=== PATIENT | female | born 1940 ===

== ENCOUNTER 2023-04-07 20:52 | Inpatient (IN) | payer OTHER, SELFPAY ==
[2023-04-07] VITALS (70 sets, daily range): BP systolic 61–147; BP diastolic 26–107; BMI 22.7
--- NOTE | 2023-04-07 15:43 | ED.GENMED ---
History of Present Illness
<Jayleen Sullivan NP - Last Filed: 04/09/23 18:43>
General
Chief Complaint: Change in Mental Status
Source: ambulance crew and shelter
Exam Limitations: altered mental status
Time Seen by Provider: 04/07/23 15:37
Nursing documentation reviewed up to this point in time: agreed with
Travel History
Have you had any contact with someone who has COVID-19?: Unable to Answer
Do you have any symptoms of coronavirus? Fever > 100 degrees, chills, cough, shortness of breath, sore throat, loss of taste or smell, muscle aches, or headache?: Unable to Answer
History of Present Illness
History of Present Illness:
Patient to ED from [facility] for lethargy. Transport history of lethargy, severe cough after dialysis today. Pulse ox 80-83% RA prior to transfer here. Patient turning head to name but not opening eyes. No prior treatment at our facility.
Spoke with her sister Nancy. She was recently inpatient in [place] for heart issues. Sister reports that patient was told she needed a stent. Son requested transfer to [place]. [place] did not feel she was a candidate for surgery. She was
discharged to [facility].
Past History
<Jayleen Sullivan LABORATORY ASST - Last Filed: 04/09/23 18:43>
Past History
ED Past Medical History: CAD, CHF, HTN, Hypercholesterolemia, NIDDM, Renal failure (CRF, on dialysis) and Other (Hyperparathyroidism, aortic valve stenosis, thrombocytopenia)
ED Past Surgical History: Cardiac (pacemaker)
Review of Systems
<Jayleen Sullivan NP - Last Filed: 04/09/23 18:43>
Review of Systems
Allergies reviewed?: Yes
Other source history: shelter and ambulance crew
All Other Systems: ROS reviewed and negative except as documented in HPI and ROS
Constitutional: Reports fatigue
EENT: Reports no symptoms
Respiratory: Reports cough and other (hyposemia)
Cardiac: Reports no symptoms
ABD/GI: Reports no symptoms
: Reports other (CRF, on dialysis)
Musculoskeletal: Reports no symptoms
Skin: Reports no symptoms
Neurological: Reports weakness and other (Lethargic)
Psychiatric: Reports no symptoms
Phy Exam
<Jayleen Sullivan NP - Last Filed: 04/09/23 18:43>
General Physical Exam
General Presentation: moderate distress
General age: appears stated age
General Skin: warm and dry
General Habitus: elderly
Cardiovascular Exam
Cardiovascular Exam: regular rate/rhythm
Pulmonary Exam
Pulmonary Exam: decreased breath sounds
Gastrointestinal Exam
Gastrointestinal Exam: normal bowel sounds, non tender, soft and no organomegaly
Musculoskeletal Exam
Musculoskeletal Exam: neuro vasc intact
Skin Exam
Skin Exam: normal color and no rash
Course
<Jayleen Sullivan NP - Last Filed: 04/09/23 18:43>
Orders/Labs/Results
Orders:
Orders
04/07/23 Dinner
NPO
Allow oral meds: No
Allow clear liquids: No
04/07/23 15:18
Electrocardiogram (*1) Urgent
Reason for Study: Shortness of Breath
EKG- Treatment ONCE
04/07/23 15:36
Complete Blood Count/With Diff Urgent
04/07/23 15:41
CR Chest - 2 Views Urgent
Comment:
Reason For Exam: cough
04/07/23 15:42
0.9% Sodium Chloride 1000 ml [Nss] 1,000 ml IV BOLUS
04/07/23 15:50
COVID-19 Antigen Urgent
Source: Nasal Swab
Lactic Acid Q4H
Comment: CANCEL 2nd LACTIC ACID IF 1st LACTIC ACID IS LESS THAN 2
Blood Culture Q30M
GRECIA Source: Blood/Venous
Specimen Description:
Influenza A+B Rapid Molecular Urgent
GRECIA Source: Nasal Swab
Specimen Description:
04/07/23 17:36
Urinalysis Reflex To Culture Urgent
Date Specimen was Collected: 04/07/23
Time Specimen was Collected: 17:35
Urine Microscopic Reflex Cult Urgent
Urine Culture Urgent
GRECIA Source: U
Specimen Description:
Date Specimen was Collected: 04/07/23
Time Specimen was Collected: 17:35
04/07/23 17:37
Comprehensive Metabolic Panel Urgent
Triglycerides Urgent
Comment: ADDED
Blood Culture Q30M
GRECIA Source: Blood/Venous
Specimen Description:
04/07/23 18:57
Add On- LAB Urgent
Tests Added?: BNP
04/07/23 19:07
NORepinephrine 4 MG/250 ML [Levophed] 4 mg in 250 ml IV NOW
Initial dose in mcg/min, then titrate:: 4
Titrate to keep:: SBP > 90 mmHg
Titrate by mcg/min:: 1-2 mcg/min
Frequency of titrations (minutes):: 5
Maximum dose in ICU in mcg/min:: 30
Maximum dose in IMU in mcg/min:: 8
Maximum dose in IVU in mcg/min:: 4
Begin to taper infusion when:: Remained at goal for 4hrs
Taper by mcg/min:: 1-2 mcg/min
Frequency of taper (minutes) if patient maintains goal:: 30
Taper to off?: Yes
If infusion off & no longer maintaining goal:: Contact Provider
04/07/23 19:08
Bipap [RESP] Urgent
Patient to use own unit?: No
Inspiratory Pressure (cm H2O): 10
Expiratory Pressure (cm H2O): 5
04/07/23 20:02
Lactic Acid Q4H
Comment: CANCEL 2nd LACTIC ACID IF 1st LACTIC ACID IS LESS THAN 2
NT-proBNP Urgent
Troponin I Urgent
04/07/23 20:04
Cefepime HCl [Maxipime] 1,000 mg IV NOW STA
04/07/23 20:18
Sterile Water [Sterile Water For Injection] 10 ml .ROUTE .[facility]-MED ONE
04/07/23 20:32
Admit/Transfer Patient As Directed
Co-Sign Provider:
Level of Care: Inpatient admission
Assign to:: ICU
Physician / Group: leodan
Diagnosis: pulmonary edema
Reason for Hospitalization: pulmonary edema
Expected length of stay greater than two midnights?: Yes
ELOS- Estimated Length of Stay in days: 2
I certify the patient meets the requirements for IP care: Yes
04/07/23 20:33
Code Status As Directed
Resuscitation Status: Full Code
04/07/23 21:52
Activity As Directed
Activity Level: As Tolerated
Vital Signs As Directed
Frequency: Per unit guidelines
DX Deep Vein Thrombosis Video Routine
04/07/23 22:00
VANCOMYCIN Pharmacy to Dose [VANCOCIN Pharmacy to Dose] 1 each Pharmacy To Prepare [Call Pharmacy To Prepare] 0 ml IV PER PROTOCOL
04/08/23 02:00
Piperacillin/Tazo 2.25 Gram [Zosyn] 2.25 grams in 50 ml IV Q8H
04/08/23 05:05
Complete Blood Count/With Diff IN AM
Comprehensive Metabolic Panel IN AM
04/08/23 08:00
Heparin 5,000 units SC Q12
Abnormal Lab Results
04/07/23 04/07/23 04/07/23
15:36 15:50 17:36
RBC 3.23 L 10^6/uL
(4.20-5.40)
Hgb 10.4 L g/dL
(12.0-16.0)
Hct 31.6 L %
(37.0-47.0)
MCH 32.2 H pg
(27.0-31.0)
MCHC 32.9 L g/dL
(33.0-37.0)
RDW 23.3 H %
(11.5-14.5)
MPV 12.1 H fL
(7.4-10.4)
Abs Immat Gran (auto) 0.1 H 10^3/uL
(0-0.05)
Absolute Neuts (auto) 8.9 H 10^3/uL
(1.4-6.5)
Absolute Lymphs (auto) 0.6 L 10^3/uL
(1.2-3.4)
Immature Gran % 0.8 H %
(0-0.5)
Neutrophils % 87.5 H %
(42.2-75.2)
Lymphocytes % 6.2 L %
(20.5-51.1)
Carbon Dioxide
Creatinine
Glucose
Lactic Acid 3.4 H mmol/L
(0.7-2.0)
Calcium
Troponin I
Total Protein
Albumin
Urine Ketones Trace A
(Negative)
Ur Occult Blood Reflex 3+ A
(Negative)
Leukocyte Esterase Rfl 2+ A
(Negative)
Urine WBC (Reflex) >100 A /HPF
(0-5)
Urine Bacteria (Reflex) Many A
(Negative)
Urine Albumin (Reflex) 2+ A
(Neg - Trace)
04/07/23 04/07/23
17:37 20:02
RBC
Hgb
Hct
MCH
MCHC
RDW
MPV
Abs Immat Gran (auto)
Absolute Neuts (auto)
Absolute Lymphs (auto)
Immature Gran %
Neutrophils %
Lymphocytes %
Carbon Dioxide 21 L mmol/L
(22-30)
Creatinine 2.9 H mg/dL
(0.6-1.0)
Glucose 100 H mg/dl
(70-99)
Lactic Acid 6.1 H* mmol/L
(0.7-2.0)
Calcium 7.9 L mg/dl
(8.4-10.2)
Troponin I 1.150 H* ng/ml
Total Protein 5.4 L g/dl
(6.3-8.2)
Albumin 3.0 L g/dl
(3.5-5.0)
Urine Ketones
Ur Occult Blood Reflex
Leukocyte Esterase Rfl
Urine WBC (Reflex)
Urine Bacteria (Reflex)
Urine Albumin (Reflex)
04/07/23 15:36
04/07/23 17:37
Vital Signs
Initial and Last Documented VS:
Initial Vital Signs
Temp Pulse BP Pulse Ox
98.0 F 63 94/53 99
04/07/23 15:17 04/07/23 15:17 04/07/23 15:17 04/07/23 15:17
Last Documented Vital Signs
Temp Pulse Resp BP Pulse Ox
101.8 F H 89 26 133/103 100
04/12/23 07:20 04/12/23 09:00 04/12/23 09:00 04/09/23 11:41 04/12/23 08:00
<Alberto Betancourt, DO - Last Filed: 04/12/23 09:10>
Orders/Labs/Results
Orders:
Orders
04/07/23 Dinner
NPO
Allow oral meds: No
Allow clear liquids: No
04/07/23 15:18
Electrocardiogram (*1) Urgent
Reason for Study: Shortness of Breath
EKG- Treatment ONCE
04/07/23 15:36
Complete Blood Count/With Diff Urgent
04/07/23 15:41
CR Chest - 2 Views Urgent
Comment:
Reason For Exam: cough
04/07/23 15:42
0.9% Sodium Chloride 1000 ml [Nss] 1,000 ml IV BOLUS
04/07/23 15:50
COVID-19 Antigen Urgent
Source: Nasal Swab
Lactic Acid Q4H
Comment: CANCEL 2nd LACTIC ACID IF 1st LACTIC ACID IS LESS THAN 2
Blood Culture Q30M
GRECIA Source: Blood/Venous
Specimen Description:
Influenza A+B Rapid Molecular Urgent
GRECIA Source: Nasal Swab
Specimen Description:
04/07/23 17:36
Urinalysis Reflex To Culture Urgent
Date Specimen was Collected: 04/07/23
Time Specimen was Collected: 17:35
Urine Microscopic Reflex Cult Urgent
Urine Culture Urgent
GRECIA Source: U
Specimen Description:
Date Specimen was Collected: 04/07/23
Time Specimen was Collected: 17:35
04/07/23 17:37
Comprehensive Metabolic Panel Urgent
Triglycerides Urgent
Comment: ADDED
Blood Culture Q30M
GRECIA Source: Blood/Venous
Specimen Description:
04/07/23 18:57
Add On- LAB Urgent
Tests Added?: BNP
04/07/23 19:07
NORepinephrine 4 MG/250 ML [Levophed] 4 mg in 250 ml IV NOW
Initial dose in mcg/min, then titrate:: 4
Titrate to keep:: SBP > 90 mmHg
Titrate by mcg/min:: 1-2 mcg/min
Frequency of titrations (minutes):: 5
Maximum dose in ICU in mcg/min:: 30
Maximum dose in IMU in mcg/min:: 8
Maximum dose in IVU in mcg/min:: 4
Begin to taper infusion when:: Remained at goal for 4hrs
Taper by mcg/min:: 1-2 mcg/min
Frequency of taper (minutes) if patient maintains goal:: 30
Taper to off?: Yes
If infusion off & no longer maintaining goal:: Contact Provider
04/07/23 19:08
Bipap [RESP] Urgent
Patient to use own unit?: No
Inspiratory Pressure (cm H2O): 10
Expiratory Pressure (cm H2O): 5
04/07/23 20:02
Lactic Acid Q4H
Comment: CANCEL 2nd LACTIC ACID IF 1st LACTIC ACID IS LESS THAN 2
NT-proBNP Urgent
Troponin I Urgent
04/07/23 20:04
Cefepime HCl [Maxipime] 1,000 mg IV NOW STA
04/07/23 20:18
Sterile Water [Sterile Water For Injection] 10 ml .ROUTE .[facility]
04/07/23 20:32
Admit/Transfer Patient As Directed
Co-Sign Provider:
Level of Care: Inpatient admission
Assign to:: ICU
Physician / Group: leodan
Diagnosis: pulmonary edema
Reason for Hospitalization: pulmonary edema
Expected length of stay greater than two midnights?: Yes
ELOS- Estimated Length of Stay in days: 2
I certify the patient meets the requirements for IP care: Yes
04/07/23 20:33
Code Status As Directed
Resuscitation Status: Full Code
04/07/23 21:52
Activity As Directed
Activity Level: As Tolerated
Vital Signs As Directed
Frequency: Per unit guidelines
DX Deep Vein Thrombosis Video Routine
04/07/23 22:00
VANCOMYCIN Pharmacy to Dose [VANCOCIN Pharmacy to Dose] 1 each Pharmacy To Prepare [Call Pharmacy To Prepare] 0 ml IV PER PROTOCOL
04/08/23 02:00
Piperacillin/Tazo 2.25 Gram [Zosyn] 2.25 grams in 50 ml IV Q8H
04/08/23 05:05
Complete Blood Count/With Diff IN AM
Comprehensive Metabolic Panel IN AM
04/08/23 08:00
Heparin 5,000 units SC Q12
Abnormal Lab Results
04/07/23 04/07/23 04/07/23
15:36 15:50 17:36
RBC 3.23 L 10^6/uL
(4.20-5.40)
Hgb 10.4 L g/dL
(12.0-16.0)
Hct 31.6 L %
(37.0-47.0)
MCH 32.2 H pg
(27.0-31.0)
MCHC 32.9 L g/dL
(33.0-37.0)
RDW 23.3 H %
(11.5-14.5)
MPV 12.1 H fL
(7.4-10.4)
Abs Immat Gran (auto) 0.1 H 10^3/uL
(0-0.05)
Absolute Neuts (auto) 8.9 H 10^3/uL
(1.4-6.5)
Absolute Lymphs (auto) 0.6 L 10^3/uL
(1.2-3.4)
Immature Gran % 0.8 H %
(0-0.5)
Neutrophils % 87.5 H %
(42.2-75.2)
Lymphocytes % 6.2 L %
(20.5-51.1)
Carbon Dioxide
Creatinine
Glucose
Lactic Acid 3.4 H mmol/L
(0.7-2.0)
Calcium
Troponin I
Total Protein
Albumin
Urine Ketones Trace A
(Negative)
Ur Occult Blood Reflex 3+ A
(Negative)
Leukocyte Esterase Rfl 2+ A
(Negative)
Urine WBC (Reflex) >100 A /HPF
(0-5)
Urine Bacteria (Reflex) Many A
(Negative)
Urine Albumin (Reflex) 2+ A
(Neg - Trace)
04/07/23 04/07/23
17:37 20:02
RBC
Hgb
Hct
MCH
MCHC
RDW
MPV
Abs Immat Gran (auto)
Absolute Neuts (auto)
Absolute Lymphs (auto)
Immature Gran %
Neutrophils %
Lymphocytes %
Carbon Dioxide 21 L mmol/L
(22-30)
Creatinine 2.9 H mg/dL
(0.6-1.0)
Glucose 100 H mg/dl
(70-99)
Lactic Acid 6.1 H* mmol/L
(0.7-2.0)
Calcium 7.9 L mg/dl
(8.4-10.2)
Troponin I 1.150 H* ng/ml
Total Protein 5.4 L g/dl
(6.3-8.2)
Albumin 3.0 L g/dl
(3.5-5.0)
Urine Ketones
Ur Occult Blood Reflex
Leukocyte Esterase Rfl
Urine WBC (Reflex)
Urine Bacteria (Reflex)
Urine Albumin (Reflex)
04/07/23 15:36
04/07/23 17:37
Vital Signs
Initial and Last Documented VS:
Initial Vital Signs
Temp Pulse BP Pulse Ox
98.0 F 63 94/53 99
04/07/23 15:17 04/07/23 15:17 04/07/23 15:17 04/07/23 15:17
Last Documented Vital Signs
Temp Pulse Resp BP Pulse Ox
101.8 F H 89 26 133/103 100
04/12/23 07:20 04/12/23 09:00 04/12/23 09:00 04/09/23 11:41 04/12/23 08:00
<Jayleen Sullivan NP - Last Filed: 04/09/23 18:43>
*Radiology
Radiology exam reviewed: radiology read reviewed
*Pulse Oximetry
Patient hypoxic: yes
*Critical Care Note
Total Time (30-74mins, 75-104mins- exclusive of procedures): Not Applicable
<Alberto Betancourt DO - Last Filed: 04/12/23 09:10>
*Critical Care Note
Total Time (30-74mins, 75-104mins- exclusive of procedures): 30
comment:
Critical care statement: A total of 30 minutes of critical care time was provided for this patient. This includes management of unstable vital signs, evaluation of the patient at bedside, reviewing the patient's pertinent medical records, discussion
with consultants, review of old EKGs and review of pertinent medical records. This time with separate from time utilized to perform the aforementioned documented procedures
<Jayleen Sullivan LABORATORY ASST - Last Filed: 04/09/23 18:43>
Update Note
Update Note:
Patient to ED from [facility] for lethargy, cough. CXR=CHF Hypotensive. Placed on Levophed. Pulse ox dropping into the mid 80's. Placed on hi-flow. PUlse ox up to 93%. Dr. Betancourt in to speak with patients son. Son indecisive regarding
mothers wishes. Becoming argumentative. Patient is admitted to hospitalist service for respiratory failure, CHF, UTI.
ED Attending Note
<Jayleen Sullivan NP - Last Filed: 04/09/23 18:43>
-
Portions of this chart may have been created with voice recognition software.� Occasional wrong word or��sound alike� substitutions may have occurred due to the inherent limitations of voice recognition software.
<Alberto Betancourt, DO - Last Filed: 04/12/23 09:10>
ED Attending Note
Patient seen and examined by attending physician: Yes
I performed the substantive portion of visit, reviewed & personally made and approve the management plan that is documented in note by myself or GILBERTO.: Yes
ED Attending Note:
I have reviewed and agree with history and treatment plan by Jayleen Sullivan. My exam reveals 82-year-old female hypotension, nonverbal, respiratory distress placed on BiPAP. Patient had refused dialysis, and refused TAVR. She has a DNR and does
not wish for further care. This was discussed with her son, who is unable to make decisions about her care at this time. Discussed with patient's sister, who states patient does not want intubation dialysis or procedures. Patient's oxygen blood
pressure improved, she was admitted to ICU for further treatment.
Discharge Plan
Departure
Patient Disposition: Admit
Date of Disposition: 04/07/23
Time of Disposition: 19:37
Presentation/result/management discussed w/ accepting MD/DO: Hospitalist
Covid-19: Not Applicable
Discharge Problem:
CHF (congestive heart failure), Hypotension, Respiratory failure
Interventions
Interventions:
*General Assessment Last Done: 04/07/23 22:39
*Neglect/Abuse Screening Last Done: 04/07/23 22:39
ED- Fall Risk Assessment Last Done: 04/07/23 22:39
*ED COVID-19 Vaccine History Last Done: 04/07/23 22:39
*Nursing Disposition Last Done: 04/07/23 22:39
ED- Pulmonary Assessment Last Done: 04/07/23 21:05
ED- Neurological Assessment Last Done: 04/07/23 15:23
ED- Cardiac Assessment Last Done: 04/07/23 15:23
Discharge Date and Time
Discharge Date/Time: 04/07/23 22:00
[2023-04-07 15:58] LABS: % Basophils 0.3 % (0-2); % Immature Granulocytes 0.8 % (0-0.5); % Lymphocytes 6.2 % (20.5-51.1); % Monocytes 5.2 % (1.7-9.3); % Neutrophils 87.5 % (42.2-75.2); Absolute Immature Granulocytes 0.1 10^3/uL (0-0.05); Absolute Lymphocytes 0.6 10^3/uL (1.2-3.4); Absolute Monocytes 0.5 10^3/uL (0.1-0.6); Absolute Neutrophils 8.9 10^3/uL (1.4-6.5); Hematocrit 31.6 % (37.0-47.0); Hemoglobin 10.4 g/dL (12.0-16.0); Mean Corp Hgb Conc. 32.9 g/dL (33.0-37.0); Mean Corpuscular Hgb 32.2 pg (27.0-31.0); Mean Corpuscular Volume 97.8 fL (81.0-99.0); Mean Platelet Volume 12.1 fL (7.4-10.4); Nucleated Red Blood Cells % 4.3 %; Platelet Count 186 10^3/uL (130-400); Red Blood Cell Count 3.23 10^6/uL (4.20-5.40); White Blood Cell Count 10.2 10^3/uL (4.8-10.8)
[2023-04-07 16:04] LABS: Red Cell Dist. Width 23.3 % (11.5-14.5)
[2023-04-07 16:09] LABS: Lactic Acid 3.4 mmol/L (0.7-2.0)
[2023-04-07 16:17] LABS: COVID-19 Antigen Negative (Negative)
[2023-04-07 16:49] LABS: Anisocytosis 2+; Macrocytosis 3+; Microcytosis 2+; Normal RBC Morphology No; Poikilocytosis Slight; Polychromasia 1+; Target Cells 1+
[2023-04-07 16:50] LABS: Ovalocytes 1+
[2023-04-07] MEDS: NSS 1000 IV (17:16)
[2023-04-07 17:49] LABS: Urine Albumin 2+ (Neg - Trace); Urine Bilirubin Negative (Negative); Urine Character Mucous (Clear); Urine Color Yellow; Urine Glucose Negative (Negative); Urine Ketone Trace (Negative); Urine Leukocyte 2+ (Negative); Urine Nitrite Negative (Negative); Urine Occult Blood 3+ (Negative); Urine Specific Gravity 1.015 (<1.030); Urine Urobilinogen Negative (Neg - 1+)
[2023-04-07 17:54] LABS: Urine Granular Cast 0-2 /LPF (0); Urine Squamous Cell 0-2 /LPF (Few)
[2023-04-07 17:55] LABS: Urine Bacteria Many (Negative); Urine White Cell >100 /HPF (0-5)
[2023-04-07 18:01] LABS: ALT (SGPT) 21 U/L (0-35); AST (SGOT) 33 U/L (14-36); Alkaline Phosphatase 96 U/L (38-126); Blood Urea Nitrogen 16 mg/dl (7-17); Calcium 7.9 mg/dl (8.4-10.2); Carbon Dioxide 21 mmol/L (22-30); Chloride 104 mmol/L (98-107); Estimated Creatinine Clearance 11 ml/min; Glucose 100 mg/dl (70-99); Potassium 4.4 mmol/L (3.5-5.1); Sodium 135 mmol/L (135-145); Total Protein 5.4 g/dl (6.3-8.2); eGFR 15.87
[2023-04-07] MEDS: LEVOPHED 250 IV (19:17)
[2023-04-07] MEDS: MAXIPIME 1000 MG IV (20:21)
[2023-04-07 20:32] LABS: Lactic Acid 6.1 mmol/L (0.7-2.0)
[2023-04-07 20:50] LABS: NT-proBNP > 27000 pg/ml
--- NOTE | 2023-04-07 20:52 | HPS.HSE ---
Family Physician
-
Family Physician: Jacob Taylor
Chief Complaint
-
hypoxia
History of Present Illness
82-year-old female past medical history of end-stage renal disease on hemodialysis, CAD, aortic stenosis, CHF, pacemaker, hypertension, hypercholesteremia,presenting from [facility] for lethargy. Patient had severe cough after dialysis today.
Pulse ox was 83% on room air prior to transfer here. Per patient's son she was recently admitted at another hospital, possibly [facility] (In [place]) as per son. Apparently as per him patient required cardiac stent for CAD
as well as TAVR but patient had refused TAVR and cardiac stenting was not performed for unclear reason. Unclear if CABG was necessary. Transferred to [place] was considered they did not feel she was a candidate for surgery. She was eventually
discharged to [facility].
Patient cannot provide any history at this time.
Patient does not drink alcohol or smoke.
Medical History
Past Medical History
Past Medical History: Reports Other (end-stage renal disease on hemodialysis, CAD, aortic stenosis, CHF, pacemaker, hypertension, hypercholesteremia)
Past Surgical History: Reports None
Social History
Tobacco: Non-smoker
Alcohol: None
Drug: None
Family History
Family History: Not pertinent
Allergies / Home Medications
Allergies reflects when Allergies were last updated in [facility].
Home Medications with original date entered in [facility]
Allergy/Medication List:
Allergies
Allergy/AdvReac Type Severity Reaction Status Date / Time
No Known Allergies Allergy Unverified 04/07/23 15:32
Home Medications
acetaminophen 325 mg tablet (Tylenol) 650 mg PO Q6HPRN PRN mild pain 04/07/23
amlodipine 10 mg tablet (Norvasc) 10 mg PO DAILY Gastrointestinal Issue 04/07/23
atorvastatin 20 mg tablet (Lipitor) 20 mg PO HS High Cholesterol 04/07/23
bisacodyl 10 mg rectal suppository (Dulcolax (bisacodyl)) 10 mg ME DAILYPRN PRN constipation 04/07/23
guaifenesin 100 mg/5 mL oral liquid (Tangela-Tussin) 200 mg PO Q4HPRN PRN cough 04/07/23
metoprolol succinate 25 mg tablet,extended release 24 hr (Toprol XL) 25 mg PO DAILY Blood Pressure 04/07/23
Review of Systems
-
History Source: Patient
A 12 point ROS was completed and negative except as noted: Yes
Constitutional: Reports No Symptoms
EENT: Reports No Symptoms
Respiratory: Reports No Symptoms
Cardiac: Reports No Symptoms
Abdomen/GI: Reports No Symptoms
: Reports No Symptoms
Musculoskeletal: Reports No Symptoms
Skin: Reports No Symptoms
Neurological: Reports No Symptoms
Endocrine: Reports No Symptoms
Hematologic/Lymphatic: Reports No Symptoms
Psych: Reports No Symptoms
Physical Exam
Vital Signs
Vital Signs
Temp Pulse BP Pulse Ox
98.0 F 63 133/57 93
04/07/23 15:17 04/07/23 19:50 04/07/23 19:50 04/07/23 19:50
Physical Exam
General: Well Developed, Well Nourished and No Apparent Distress
HEENT: NormoCephalic, Moist mucous membranes and Atraumatic
Respiratory: Clear
Cardiac: S1/S2 and Regular Rhythm; No Murmur or Rub
GI: Soft, Non Tender, Non Distended and Normal Bowel Sounds; No Organomegaly
Rectal: Deferred by Provider
Musculoskeletal: No Clubbing, No Cyanosis and No Edema
Skin: No Rash
Neuro: Nonfocal/grossly intact
Laboratory Results
-
04/07/23 15:36
04/07/23 17:37
Laboratory Results
Lactic Acid 6.1 mmol/L (0.7-2.0) H* 04/07/23 20:02
Total Bilirubin 1.0 mg/dl (0.2-1.3) 04/07/23 17:37
AST 33 U/L (14-36) 04/07/23 17:37
ALT 21 U/L (0-35) 04/07/23 17:37
Alkaline Phosphatase 96 U/L (38-126) 04/07/23 17:37
Troponin I 1.150 ng/ml H* 04/07/23 20:02
Data Reviewed
-
Lab Data: Labs Reviewed by me
Old Records: Reviewed
Impression/Plan
-
IMPRESSION:
PLAN:
# Hypoxic respiratory failure secondary acute on chronic CHF exacerbation, unclear type
# History of ESRD status post dialysis today
-Patient initially hypotensive with blood pressure 60 systolic
-Chest x-ray shows interstitial/alveolar pulmonary edema with moderate bilateral pleural effusions
-1 L IV fluids, Levophed started
-Patient currently on nonrebreather, BiPAP to be initiated
-Check echocardiogram
-Obtain records from [facility]
-Cardiology consulted
-Patient has midline, IJ for dialysis
-Barcenas catheter to be placed
-Nephrology consulted for dialysis
# Septic shock secondary to UTI/possible pneumonia
-Urinalysis shows greater than 100 WBC, +2 leukocyte esterase
-Lactate of 6.1
-Check blood cultures
-Maintenance IV fluids with goal of reducing Levophed for eventual dialysis
-Vancomycin/Zosyn
End-stage renal disease on hemodialysis
-Underwent dialysis today
-Nephrology consulted for dialysis
Coronary artery disease
-Unclear if she was CABG candidate or stent was not necessary
History of severe aortic stenosis
-Patient was being considered for TAVR
Essential hypertension
-Hold amlodipine
-Hold metoprolol
Hypercholesterolemia
-Hold statin
Chronic anemia
Full code
DVT prophylaxis heparin
N.p.o.
--- NOTE | 2023-04-07 21:01 | PHA.VAN.IN ---
Assessment
- Assessment
Renal Function: Patient has ESRD, on chronic Hemodialysis
Hemodialysis Schedule: MWF
Concomitant Antimicrobials: ZOSYN
- Previous Dosing Experience
Previous Regimen: NONE
Plan
- Plan
Initial / Loading Dose: 1250MG
Maintenance Regimen: DOSING BY RANDOM LEVEL
Monitoring: RANDOM VANCOMYCIN LEVEL 04/08/23 AM
Pharmacokinetics Vancomycin I
- -
Patient Age: 82
Patient Sex: Female
Vancomycin Day #: 1
Indication: Pulmonary/Respiratory (SEPTIC SHOCK)
Requesting Provider: DARELL
Height / Weight:
Height 5 ft
Actual Weight 52.7 kg
Pertinent Past Medical History: ESRD
- Vital Signs / Lab Results
Temp Pulse BP Pulse Ox
98.0 F 63 110/76 95
04/07/23 15:17 04/07/23 20:51 04/07/23 20:51 04/07/23 20:51
Lab Results - Hematology
04/07/23
15:36
WBC 10.2
Lab Results - Chemistry
04/07/23 04/07/23
15:36 17:37
BUN Cancelled 16
Creatinine Cancelled 2.9 H
Estimated Creat Clear Cancelled 11
Albumin Cancelled 3.0 L
04/07/23 04/07/23
15:50 20:02
Lactic Acid 3.4 H 6.1 H*
Lab Results - Urine
04/07/23
17:36
Urine Nitrite (Reflex) Negative
Leukocyte Esterase Rfl 2+ A
Urine WBC (Reflex) >100 A
Ur Squamous Epith Cells 0-2
Urine Bacteria (Reflex) Many A
Microbiology Results
04/07/23 15:50 Influenza Types A & B (BRIAN) - Final
Nasal Swab Negative for Influenza A & B, NAAT
Negative results must be combined with clinical observations
and patient history.
Nucleic Acid Amplification test (NAAT)performed on the
[employer] NOW platform.
[2023-04-07] MEDS: VANCOCIN 275 MG IV (21:34)
--- NOTE | 2023-04-07 22:00 | PTCARENOTE ---
Pt admitted to unit from ED via stretcher. Pt appears to be unresponsive. Received pt on levo gtt infusing at 7 mcg/min via right midline. Pt on high flow O2 and non rebreather at max capacity satting at 90% pulse ox. On auscultation pt lungs sound
coarse, rhonchorous, diminished, and with an inspiratory wheeze.
--- NOTE | 2023-04-07 22:50 | W.PN.ANESINT ---
Anesthesia Intubation Note
- Intubation Note
Intubation Note:
Diagnosis: respiratory distress
Blade: glidescope
Tube Size: 8.0
Depth: 22cm at teeth
Side Taped: center
Drugs Used: 30mg propofol, 20mg succinylcholine, 600mcg phenylephrine
Grade View: 1 via live glidescope
EtCO2 Present: yes color change on ETCO2 detector
Atraumatic: yes
Attempts: 1
Insertion Start and Stop Time: 2227 start 2234 end
SaO2 Pre: 91
SaO2 Post: 99
Glidescope Used: yes
Other Airway Adjustments:
Pre-Oxygenated: yes
Portable Chest X-Ray:
RSI:
Suctioned: minimal secretions
Bilateral Breath Sounds Confirmed: bilateral breath sounds noted, no breath sounds over abdomen or stomach
Vent Settings:
Settings per _yes__Attending Physician
--- NOTE | 2023-04-07 22:59 | CON.MD ---
Consultation - Medical
-
IMP:
Acute Hypoxic respiratory failure
acute on chronic CHF exacerbation, unclear type
suspected Septic shock secondary to UTI/possible pneumonia
End-stage renal disease on hemodialysis-[facility]
Coronary artery disease-Unclear if she was CABG candidate or stent was not necessary
History of severe aortic stenosis
Essential hypertension
Hypercholesterolemia
Chronic anemia
PPM
Plan:
A/w pulm edema hypotension from [facility]
had HD today but CXR pulm edema
s/p IVF initially for hypotension
now intubated
pressors to keep MAP>65
Believe she has sig vascular burden with severe and hard to maintain hemodynamics on HD
will plan HD tomorrow, but concern if she will tolerate
abx per primary, await cxxs
has tunneled catheter-ESRD status information is lacking since she never been to our system before
we really need GOC discussion with son
[id number]
[2023-04-07] MEDS: SUBLIMAZE 50 MCG IV ×2 (23:00→23:45)
--- NOTE | 2023-04-07 23:08 | W.PN.SEPSIS ---
Sepsis
Vital Signs
Temp Pulse Resp BP Pulse Ox
98.0 F 76 30 134/92 97
04/07/23 15:17 04/07/23 22:15 04/07/23 22:15 04/07/23 22:00 04/07/23 22:57
Physical Exam
Physical Exam:
A focused exam was performed after fluid resuscitation.
Capillary Refill
Bilateral Upper Extremity:
Adelia Time: Less than 3 sec
Bilateral Lower Extremity:
Adelia Time: Less than 3 sec
Pulse Evaluation
Bilateral Radial:
Pulse Evaluation: Present
Bilateral Dorsalis Pedis:
Pulse Evaluation: Present
--- NOTE | 2023-04-07 23:09 | W.PN.UPDATE ---
Update Note
Progress Note Update
04/07/23
Patient upon arrival to the ICU became hypoxic sustaining 70s% on non rebreather and high flow nasal cannula. After transferring and turning the patient she became more hypoxic sustaining 60s%, she was immediately bagged with ambu mask, patient was
minimally responsive only with noxious stimuli. Discussed with patient's son, Lam Tapia, about intubation and plan of care. While explaining patient's critical condition and pulmonary edema which is causing the hypoxia, Lam had multiple
questions which were answered and rephrased/re-explained at this request but he then became belligerent with myself and staff. Lam expressed that he had verbal altercation in the emergency room with 'Dr. Whitlock' as he described the physician trying
to explain his mother's critical condition and looking for guidance as to plan of care and next medical interventions. He was verbally asked three times if intubation and FULL CODE status was what he wanted for his mother, he stated 'yes'. He was
asked to leave for the intubation procedure. Anesthesia was paged STAT for intubation.
2229- Patient was intubated by PORTRAIT CONSULTANT. Propofol gtt, fentanyl prn and fentanyl gtt ordered per light sedation protocol.
2299- Dr. Noble, process treater at bedside, recommendations given. At this time patient is critical and hypotensive on levophed gtt, unclear if she would tolerate dialysis.
--- NOTE | 2023-04-07 23:35 | PTCARENOTE ---
Shortly after being transferred to unit pt's respiratory status has worsened. Pulse ox in the 70s. Anesthesia notified and pt was intubated. Propofol gtt initiated and PRN fentanyl bolus doses administered by this RN for sedation per protocol. Levo
gtt titrated up 14 mcg/min due to hypotension per protocol.
[2023-04-08] VITALS (85 sets, daily range): BP systolic 69–135; BP diastolic 23–95; BMI 21.0
[2023-04-08 00:10] LABS: Triglycerides 103 mg/dl (10-149)
[2023-04-08 00:33] LABS: B.E. -10.7 mmol/L; O2 Saturation % 97.8 % (94-98); PCO2 37 mmHg (32-35); PO2 116 mmHg (83-108); pH 7.24 (7.35-7.45)
[2023-04-08 00:34] LABS: O2 Therapy NC
[2023-04-08 00:35] LABS: HCO3 15.9 mmol/L (21-28)
[2023-04-08] MEDS: LEVOPHED 250 IV ×4 (01:51→15:00)
[2023-04-08] MEDS: ZOSYN 50 IV ×3 (02:13→17:46)
[2023-04-08] MEDS: SODIUM BICARBONATE 50 MEQ IV (03:45)
--- NOTE | 2023-04-08 04:30 | PTCARENOTE ---
Pt's BP improving. Levo gtt tapered per protocol. Pt tolerating vent settings satting at 100% pulse ox. VSS.
[2023-04-08 05:17] LABS: Venous Blood Gas B.E. -6.3 mmol/L (-4 to +4); Venous Blood Gas HCO3 20.6 mmol/L (22-27); Venous Blood Gas pCO2 46 mmHg (35-48); Venous Blood Gas pH 7.26 (7.32-7.43); Venous Blood Gas pO2 67 mmHg (30-50)
[2023-04-08 05:34] LABS: APTT 33.1 Sec (23.4-35.0); INR 1.52; PT 18.4 Sec (11.4-14.6)
[2023-04-08 05:46] LABS: % Basophils 0.4 % (0-2); % Immature Granulocytes 0.6 % (0-0.5); % Lymphocytes 1.9 % (20.5-51.1); % Monocytes 3.4 % (1.7-9.3); % Neutrophils 93.7 % (42.2-75.2); Absolute Basophils 0.1 10^3/uL (0-0.2); Absolute Immature Granulocytes 0.1 10^3/uL (0-0.05); Absolute Lymphocytes 0.4 10^3/uL (1.2-3.4); Absolute Monocytes 0.8 10^3/uL (0.1-0.6); Absolute Neutrophils 20.5 10^3/uL (1.4-6.5); Hematocrit 31.6 % (37.0-47.0); Hemoglobin 10.5 g/dL (12.0-16.0); Mean Corp Hgb Conc. 33.2 g/dL (33.0-37.0); Mean Corpuscular Volume 99.4 fL (81.0-99.0); Mean Platelet Volume 11.9 fL (7.4-10.4); Nucleated Red Blood Cells % 6.5 %; Platelet Count 142 10^3/uL (130-400); Red Blood Cell Count 3.18 10^6/uL (4.20-5.40); Red Cell Dist. Width 23.1 % (11.5-14.5); White Blood Cell Count 21.8 10^3/uL (4.8-10.8)
[2023-04-08 05:51] LABS: Lactic Acid 3.9 mmol/L (0.7-2.0)
[2023-04-08 05:52] LABS: ALT (SGPT) 82 U/L (0-35); AST (SGOT) 156 U/L (14-36); Albumin 2.8 g/dl (3.5-5.0); Alkaline Phosphatase 104 U/L (38-126); Blood Urea Nitrogen 24 mg/dl (7-17); Calcium 8.5 mg/dl (8.4-10.2); Carbon Dioxide 21 mmol/L (22-30); Chloride 100 mmol/L (98-107); Estimated Creatinine Clearance 9 ml/min; Glucose 176 mg/dl (70-99); Potassium 4.1 mmol/L (3.5-5.1); Sodium 136 mmol/L (135-145); Total Bilirubin 1.2 mg/dl (0.2-1.3); Total Protein 5.2 g/dl (6.3-8.2); eGFR 12.67
[2023-04-08 05:56] LABS: Vancomycin Random 18.9 ug/ml
--- NOTE | 2023-04-08 07:25 | PTCARENOTE ---
Received pt intubated and sedated with bilateral soft wrist restraints intact. She moves her eyes with verbal and tactile stimuli but is not following commands. She moves all extremities with stimuli and repositioning. Doppler popliteal pulses
bilaterally, feet cold with scattered scabs and extremely dry flaking skin. Poor capillary refill. Weak radial pulses. Loud Murmur. #8ETT secured 24 cm right lip. Tolerating AC 16/350/.10/+5. Breath sound coarse rhonchi throughout. Late expiratory
wheeze on the left. Josephine frothy secretions via ETT. Hypoactive BSX4. Anuric. Right ACW tunnelled HD catheter capped, dressing CDI. Right upper arm midline with Levophed 12mcg/min & Propofol 20mcg/kg/min. Unable to obtain peripheral access.
Aspiration precautions maintained. Safe environment maintained.
--- NOTE | 2023-04-08 07:32 | CON.INTV ---
Consultation
Consultation Request
Date/Time Consultation Requested: 04-08-23
Date/Time Consultation Performed: 04-08-23
Requesting Provider: Hospitalist
Performing Provider: Dr Coffey
Reason for Consultation: hypoxemia
Medical History
-
Chief Complaint: dyspnea
History of Present Illness:
Mrs Usha Tapia is an 82/W adm 04-07 from [place] with lethargy and severe cough after HD on DOA, and POx 80-83% on RA prior to transfer.
PMH: CAD, CHF, HTN, NIDDM, CKD on HD, , reported recent adm to [facility] where she was recommended coronary stenting and TAVR but patient refused (not accepted in transfer to [place] as was not a surgical candidate).
On adm (first adm), hypoxemia, hypotension (received 1L NS at ER), developed pulmonary edema and worsening hypoxemia, intubated at ICU.
Past Medical History
Past Medical History: Other (see A&P for PMH/PSH)
Social History
Tobacco: Non-smoker
Alcohol: None
Drug: None
Living: Fdc
Employment: Not Employed
Family History
Family History: Reviewed & Not Pertinent
Allergies / Home Medications
Allergies
Allergy/AdvReac Type Severity Reaction Status Date / Time
No Known Allergies Allergy Unverified 04/07/23 15:32
Home Medications
Medication Instructions Recorded Confirmed Last Taken Type
acetaminophen 325 mg tablet 650 mg PO Q6HPRN PRN mild pain 04/07/23 04/07/23 Unknown History
(Tylenol)
amlodipine 10 mg tablet (Norvasc) 10 mg PO DAILY Gastrointestinal 04/07/23 04/07/23 Unknown History
Issue
atorvastatin 20 mg tablet (Lipitor) 20 mg PO HS High Cholesterol 04/07/23 04/07/23 Unknown History
bisacodyl 10 mg rectal suppository 10 mg SC DAILYPRN PRN constipation 04/07/23 04/07/23 Unknown History
(Dulcolax (bisacodyl))
guaifenesin 100 mg/5 mL oral 200 mg PO Q4HPRN PRN cough 04/07/23 04/07/23 Unknown History
liquid (Tangela-Tussin)
metoprolol succinate 25 mg 25 mg PO DAILY Blood Pressure 04/07/23 04/07/23 Unknown History
tablet,extended release 24 hr
(Toprol XL)
Review of Systems
-
Unable to Obtain full review of systems at this time due to: Patient Intubation
Vitals / Labs / Diagnostic Testing
Vital Signs
Temp Pulse Resp BP Pulse Ox
97.6 F 63 20 109/42 100
04/08/23 04:10 04/08/23 07:15 04/08/23 07:15 04/08/23 07:00 04/08/23 07:15
Lab Data
04/08/23 05:05
04/08/23 05:05
Laboratory Results
04/08/23 04/08/23
00:26 05:05
PT 18.4 H
INR 1.52
APTT 33.1
pH 7.24 L
pCO2 37 H
pO2 116 H
HCO3 15.9 L*
O2 Delivery Level Nc
Microbiology
04/07/23 15:50 Nasal Swab Influenza Types A & B (BRIAN) - Final
Negative for Influenza A & B, NAAT
Negative results must be combined with clinical observations
and patient history.
Nucleic Acid Amplification test (NAAT)performed on the
[employer] platform.
Diagnostic Testing:
Physical Exam
-
HEENT: Normocephalic and Moist Mucous Membranes
Cardiovascular: Regular Rhythm and Peripheral Edema (trace GAVIN)
Respiratory: Wheeze (n), Rales and Accessory Resp Muscle Use (n)
GI: Soft and Non Distended
Neurology: Other (sedated)
General: Respiratory Distress
Assessment
-
Assessment:
Mrs Usha Tapia is an 82/W adm 04-07 from [place] with lethargy and severe cough after HD on DOA, and POx 80-83% on RA prior to transfer. PMH: CAD, CHF, HTN, NIDDM, CKD on HD, , reported recent adm to OSH where she was recommended coronary stenting
and TAVR but patient refused (not accepted in transfer to [facility] as was not a surgical candidate). On adm (first adm), hypoxemia, hypotension (received 1L NS at ER), developed pulmonary edema and worsening hypoxemia, intubated at ICU.
Impression:
Acute hypoxemic respiratory failure
Intubated at ICU 04-07
Pulmonary edema
Missed HD session 04-05 (last HD 04-03)
Suspected sepsis
Leukocytosis
Anemia
Metabolic/lactic acidosis
Elevated troponins and BNP: NSTEMI
Mild transaminitis
COVID/flu negative
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
CAD
CHF
PPM
HTN
NIDDM
CKD on HD
Reported recent adm to OSH where she was recommended coronary stenting and TAVR but patient refused
Plan:
Acute hypoxemic respiratory failure
Intubated at ICU 04-07
Pulmonary edema
Missed HD session 04-05
Last HD 04-07
Due to hypotension received 1U NS at ER
Continue ACV
Current settings: 16-350-5-1.0 (POx 100%)
Sedation/analgesia: propofol/fentanyl
Daily sedation holiday for MS and SBT
Started inpatient HD 04-08, goal UF 2.5-3 L
R chest tunnelized HD cath
D/w Renal nutrition consultant
Continue pressor (NE) to assist HD and for suspected sepsis syndrome
Added vasopressin gtt
Keep MAP>=65
Holding outpatient a-HTN meds (amlodipine, metoprolol succinate XL)
Follow cxs: blood, U
MRSA screening pending
Added resp sec cxs
Empiric atbs on adm: vanco/zosyn for suspected sepsis, limited information to gauge this possibility at this time
Adjust atbs per cx results
NSTEMI
Known h/o CAD, reportedly declined coronary stening, also h/o declining TAVR
Started IV heparin gtt
Limited vascular access
IV team could not place RUE PICC 04-07, but put midline cath
IV team placed LUE PICC 04-08 but tip coiled and could not be repositioned, IRad aware and will adjust/replace
DHT
Enteral feedings
Reportedly DNR/DNI at time of admission, now full code by son
Prognosis guarded
D/w MDT
Critical care time: 35 min
Diagnostic tests:
CXR 04-07-23: no previous films. pulm vasc congestion. R chest tunnelized HD cath. RUE midline cath.
CXR 04-08-23: interim intubation, pulm edema, small bilateral pleural effusions
--- NOTE | 2023-04-08 08:27 | PHA.VAN.FU ---
Vancomycin Assessment / Plan
- Assessment
Hemodialysis Schedule: MWF
WBC's are: Trending Up
In the past 24 hrs, patient has been: Afebrile
Concomitant Antimicrobials: piperacillin/tazobactam
- Assessment - Therapeutic Drug Monitoring
Random Level: 18.9 - drawn ~7.5H after initial dose of 1250mg
- Dosing Plan
Dosing by Level: Re-dose today (500mg - receiving supplemental HD today)
- Monitoring Plan
Random Level: pre-HD 04/09
- Follow Up
Pharmacy will continue to follow.
Vancomycin Follow UP
- -
Patient Age: 82
Patient Sex: Female
Vancomycin Day #: 2
Indication: Pulmonary/Respiratory
Requesting Provider: Dr. Kim
Pertinent Antimicrobial Allergies:
NKDA
Height / Weight:
Height 5 ft
Actual Weight 48.7 kg
Pertinent Past Medical History: ESRD on HD MWF
- Vital Signs / Lab Results
Temp Pulse Resp BP Pulse Ox
97.7 F 63 20 109/42 100
04/08/23 07:30 04/08/23 07:15 04/08/23 07:15 04/08/23 07:00 04/08/23 07:54
Lab Results - Hematology
04/07/23 04/08/23
15:36 05:05
WBC 10.2 21.8 H
Lab Results - Chemistry
04/07/23 04/07/23 04/08/23
15:36 17:37 05:05
BUN Cancelled 16 24 H
Creatinine Cancelled 2.9 H 3.5 H
Estimated Creat Clear Cancelled 11 9
Albumin Cancelled 3.0 L 2.8 L
04/07/23 04/07/23 04/08/23
15:50 20:02 05:05
Lactic Acid 3.4 H 6.1 H* 3.9 H
Lab Results - Urine
04/07/23
17:36
Urine Nitrite (Reflex) Negative
Leukocyte Esterase Rfl 2+ A
Ur Squamous Epith Cells 0-2
Microbiology Results
04/07/23 15:50 Influenza Types A & B (BRIAN) - Final
Nasal Swab Negative for Influenza A & B, NAAT
Negative results must be combined with clinical observations
and patient history.
Nucleic Acid Amplification test (NAAT)performed on the
[employer] platform.
Therapeutic Drug Monitoring
Random Vancomycin 18.9 ug/ml 04/08/23 05:05
--- NOTE | 2023-04-08 09:45 | W.PN.HOSP.TC ---
Today's Communication/Plan
-
Total Critical Care Time__45___ minutes. I was immediately available to the patient and staff. I personally examined, reviewed labs, diagnostic images/reports, interpretations, treatment plans, discussed patient care with other providers and
family or caregivers (if patient is unable to make decisions), entered orders as appropriate and documented the medical record.
Assessment / Plan
Assessment / Plan
Impression:
Acute hypoxic respiratory failure.
Acute pulmonary edema
Shock with severe hypotension requiring IV pressors, suspect cardiogenic
Lactic acidosis
Concern for evolving sepsis
Type II AZ secondary to demand ischemia
Conditions prior to admission:
CHF unknown EF
CAD.
Cardiomyopathy
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
Severe aortic stenosis
End-stage renal disease on HD.
Right chest hemodialysis catheter.
Essential hypertension
Dyslipidemia
Plan:
Acute hypoxic respiratory failure.
Intubated on 04/07 in ED for severe respiratory distress and hypoxia
Chest x-ray with bilateral pulmonary edema and cardiomegaly.
Patient with history of CAD, suspected cardiomyopathy, severe aortic stenosis as well as end-stage renal disease.
Continue vent support.
Continue sedation with propofol
Hemodynamics/volume optimization with HD, attempt to wean off norepinephrine as tolerates..
Cardiovascular:
Pulmonary edema
Patient with suspected CAD and cardiomyopathy, severe aortic stenosis, hypertension
Echocardiogram pending.
Trend troponin
Requested medical records from recent hospitalization
Cardiology consultation
With hypotension hold metoprolol and Norvasc.
Concern for sepsis
Afebrile.
Noted with leukocytosis.
Abnormal urinalysis in patient with end-stage renal disease.
Follow blood cultures
Follow urine culture
Right chest HD catheter in place
Empiric antibiotics: Vancomycin/Zosyn
Trend lactic acid level
Anemia, suspect anemia of chronic disease
Trend hemoglobin
Full code
DVT prophylaxis: Heparin.
N.p.o.
Anticipated Discharge: > 48 hours
Subjective/Interval History
-
Date of Service: April 08, 2023
Objective Data
-
Labs:
Laboratory Results
04/08/23 04/08/23
00:26 05:05
WBC 21.8 H
Hgb 10.5 L
Hct 31.6 L
Plt Count 142 D
PT 18.4 H
INR 1.52
APTT 33.1
HCO3 15.9 L*
Sodium 136
Potassium 4.1
Chloride 100
Carbon Dioxide 21 L
BUN 24 H
Creatinine 3.5 H
Glucose 176 H
Calcium 8.5
Total Bilirubin 1.2
AST 156 H
ALT 82 H
Alkaline Phosphatase 104
Vital Signs:
Vital Signs
Temp Pulse Resp BP Pulse Ox
97.7 F 63 20 109/42 100
04/08/23 07:30 04/08/23 07:15 04/08/23 07:15 04/08/23 07:00 04/08/23 07:54
I&O
04/07/23 04/08/23 04/09/23
06:59 06:59 06:59
Intake Total 764.1 / 764.1
Balance 764.1 / 764.1
Physical Exam
-
General: Well Developed and No Apparent Distress
HEENT: Normocephalic, Atraumatic, Moist Mucous Membranes and Other (Intubated with clear ET tube secretions.)
Respiratory: Clear to Auscultation
Cardiac: Regular Rhythm and S1/S2; Negative Murmur, Rub or Gallop
GI: Soft, Nontender, Nondistended and Normal Bowel Sounds; Negative Organomegaly
Rectal: Deferred by Provider
Musculoskeletal: No Clubbing, No Cyanosis and No Edema
Skin: Negative Rash
Neuro: Sedated and Nonfocal/Grossly Intact
--- NOTE | 2023-04-08 10:00 | W.PN.NEPH.PH ---
Today's Communication / Plan
-
UF today
Assessment/Plan
-
IMP:
Acute Hypoxic respiratory failure
acute on chronic CHF exacerbation, unclear type
suspected Septic shock secondary to UTI/possible pneumonia
End-stage renal disease on hemodialysis-[facility]
Coronary artery disease-Unclear if she was CABG candidate or stent was not necessary
History of severe aortic stenosis
Essential hypertension
Hypercholesterolemia
Chronic anemia
PPM
Plan:
A/w pulm edema hypotension from [facility] after HD-VDRF
isolated UF today
titrate pressors to keep MAP>65
highly suspect that she has sig vascular burden with severe and hard to maintain hemodynamics on HD
will plan HD tomorrow
abx per primary, await cxxs
has tunneled catheter-ESRD status information is lacking since she never been to our system before
we really need GOC discussion with son
d/w ICU
-
-
Date of Service: April 08, 2023
CC / HPI / ROS
-
Chief Complaint:
ESRD
History of Present Illness:
remains on pressors, intubated FIo2 100% this am
no fever
Review of Systems:
sedated and intuabted
Labs
-
Labs:
WBC 21.8 10^3/uL (4.8-10.8) H 04/08/23 05:05
RBC 3.18 10^6/uL (4.20-5.40) L 04/08/23 05:05
Hgb 10.5 g/dL (12.0-16.0) L 04/08/23 05:05
Hct 31.6 % (37.0-47.0) L 04/08/23 05:05
Plt Count 142 10^3/uL (130-400) D 04/08/23 05:05
Sodium 136 mmol/L (135-145) 04/08/23 05:05
Potassium 4.1 mmol/L (3.5-5.1) 04/08/23 05:05
Chloride 100 mmol/L (98-107) 04/08/23 05:05
Carbon Dioxide 21 mmol/L (22-30) L 04/08/23 05:05
BUN 24 mg/dl (7-17) H 04/08/23 05:05
Creatinine 3.5 mg/dL (0.6-1.0) H 04/08/23 05:05
eGFR 12.67 04/08/23 05:05
Glucose 176 mg/dl (70-99) H 04/08/23 05:05
Calcium 8.5 mg/dl (8.4-10.2) 04/08/23 05:05
Dpm-O-Byatnmwsdaq Pept > 45053 pg/ml 04/07/23 20:02
Albumin 2.8 g/dl (3.5-5.0) L 04/08/23 05:05
Physical Exam
-
Vital Signs:
Vital Signs
Temp Pulse Resp BP Pulse Ox
97.7 F 63 20 109/42 100
04/08/23 07:30 04/08/23 07:15 04/08/23 07:15 04/08/23 07:00 04/08/23 10:27
Cardiovascular:: Regular rate and rhythm
Respiratory:: Bilateral: Coarse
Lung Excursion:: Abnormal
Abdomen:: Nontender and Soft
Extremity Edema:: None: Bilateral:
Barcenas Catheter: No
--- NOTE | 2023-04-08 10:21 | CON.CAR ---
Addendum entered and electronically signed by Williams Hill MD 04/08/23 11:52:
I saw and examined the patient.
The Manager Culinary's note was reviewed and I agree with the note.
Comment: Briefly, 82-year-old woman past medical history of end-stage renal disease on dialysis, heart failure, severe aortic stenosis, CAD and permanent pacemaker who presented with lethargy and was found to be hypoxic. She was intubated for
worsening respiratory distress. Currently intubated and sedated on pressors in the MICU.
Based on chest x-ray and elevated proBNP there is concern for decompensated heart failure
Also be being treated for severe sepsis given leukocytosis and lactic acidosis
Troponin rising from 1.2 -> 4.8 -> 8.5 would trend to peak
ECG is not overtly ischemic, but difficult to interpret given paced rhythm
Would treat for NSTEMI with ASA/statin and heparin gtt x48hrs - currently requiring pressors will hold on BB
Check echo
Attempt to obtain records from outside hospital as she reportedly had recent LHC
Volume management per nephrology via dialysis
Pacemaker check as A lead may be undersensing
Prognosis is guarded
Gen: NAD
HEENT: NC/AT, sclera anicteric
CV: RRR, late peaking ANA at the base with absent S2
Lungs: Mechanically ventilated
Abd: S/ND
Ext: No LE edema
Skin: Warm, dry
Neuro: Sedated
Original Note:
Consultation
Consultation Request
Date/Time Consultation Requested: 04/08/2023
Date/Time Consultation Performed: 04/08/2023 at 1022
Requesting Provider: Dr. Hill
Performing Provider: Dr. Kim
Reason for Consultation: CHF, severe
Medical History
-
History of Present Illness:
HPI: Usha is an 82 year old female with PMH of CAD, severe , chronic heart failure, PPM, HTN, HLD, and ESRD on HD who presented to [facility] for evaluation of lethargy. She was reportedly recently admitted at an outside hospital where she underwent
cardiac catheterization and was recommended PCI and TAVR which was not performed for unclear reasons. She has been at [facility] after this hospitalization, however came to ER as she was noted to be lethargic and hypoxic with cough. She was
unable to provide history given respiratory distress and ultimately required intubation overnight. Evaluation in ER revealed evidence of acute heart failure with pulmonary edema and moderate b/l pleural effusions on chest xray. proBNP >27,000.
Labwork also revealed suspected sepsis with leukocytosis, elevated lactic acid, and UA consistent with possible UTI. She was admitted for further workup and evaluation and cardiology was consulted.
PMH:
CAD
Severe
Chronic HF unknown EF
s/p PPM
HTN
HLD
ESRD on HD
Past Medical History
Past Medical History: Other (In HPI)
Social History
Tobacco: Non-Smoker
Alcohol: None
Drug: None
Living: Shelter
Family History
Family History: Reviewed & Not Pertinent
Allergies / Home Medications
Allergy/AdvReac Type Severity Reaction Status Date / Time
No Known Allergies Allergy Unverified 04/07/23 15:32
Medication Instructions Recorded Confirmed Type
acetaminophen 325 mg tablet 650 mg PO Q6HPRN PRN mild pain 04/07/23 04/07/23 History
(Tylenol)
amlodipine 10 mg tablet (Norvasc) 10 mg PO DAILY Gastrointestinal 04/07/23 04/07/23 History
Issue
atorvastatin 20 mg tablet (Lipitor) 20 mg PO HS High Cholesterol 04/07/23 04/07/23 History
bisacodyl 10 mg rectal suppository 10 mg DC DAILYPRN PRN constipation 04/07/23 04/07/23 History
(Dulcolax (bisacodyl))
guaifenesin 100 mg/5 mL oral 200 mg PO Q4HPRN PRN cough 04/07/23 04/07/23 History
liquid (Tangela-Tussin)
metoprolol succinate 25 mg 25 mg PO DAILY Blood Pressure 04/07/23 04/07/23 History
tablet,extended release 24 hr
(Toprol XL)
Review of Systems
-
Unable to obtain full review of systems at this time due to: Patient Intubation
Physical Exam
Vital Signs
Temp Pulse Resp BP Pulse Ox
97.7 F 63 20 109/42 100
04/08/23 07:30 04/08/23 07:15 04/08/23 07:15 04/08/23 07:00 04/08/23 10:01
Lab Results
04/08/23 05:05
04/08/23 05:05
Troponin I 4.780 ng/ml H* 04/08/23 05:05
Hzt-F-Hqbszhcolgj Pept > 12263 pg/ml 04/07/23 20:02
Impression / Plan
-
PCP: Dr. Taylor
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
Impression:
Acute hypoxic respiratory failure requiring intubation
Suspected septic shock
Acute on chronic HF unknown EF
Elevated troponin, NSTEMI vs Type II MT
Suspected sepsis, UTI
CAD
Severe
s/p PPM
HTN
HLD
ESRD on HD
Echo 04/08/2023: Study pending
Plan:
-Presented with lethargy and hypoxia. Admitted with acute heart failure, suspected UTI, and elevated troponin.
-Intubated overnight. Remains intubated and sedated.
-Volume management per nephro, on HD.
-Continue IV abx per primary service for suspected sepsis and possible UTI. Blood cultures, urine culture pending.
-Cardiology consulted given history of CAD and severe with reportedly recent cardiac catheterization.
-Patient reportedly recommended to have PCI and TAVR, however not performed for unclear reasons.
-Elevated troponin noted at 4.78, trending up. NSTEMI vs Type II MT in the setting of hypoxic respiratory failure, acute heart failure, ESRD, and sepsis.
-Continue to trend to peak. EKG V paced. Echo pending
-Records have been requested from recent hospitalization. Will need to review once obtained.
-BP stable on levo.
HPI: Usha is an 82 year old female with PMH of CAD, severe , chronic heart failure, PPM, HTN, HLD, and ESRD on HD who presented to [facility] for evaluation of lethargy. She was reportedly recently admitted at an outside hospital where she underwent
cardiac catheterization and was recommended PCI and TAVR which was not performed for unclear reasons. She has been at [facility] after this hospitalization, however came to ER as she was noted to be lethargic and hypoxic with cough. She was
unable to provide history given respiratory distress and ultimately required intubation overnight. Evaluation in ER revealed evidence of acute heart failure with pulmonary edema and moderate b/l pleural effusions on chest xray. proBNP >27,000.
Labwork also revealed suspected sepsis with leukocytosis, elevated lactic acid, and UA consistent with possible UTI. She was admitted for further workup and evaluation and cardiology was consulted.
Data Reviewed
-
EKG: Tracing Personally Visualized and interpreted
Radiology: Report Reviewed by me
Labs: Labs Reviewed by me
Old Records: Requested
[2023-04-08] MEDS: HEPARIN 5000 UNITS SC (10:44)
--- NOTE | 2023-04-08 10:44 | W.PN.NEPH.HD ---
Assessment
-
pt seen during isolated UF
Levo upto 20mcg
wean down O2 as able
HD again tomorrow
CVC functions well
Progress Note - Hemodialysis
-
Date of Service: April 08, 2023
Duration: 15 minutes and 2 hours
Opti-Dialyzer: 160
Ultrafiltration: Other (2-2.5lit)
Blood Flow: 400
Dialysate Flow: 600
Heparin: no
[2023-04-08] MEDS: SUBLIMAZE 100 IV (10:45)
--- NOTE | 2023-04-08 10:45 | PTCARENOTE ---
Attempted peripheral site twice in hopes of placing PICC over wire where existing midline is. IV team aware of that.
[2023-04-08] MEDS: HEPARIN 4000 UNITS INTRACATH (11:31)
--- NOTE | 2023-04-08 11:47 | PTCARENOTE ---
Dr. Coello TT's recent Troponin result of 8.45.
--- NOTE | 2023-04-08 12:11 | CM ---
CM following re: discharge planning.
Discussed in Rounds, reviewed pt's chart, met with pt and spoke to pt's son Lam over the phone.
Pt is an 82 year old female, admitted with primary dx of Acute hypoxic respiratory failure.Per Rounds meeting, pt intubated on 04/07 in ED for severe respiratory distress and hypoxia, remains intubated, HD treatment today and tomorrow, continue
supportive care.
Per son Lam, pt lives with him in a split level house in [place], 6 steps to enter and everything is on the 1st floor. Per son, pt ambulates with a walker and a cane at baseline, went to [facility] around 3 weeks ago and pt was placed to [facility] for a short term rehab. Per son, pt has been receiving HD treatment for the past 3 years, outpatient HD center is [facility]. Pt's son stated he visited his mother at [facility] and he liked there and he preferred pt
returns back to [facility] for a short term rehab. Pt's son expressed to me his very high emotional feelings regarding his mother condition especially pt being on ventilator, emotional support offered and provided, treatment plan in general
explained and pt's son expressed his understanding. Pt's son stated he is the only son and his mother is everything for him. Emotional support provided again and again.
CM spoke to [facility] senior storage administrator Luis Fernando and he confirmed that pt was at [facility] just a few days, was not able to participate in therapy due top weakness, no bed hold and pt will be accepted back when medically stable. An auth from
[employer] insurance requires.
D/C plan: return back to [facility] to continue on skilled services. An auth requires. Pt's son expressed his desire that his mother finally will be able return back home after the completion of a short term rehab at [facility].
CM will follow with discharge plan updates as hospitalization progresses
[2023-04-08] MEDS: LOW STRENGTH ASPIRIN 324 MG TUBE (12:21)
[2023-04-08] MEDS: LIPITOR 40 MG TUBE (12:21)
--- NOTE | 2023-04-08 12:21 | PTCARENOTE ---
Dr. Hill notified via TT that pt will be going to [facility] around 1:30PM, it is OK to wait to administer Heparin bolus and hang drip until return from [facility]. Aspirin will be administered via left Nare DHT
[2023-04-08] MEDS: PITRESSIN 100 IV ×2 (12:22→22:01)
--- NOTE | 2023-04-08 13:20 | VATNOTE ---
Attempted to place picc in left arm. Distal tip coiled in subclavian. Redirected picc several times unsuccessfully. Ir consulted.
--- NOTE | 2023-04-08 14:00 | PTCARENOTE ---
S/P Left PICC in [facility]. All tubing changed and drips infusing via left DL PICC purple port. Right upper arm midline flushed and patent. Awaiting tube feed recommendations from RD to initiate tube feeds. Repositioned for comfort. Doppler pedal pulses.
Skin to her feet improved with application of petroleum ointment this morning.
[2023-04-08] MEDS: HEPARIN 2900 UNITS IV (14:42)
[2023-04-08] MEDS: HEPARIN 25000 UNITS/250 ML IV (14:45)
[2023-04-08 14:51] LABS: Hematocrit 34.5 % (37.0-47.0); Hemoglobin 11.2 g/dL (12.0-16.0); Mean Corp Hgb Conc. 32.5 g/dL (33.0-37.0); Mean Corpuscular Hgb 32.5 pg (27.0-31.0); Red Blood Cell Count 3.45 10^6/uL (4.20-5.40); Red Cell Dist. Width 23.3 % (11.5-14.5); White Blood Cell Count 19.2 10^3/uL (4.8-10.8)
[2023-04-08 15:06] LABS: Lactic Acid 2.3 mmol/L (0.7-2.0)
--- NOTE | 2023-04-08 15:09 | WOUNDNOTE ---
[facility] RN NOTE: Reviewed chart and spoke to HORACIO Cheung. Patient with excoriated LE. Per Skye, legs were very dry but have since been cleaned and moisturized with Vaseline since admission to [facility]. Excoriations are currently scabbed and there are no open
wounds or drainage noted. Heels blanchable and barrier and adhesive foam applied. Patient intubated and unable to turn at time of assessment. Per chart review and discussion with RN, sacrum intact and covered with silicone border foam. Patient has
several comorbidities including ESRD. Wounds may worsen and new wounds may develop even with optimal care. Will confirm orders. RN updated. Careplan and discharge instructions updated. Will continue to follow as needed.
[2023-04-08 15:13] LABS: Platelet Count 98 10^3/uL (130-400)
[2023-04-08] MEDS: VANCOCIN HCL 500 MG 100 IV (15:34)
[2023-04-08] MEDS: LEVOPHED 258 MG IV (16:38)
[2023-04-08 16:39] LABS: Glucose - Point of Care 157 mg/dl (70-99)
--- NOTE | 2023-04-08 16:51 | PTCARENOTE ---
Double concentrated Norepinephrine replacing standard concentration. Verified with Dr. Noble to hold hourly water flushes via DHT.
--- NOTE | 2023-04-08 18:33 | PTCARENOTE ---
Nepro tube feed initiated at 10ml/hr, no water flush per nephrology.
[2023-04-08 18:47] LABS: Lactic Acid 1.9 mmol/L (0.7-2.0)
[2023-04-08 21:22] LABS: APTT 125.3 Sec (23.4-35.0)
--- NOTE | 2023-04-08 22:42 | PTCARENOTE ---
Rec'd care of patient from previous RN at shift change. Patient intubated and sedated. Opening eyes to stimuli. Pupils equal and sluggish; +2mm. Does not follow commands. Vpaced on tele monitor with BBB and prolonged QT interval. +Murmur. +Popliteal
pulses with doppler. B/l radial pulses weak to palpation. #8 ett @ 24 cm. Repositioned to the center. A/C 16/350/5/40%. Lung sounds coarse/rhonchi throughout. Crackles in b/l bases. +BS (hypo). TFs running through left nare DHT @ 10mL/hr. No flush.
Anuric. VSS. Levophed and Vaso infusing for BP support. Titrating Levo for MAP > 65. Fentanyl infusing at 25 mcg/hr. Heparin gtt titrated down to 500 units/hr at 2130 for PTT result fo 125.3. Next PTT due at 0330. Full assessment and care as charted
on worklist.
--- NOTE | 2023-04-08 23:59 | W.PN.UPDATE ---
Update Note
Progress Note Update
Procedure Note: Arterial Line�
� Right Wrist Arrow 20 (05/09)�
Diagnosis:��cardiogenic shock
IV Line Comments: Uneventful Procedure�
Mike's test completed pre-procedure: Yes�
A-Line Comments: Sterile technique as per standard protocol, Ultrasound guided insertion�
Functioning A-line in situ: Yes�
A-line Insertion Start Time:��2330
A-line in at:�2345�
[2023-04-09] VITALS (8 sets, daily range): BP systolic 100–133; BP diastolic 54–103; BMI 20.5
--- NOTE | 2023-04-09 00:29 | PTCARENOTE ---
Titrating down Levophed as collette. Right radial a-line placed by EAR NOSE THROAT SURGEON. Zeroed and transduced. Order for ABG placed. Assessment unchanged.
[2023-04-09 00:53] LABS: B.E. -5.9 mmol/L; HCO3 18.3 mmol/L (21-28); Ionized Calcium 1.04 mMOL/L (1.15-1.33); O2 Saturation % 97.8 % (94-98); PCO2 31 mmHg (32-35); PO2 112 mmHg (83-108); Potassium 4.2 mMOL/L (3.5-5.1); Sodium 129 mMOL/L (136-145); pH 7.38 (7.35-7.45)
[2023-04-09 01:02] LABS: O2 Therapy 40%
[2023-04-09] MEDS: CALCIUM CHLORIDE 10% SYRINGE 60 MG IV (01:52)
[2023-04-09] MEDS: ZOSYN 50 IV ×3 (01:52→18:05)
[2023-04-09 04:00] LABS: APTT 78.6 Sec (23.4-35.0)
[2023-04-09] MEDS: SUBLIMAZE 50 MCG IV ×2 (04:20→18:23)
--- NOTE | 2023-04-09 04:36 | PTCARENOTE ---
Systems reviewed; no changes. Levophed turned off at 0424. VSS. Patient biting on ett with oral care and repositioning of tube. Fentanyl bolus administered and bite block successfully placed. PTT assessment at 0330 therapeutic. Next PTT due at 0930.
[2023-04-09 06:11] LABS: Blood Urea Nitrogen 33 mg/dl (7-17); Calcium 8.6 mg/dl (8.4-10.2); Carbon Dioxide 18 mmol/L (22-30); Chloride 99 mmol/L (98-107); Estimated Creatinine Clearance 8 ml/min; Glucose 198 mg/dl (70-99); Potassium 3.8 mmol/L (3.5-5.1); Sodium 131 mmol/L (135-145); eGFR 11.12
[2023-04-09 06:32] LABS: % Basophils 0.1 % (0-2); % Eosinophils 0.2 % (0-6); % Lymphocytes 7.1 % (20.5-51.1); % Monocytes 4.9 % (1.7-9.3); % Neutrophils 86.7 % (42.2-75.2); Absolute Immature Granulocytes 0.1 10^3/uL (0-0.05); Absolute Lymphocytes 0.8 10^3/uL (1.2-3.4); Absolute Monocytes 0.6 10^3/uL (0.1-0.6); Absolute Neutrophils 9.8 10^3/uL (1.4-6.5); Hematocrit 27.1 % (37.0-47.0); Hemoglobin 9.2 g/dL (12.0-16.0); Mean Corp Hgb Conc. 33.9 g/dL (33.0-37.0); Mean Corpuscular Hgb 32.5 pg (27.0-31.0); Mean Corpuscular Volume 95.8 fL (81.0-99.0); Mean Platelet Volume 12.6 fL (7.4-10.4); Nucleated Red Blood Cells % 6.5 %; Platelet Count 77 10^3/uL (130-400); Red Blood Cell Count 2.83 10^6/uL (4.20-5.40); Red Cell Dist. Width 23.2 % (11.5-14.5); White Blood Cell Count 11.3 10^3/uL (4.8-10.8)
[2023-04-09] MEDS: PITRESSIN 100 IV ×2 (07:23→19:32)
[2023-04-09] MEDS: LOW STRENGTH ASPIRIN 81 MG TUBE (07:24)
[2023-04-09] MEDS: LEVOPHED 258 MG IV (07:25)
--- NOTE | 2023-04-09 07:30 | PTCARENOTE ---
Received pt intubated with fentanyl infusing @25mcg/hr via left upper arm DL PICC. Also through that she has Levophed 1mcg/min, & Vasopressin 0.03units/min. Other port flushed and patent. Right mid line flushed and patent. She opens her eyes to
verbal and light tactile stimuli. She was able to squeeze with her left hand and wiggle her toes when commanded. PERRLA 2. Feet are cold & mottled. Protective foam dressings to her heels intact. Heels elevated on pillows. Unable to obtain DP/PT
Doppler pulses. +popliteal pulses bilaterally by Doppler. Poor capillary refill. Weak radial pulses. Coarse breath sounds throughout worse on the left. Tolerating AC 16/350/.40/+5. #8 ETT secured 24cm right lip. Bite block intact. Hypoactive BSX4.
Left nare DHT with nepro @ 20ml/hr. No water flushes. Aspiration precautions maintained.
[2023-04-09] MEDS: FLEXBUMIN 25% FOR HEMODIALYSIS 12.5 GRAMS IV (08:31)
[2023-04-09] MEDS: MANNITOL 12.5 GRAMS IV ×2 (08:32→10:24)
--- NOTE | 2023-04-09 08:47 | W.PN.INTV ---
Today's Communication / Plan
Recommendations
MV
Sedation
Atbs
IV hep
HD
GOC discussions
Assessment
-
Assessment:
Mrs Usha Tapia is an 82/W adm 04-07 from [place] with lethargy and severe cough after HD on DOA, and POx 80-83% on RA prior to transfer. PMH: CAD, CHF, HTN, NIDDM, CKD on HD, , reported recent adm to OSH where she was recommended coronary stenting
and TAVR but patient refused (not accepted in transfer to [place] as was not a surgical candidate). On adm (first DH adm), hypoxemia, hypotension (received 1L NS at ER), developed pulmonary edema and worsening hypoxemia, intubated at ICU.
Impression:
Acute hypoxemic respiratory failure
Intubated at ICU 04-07
Pulmonary edema
Missed HD session 04-05 (last HD 04-03)
Suspected sepsis
Leukocytosis
Anemia
Thrombocytopenia
Metabolic/lactic acidosis
Elevated troponins and BNP: NSTEMI
Mild transaminitis
COVID/flu negative
Conditions SIDE PULLER:
CAD
CHF
PPM
HTN
NIDDM
CKD on HD
Reported recent adm to OSH where she was recommended coronary stenting and TAVR but patient refused
Plan:
Acute hypoxemic respiratory failure
Intubated at ICU 04-07
Pulmonary edema
Missed HD session 04-05
Last HD 04-07
Due to hypotension received 1U NS at ER
Continue ACV
Current settings: 16-350-5-0.4 (POx 100%)
Sedation/analgesia: fentanyl gtt
Will return to propofol after HD if hypotension improved
Daily sedation holiday for MS and SBT
Started inpatient HD 04-08, UF 2.5 L
R chest tunnelized HD cath
HD 04-09 ongoing: reported difficulty with UF due to hypotension
CXR post HD ordered
Continue pressor (NE) to assist HD and for suspected sepsis syndrome
Added vasopressin gtt
Keep MAP>=65
Holding outpatient a-HTN meds (amlodipine, metoprolol succinate XL)
Follow cxs: blood (so far negative), U (Ent sp)
MRSA screening positive
Added resp sec cxs 04-08: Staph aur
Empiric atbs on adm: vanco/zosyn, continue
NSTEMI
Known h/o CAD, reportedly declined coronary stenting, also h/o declining TAVR
Started IV heparin gtt, ASA
Limited vascular access
IV team could not place RUE PICC 04-07, but put midline cath
IV team placed LUE PICC 04-08 but tip coiled and could not be repositioned, [facility] repositioned PICC
DHT
Enteral feedings
RISS
Reportedly DNR/DNI at time of admission, now full code by son
Prognosis remains guarded
Continue GOC discussions
D/w MDT
Critical care time: 35 min
Diagnostic tests:
CXR 04-07-23: no previous films. pulm vasc congestion. R chest tunnelized HD cath. RUE midline cath.
CXR 04-08-23: interim intubation, pulm edema, small bilateral pleural effusions
Subjective Dataa
Subjective Data
Date of Service:
Date of Service: April 09, 2023
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
Subjective:
No major events reported overnight
On hemodialysis session this morning, required incremental doses of norepinephrine during hemodialysis
Continues on mechanical ventilation and fentanyl drip
Review of Systems
General: Unobtainable - Sedation
Objective Data
Data Reviewed
Vital Signs / I&O / Oxygen:
Vital Signs
Temp Pulse Resp BP Pulse Ox
99 F 70 16 110/66 100
04/09/23 07:30 04/09/23 08:30 04/09/23 08:30 04/09/23 07:29 04/09/23 08:30
Intake and Output
04/08/23 04/09/23 04/10/23
06:59 06:59 06:59
Intake Total 764.1 / 815.4 1534.5 / 1552.9 53.7 / 53.7
Balance 764.1 / 815.4 1534.5 / 1552.9 53.7 / 53.7
SaO2 [A/C] 100
SaO2 100
Nasal Cannula flow liters per 55
minute
Physical Exam
General: Respiratory Distress (n)
HEENT: Normocephalic
Cardiovascular: Regular Rhythm and Murmur (AV)
Respiratory: Clear, Non-Labored Respirations and Stridor (n)
GI: Soft and Non Distended
Neurology: Other (sedated)
Skin: Dry
Labs/Micro/Reports
Lab Data
04/09/23 05:24
04/09/23 05:24
Laboratory Results
04/08/23 04/08/23 04/09/23
14:36 20:46 00:40
APTT 45.0 H 125.3 H
pH 7.38
pCO2 31 L
pO2 112 H
HCO3 18.3 L
O2 Delivery Level 40%
04/09/23
03:30
APTT 78.6 H
pH
pCO2
pO2
HCO3
O2 Delivery Level
Microbiology
04/07/23 17:37 Blood/Venous Blood Culture - Preliminary
No Growth in 24 hours- Final report to follow
04/07/23 15:50 Blood/Venous Blood Culture - Preliminary
No Growth in 24 hours- Final report to follow
04/08/23 10:33 Tracheal Aspirate Gram Stain - Preliminary
04/07/23 17:36 Urine Urine Culture - Preliminary
Enterococcus species
04/07/23 15:50 Nasal Swab Influenza Types A & B (BRIAN) - Final
Negative for Influenza A & B, NAAT
Negative results must be combined with clinical observations
and patient history.
Nucleic Acid Amplification test (NAAT)performed on the
[employer] platform.
--- NOTE | 2023-04-09 09:42 | W.PN.NEPH.PH ---
Today's Communication / Plan
-
HD
Assessment/Plan
-
IMP:
Acute Hypoxic respiratory failure
acute on chronic CHF exacerbation, unclear type
suspected Septic shock secondary to UTI/possible pneumonia
End-stage renal disease on hemodialysis-[facility]
ischemic coronary artery disease
severe aortic stenosis
Essential hypertension now hypotension
Hypercholesterolemia
Chronic anemia
PPM
Plan:
-HD today
-unable to remove volume easily given hypotension and severe
-fortunately CXR without overt pulmonary edema/improved from admission
-await records from OSH to determine cardiac plan
-keep MAP>65 with pressors
-critical care time 31 minutes
-
-
Date of Service: April 09, 2023
CC / HPI / ROS
-
Chief Complaint:
ESRD
History of Present Illness:
remains on pressors, intubated FIo2 40% this am
no fever
sedated
tolerated UF yesterday
critically ill in ICU
Review of Systems:
sedated and intubated
Labs
-
Labs:
WBC 11.3 10^3/uL (4.8-10.8) H 04/09/23 05:24
RBC 2.83 10^6/uL (4.20-5.40) L 04/09/23 05:24
Hgb 9.2 g/dL (12.0-16.0) L 04/09/23 05:24
Hct 27.1 % (37.0-47.0) L 04/09/23 05:24
Plt Count 77 10^3/uL (130-400) L D 04/09/23 05:24
Sodium 131 mmol/L (135-145) L 04/09/23 05:24
Potassium 3.8 mmol/L (3.5-5.1) 04/09/23 05:24
Chloride 99 mmol/L (98-107) 04/09/23 05:24
Carbon Dioxide 18 mmol/L (22-30) L 04/09/23 05:24
BUN 33 mg/dl (7-17) H 04/09/23 05:24
Creatinine 3.9 mg/dL (0.6-1.0) H 04/09/23 05:24
eGFR 11.12 04/09/23 05:24
Glucose 198 mg/dl (70-99) H 04/09/23 05:24
Calcium 8.6 mg/dl (8.4-10.2) 04/09/23 05:24
Ive-N-Xiojnelgfjo Pept > 55814 pg/ml 04/07/23 20:02
Albumin 2.8 g/dl (3.5-5.0) L 04/08/23 05:05
Physical Exam
-
Vital Signs:
Vital Signs
Temp Pulse Resp BP Pulse Ox
99 F 70 16 110/66 100
04/09/23 07:30 04/09/23 08:30 04/09/23 08:30 04/09/23 07:29 04/09/23 08:30
Cardiovascular:: Regular rate and rhythm
Respiratory:: Bilateral: Coarse
Lung Excursion:: Normal
Abdomen:: Nontender and Soft
Bowel Sounds:: Normal
Extremity Edema:: None: Bilateral:
--- NOTE | 2023-04-09 09:47 | W.PN.NEPH.HD ---
Assessment
-
Seen on HD. on pressors, VSS, access ok. unable to UF much due to hypotension
Progress Note - Hemodialysis
-
Date of Service: April 09, 2023
Duration: 30 minutes and 3 hours
Potassium Bath: 3
Calcium Bath: 2.5
Opti-Dialyzer: 160
Ultrafiltration: Other (1kg)
Blood Flow: 400
Dialysate Flow: 600
Heparin: 500x2
EPO: no
[2023-04-09 10:01] LABS: APTT 75.7 Sec (23.4-35.0)
[2023-04-09 10:02] LABS: Vancomycin Random 12.4 ug/ml
--- NOTE | 2023-04-09 10:10 | PHA.VAN.FU ---
Vancomycin Assessment / Plan
- Assessment
Hemodialysis Schedule: MWF
Last Hemodialysis performed: sunday 04/09 ( pt recd supplemental HD 04/08)
WBC's are: Trending Down
In the past 24 hrs, patient has been: Afebrile
Concomitant Antimicrobials: piperacillin/tazobactam
- Assessment - Therapeutic Drug Monitoring
Random Level: 12.4 - preHD today
- Dosing Plan
Continue: dose by level HD days
Dosing by Level: Re-dose today (500 mg x 1 post HD)
- Monitoring Plan
Random Level: random level orderd Wednesday AM to ensure pt remains therapeutic thru weekend
- Follow Up
Pharmacy will continue to follow.
Vancomycin Follow UP
- -
Patient Age: 82
Patient Sex: Female
Vancomycin Day #: 3
Indication: Pulmonary/Respiratory
Requesting Provider: Dr. Kim
Pertinent Antimicrobial Allergies:
NKDA
Height / Weight:
Height 5 ft
Actual Weight 47.5 kg
Pertinent Past Medical History: ESRD on HD MWF
- Vital Signs / Lab Results
Temp Pulse Resp BP Pulse Ox
99 F 70 16 110/66 100
04/09/23 07:30 04/09/23 08:30 04/09/23 08:30 04/09/23 07:29 04/09/23 08:30
Lab Results - Hematology
04/07/23 04/08/23 04/08/23
15:36 05:05 14:36
WBC 10.2 21.8 H 19.2 H
04/09/23
05:24
WBC 11.3 H
Lab Results - Chemistry
04/07/23 04/07/23 04/08/23
15:36 17:37 05:05
BUN Cancelled 16 24 H
Creatinine Cancelled 2.9 H 3.5 H
Estimated Creat Clear Cancelled 11 9
Albumin Cancelled 3.0 L 2.8 L
04/09/23
05:24
BUN 33 H
Creatinine 3.9 H
Estimated Creat Clear 8
Albumin
04/07/23 04/07/23 04/08/23
15:50 20:02 05:05
Lactic Acid 3.4 H 6.1 H* 3.9 H
04/08/23 04/08/23 04/08/23
10:30 14:36 18:20
Lactic Acid 3.0 H 2.3 H 1.9
Lab Results - Urine
04/07/23
17:36
Urine Nitrite (Reflex) Negative
Leukocyte Esterase Rfl 2+ A
Ur Squamous Epith Cells 0-2
Microbiology Results
04/08/23 10:33 Respiratory Culture - Preliminary
Tracheal Aspirate Staphylococcus aureus
Gram Stain - Preliminary
04/08/23 05:05 MRSA Screen - Final
Nose Staph aureus MRSA
04/07/23 17:37 Blood Culture - Preliminary
Blood/Venous No Growth in 24 hours- Final report to follow
04/07/23 15:50 Blood Culture - Preliminary
Blood/Venous No Growth in 24 hours- Final report to follow
04/07/23 17:36 Urine Culture - Preliminary
Urine Enterococcus species
04/07/23 15:50 Influenza Types A & B (BRIAN) - Final
Nasal Swab Negative for Influenza A & B, NAAT
Negative results must be combined with clinical observations
and patient history.
Nucleic Acid Amplification test (NAAT)performed on the
[email or web address] platform.
Therapeutic Drug Monitoring
Random Vancomycin 12.4 ug/ml 04/09/23 09:30
[2023-04-09] MEDS: HEPARIN 3500 UNITS INTRACATH (11:09)
[2023-04-09] MEDS: NOVOLOG FLEXPEN-LOW RESISTANCE SC (11:56)
[2023-04-09 12:04] LABS: Glucose - Point of Care 114 mg/dl (70-99)
--- NOTE | 2023-04-09 12:04 | PTCARENOTE ---
Clarified the plan of care to stop fentanyl drip and start Propofol to wean off ventilator.
[2023-04-09] MEDS: DIPRIVAN 100 IV (12:10)
--- NOTE | 2023-04-09 12:35 | CM ---
CM following re: discharge planning.
Discussed in Rounds, reviewed pt's chart, met with pt, spoke to pt's son Lam and pt's sister Nancy over the phone [phone]. per Rounds meeting, pt remains intubated, on ventilator, continue supportive care. Ethics committee request noted.
CM spoke to pt's son Lam over the phone to invite him for a family meeting to discuss pt's current health condition and to discuss a plan of care. pt's son stated he will not be able to come to the hospital till Wednesday and pt's son stated he gave
our team his permission to discuss pt's plan of care with his aunt Nancy. Pt's son expressed his overwhelming feelings, was very nice talking on the phone and made a strong request to talk to his aunt /pt's sister Nancy.
CM spoke to pt's sister Nancy and she stated she will come to the hospital tomorrow, she has no idea what is going on with the pt and she stated she understands that pt's son is very overwhelmed and that's why she will step in to discuss a plan of
care to the pt and she will coordinate it with pt's son.
D/C plan: uncertain at this time. Meeting with pt's sister Nancy tomorrow to discuss a plan of care/goals of care.
CM will follow with discharge plan updates as hospitalization progresses
[2023-04-09] MEDS: VANCOCIN HCL 500 MG 100 IV (13:24)
--- NOTE | 2023-04-09 13:30 | W.PN.CARDCBS ---
Today's Communication / Plan
-
She has had MA with ejection fraction of 25% and critical aortic stenosis
She declined treatment on recent hospitalization
Continue IV heparin for another 24 hours then stop
Dialysis for volume control
Try to wean Levophed off
Comfort care/conservative treatment may be appropriate
Impression / Plan
-
PCP: Dr. Taylor
Horticulture Instructor: Unknown
Impression:
Acute hypoxic respiratory failure requiring intubation
Suspected septic shock
Acute on chronic HF unknown EF
NSTEMI with peak troponin of 8.5
Suspected sepsis, UTI
CAD
Severe
s/p PPM
HTN
HLD
ESRD on HD
Echo 04/08/2023: Ejection fraction 25%, septal akinesis, anterior and inferior acuna are severely hypokinetic mild concentric LVH, severe MR, severe AAS with mean gradient of 71 mmHg and arnav of 0.2 cm�
Plan:
Remains intubated and sedated.
Nephrology attempting to diurese with dialysis
Remains on Levophed and will try to wean off
Unable to give beta-rochelle with hypotension requiring pressors
Continue aspirin via tube
She had declined PCI and TAVR are on recent hospitalization
Will continue IV heparin for another 24 hours but overall prognosis is very poor and not a Public Works Director candidate at the present time
We need to review prior records but conservative/comfort care might be appropriate
HPI: Usha is an 82 year old female with PMH of CAD, severe , chronic heart failure, PPM, HTN, HLD, and ESRD on HD who presented to [facility] for evaluation of lethargy. She was reportedly recently admitted at an outside hospital where she underwent
cardiac catheterization and was recommended PCI and TAVR which was not performed for unclear reasons. She has been at [facility] after this hospitalization, however came to ER as she was noted to be lethargic and hypoxic with cough. She was
unable to provide history given respiratory distress and ultimately required intubation overnight. Evaluation in ER revealed evidence of acute heart failure with pulmonary edema and moderate b/l pleural effusions on chest xray. proBNP >27,000.
Labwork also revealed suspected sepsis with leukocytosis, elevated lactic acid, and UA consistent with possible UTI. She was admitted for further workup and evaluation and cardiology was consulted.
Progress Note - Horticulture Instructor
Subjective
Date of Service: April 09, 2023
No complaints
Objective
Labs:
04/09/23 05:24
04/09/23 05:24
Labs
Hgb 9.2 g/dL (12.0-16.0) L 04/09/23 05:24
Hct 27.1 % (37.0-47.0) L 04/09/23 05:24
Plt Count 77 10^3/uL (130-400) L D 04/09/23 05:24
PT 18.4 Sec (11.4-14.6) H 04/08/23 05:05
INR 1.52 04/08/23 05:05
APTT 75.7 Sec (23.4-35.0) H 04/09/23 09:30
Sodium 131 mmol/L (135-145) L 04/09/23 05:24
Potassium 3.8 mmol/L (3.5-5.1) 04/09/23 05:24
BUN 33 mg/dl (7-17) H 04/09/23 05:24
Creatinine 3.9 mg/dL (0.6-1.0) H 04/09/23 05:24
Glucose 198 mg/dl (70-99) H 04/09/23 05:24
Troponins
04/07/23 04/08/23 04/08/23
20:02 05:05 10:30
Troponin I 1.150 H* 4.780 H* 8.450 H* D
04/08/23
16:57
Troponin I 7.490 H*
Vital Signs and I&O:
Vital Signs
Temp Pulse Resp BP Pulse Ox
98.3 F 64 16 133/103 100
04/09/23 11:10 04/09/23 13:15 04/09/23 13:15 04/09/23 11:41 04/09/23 13:15
Vital Signs
Temp Pulse Resp BP Pulse Ox
98.3 F 64 16 133/103 100
04/09/23 11:10 04/09/23 13:15 04/09/23 13:15 04/09/23 11:41 04/09/23 13:15
Intake & Output
04/07/23 04/08/23 04/09/23 04/10/23
06:59 06:59 06:59 06:59
Intake Total 764.1 / 815.4 1534.5 / 1572.9 569.6 / 569.6
Balance 764.1 / 815.4 1534.5 / 1572.9 569.6 / 569.6
Physical Exam
Physical Exam
General: Awake but confused on the ventilator, appears chronically
Neck: Supple, no JVD, HJR, carotids +2 B/L, no bruits bilaterally.
Heart: Non displaced PMI, RRR, 2/6 basal systolic murmur, No S3, S4, no rubs.
Lungs: Scattered rhonchi
Extremities: No clubbing, cyanosis or edema bilaterally.
Neuro: Awake but confused
--- NOTE | 2023-04-09 13:55 | PN.CDI ---
Addendum entered and electronically signed by Willem Dill MD 04/13/23 16:45:
No additional comments. Please refer to the progress note.
Original Note:
CDI
- -
CDI:
Physician Documentation Request
Admit Date: 04/07/23 20:52
Dear Doctor Aniyah,
Patient admitted for acute on chronic CHF.
04/08 Hospitalist PN: 'Shock with severe hypotension requiring IV pressors, suspect cardiogenic...Concern for evolving sepsis'
04/08 Cardiology Consult: 'Also be being treated for severe sepsis given leukocytosis and lactic acidosis...Suspected septic shock'
Due to conflicting documentation, please clarify which of the following is the most likely etiology of the above symptoms and treatment rendered:
Septic shock
Cardiogenic shock
Other
Use of terms such as suspected, likely, concern for, or probable (associated with a specific diagnosis that is being evaluated, monitored, or treated as if it exists) are acceptable and can be coded in the inpatient setting, when documented at the
time of discharge.
Thank you,
Tara Glass RN, BSN
CDI Specialist
Available via [place] text
Please use your independent medical judgment in providing your response.
--- NOTE | 2023-04-09 15:15 | PTCARENOTE ---
PM care performed. CHG bath given. Incontinent for soft to loose yellow BM. Cleansed., repositioned. Moist cough for thick campos secretions.
--- NOTE | 2023-04-09 16:23 | CHAP ---
Ethics consult received. Spoke with Skye (Nurse), Roslyn Altman (Risk), Guillermo (Case Management). Family expected in over the weekend (sister on Wednesday, son on Wednesday). Also saw on fpc paperwork here in the chart that perhaps Ms. Tapia
is a DNR/DNI, but the paperwork is ambiguous, so I [facility] asking for clarification. Have not heard back. Will follow on Wednesday. assembler utility buildings aware of potential family visiting so she can
provide emotional and spiritual support as they face decisions.
--- NOTE | 2023-04-09 16:32 | W.PN.HOSP.TC ---
Today's Communication/Plan
-
Vent support
Continue sedation
Vasopressors currently on Levophed and vasopressin
Hemodialysis while on vasopressors
Continue antibiotics for another 24 to 48 hours pending cultures.
Poor candidate for any cardiovascular intervention.
Pending goals of care discussion with family.
Remains full code.
Discussed with nursing
Discussed with machinery mechanic
Total Critical Care Time_55____ minutes. I was immediately available to the patient and staff. I personally examined, reviewed labs, diagnostic images/reports, interpretations, treatment plans, discussed patient care with other providers and
family or caregivers (if patient is unable to make decisions), entered orders as appropriate and documented the medical record.
Assessment / Plan
Assessment / Plan
Impression:
Acute hypoxic respiratory failure.
Acute CHF reduced EF
Non-STEMI with peak troponin 8.5
Acute pulmonary edema
Shock with severe hypotension requiring IV pressors, suspect cardiogenic
Lactic acidosis
Concern for evolving sepsis
Type II [place] secondary to demand ischemia
Conditions prior to admission:
CHF unknown EF
CAD.
Cardiomyopathy
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
Severe aortic stenosis
End-stage renal disease on HD.
Right chest hemodialysis catheter.
Essential hypertension
Dyslipidemia
Plan:
Acute hypoxic respiratory failure.
Intubated on 04/07 in ED for severe respiratory distress and hypoxia
Chest x-ray with bilateral pulmonary edema and cardiomegaly.
Patient with history of CAD, suspected cardiomyopathy, severe aortic stenosis as well as end-stage renal disease.
Continue vent support.
Continue sedation with propofol
Hemodynamics/volume optimization with HD, attempt to wean off norepinephrine as tolerates..
Cardiovascular:
Acute CHF reduced EF.
Non-STEMI with peak troponin 8.5
Pulmonary edema
Patient with suspected CAD and cardiomyopathy, severe aortic stenosis, hypertension
Echocardiogram with severely reduced LVEF at 25% and critical aortic stenosis
Requested medical records from recent hospitalization
With hypotension hold metoprolol and Norvasc.
Concern for sepsis
Afebrile.
Noted with leukocytosis.
Abnormal urinalysis in patient with end-stage renal disease.
Follow blood cultures
Follow urine culture
Right chest HD catheter in place
Empiric antibiotics: Vancomycin/Zosyn
Trend lactic acid level
Anemia, suspect anemia of chronic disease
Trend hemoglobin
Full code
DVT prophylaxis: Heparin.
N.p.o.
Anticipated Discharge: > 48 hours
Subjective/Interval History
-
Date of Service: April 09, 2023
Objective Data
-
Labs:
Laboratory Results
04/09/23 04/09/23 04/09/23
05:24 09:30 16:00
WBC 11.3 H
Hgb 9.2 L
Hct 27.1 L
Plt Count 77 L D
APTT 75.7 H Pending
Sodium 131 L
Potassium 3.8
Chloride 99
Carbon Dioxide 18 L
BUN 33 H
Creatinine 3.9 H
Glucose 198 H
Calcium 8.6
Vital Signs:
Vital Signs
Temp Pulse Resp BP Pulse Ox
100 F 65 16 133/103 100
04/09/23 15:46 04/09/23 15:45 04/09/23 15:45 04/09/23 11:41 04/09/23 15:46
I&O
04/08/23 04/09/23 04/10/23
06:59 06:59 06:59
Intake Total 764.1 / 815.4 1534.5 / 1572.9 660.8 / 660.8
Balance 764.1 / 815.4 1534.5 / 1572.9 660.8 / 660.8
Physical Exam
-
General: Well Developed and No Apparent Distress
HEENT: Normocephalic, Atraumatic and Moist Mucous Membranes
Respiratory: Decreased Breath Sounds
Cardiac: Regular Rhythm and S1/S2; Negative Murmur, Rub or Gallop
GI: Soft, Nontender, Nondistended and Normal Bowel Sounds; Negative Organomegaly
Rectal: Deferred by Provider
Musculoskeletal: No Clubbing, No Cyanosis and No Edema
Skin: Negative Rash
Neuro: Sedated and Nonfocal/Grossly Intact
[2023-04-09] MEDS: NOVOLOG FLEXPEN-LOW RESISTANCE 1 UNITS SC ×2 (17:59→23:47)
[2023-04-09 18:05] LABS: APTT 62.9 Sec (23.4-35.0)
[2023-04-09] MEDS: LIPITOR 40 MG TUBE (18:05)
[2023-04-09 18:08] LABS: Glucose - Point of Care 171 mg/dl (70-99)
--- NOTE | 2023-04-09 20:00 | PTCARENOTE ---
Patient received in bed, intubated and sedated on Propofol. Does not follow commands, will bite down on tube when providing mouth care. 100% Vpaced on monitor, low grade temp, blood pressure as documented. No edema noted, bilateral popliteal
pulses present by doppler. #8 ETT at 24 cm, tolerating vent settings of A/C 16 TV 350 FIO2 40% Peep 5, lungs coarse bilaterally, suctioned for thick campos secretions. DHT in left nare with Nepro infusing at 25 ml/hr, residual noted. Abdomen soft
with hypoactive bowel sounds. Incontinent of loose stool. Anuric. Right upper arm midline flushed and patent..LDL PICC with Propofol, Levophed and Vasopressin infusing as documented. Right radial transduced and zeroed. CHG bath given, turned
and repositioned
[2023-04-09 23:56] LABS: Glucose - Point of Care 166 mg/dl (70-99)
--- NOTE | 2023-04-10 | PTCARENOTE ---
Patient reassessed, Propofol increased for RASS, turned and repositioned. No other changes in assessment
[2023-04-10] MEDS: LEVOPHED 258 MG IV ×2 (00:16→22:13)
[2023-04-10 00:57] LABS: APTT 98.2 Sec (23.4-35.0)
[2023-04-10] MEDS: ZOSYN 50 IV ×3 (02:06→17:08)
--- NOTE | 2023-04-10 04:22 | PTCARENOTE ---
Patient reassessed, no changes in assessment, turned and repositioned, labs sent
[2023-04-10 04:27] LABS: B.E. 0.6 mmol/L; HCO3 23.4 mmol/L (21-28); O2 Saturation % 98.1 % (94-98); PCO2 30 mmHg (32-35); PO2 148 mmHg (83-108); Potassium 3.4 mMOL/L (3.5-5.1); Sodium 129 mMOL/L (136-145)
[2023-04-10 04:41] LABS: % Basophils 0.2 % (0-2); % Eosinophils 0.1 % (0-6); % Lymphocytes 5.8 % (20.5-51.1); % Monocytes 3.6 % (1.7-9.3); % Neutrophils 89.3 % (42.2-75.2); Absolute Immature Granulocytes 0.2 10^3/uL (0-0.05); Absolute Lymphocytes 1.1 10^3/uL (1.2-3.4); Absolute Monocytes 0.7 10^3/uL (0.1-0.6); Absolute Neutrophils 17.6 10^3/uL (1.4-6.5); Hemoglobin 8.9 g/dL (12.0-16.0); Mean Corp Hgb Conc. 34.2 g/dL (33.0-37.0); Mean Corpuscular Hgb 32.6 pg (27.0-31.0); Mean Corpuscular Volume 95.2 fL (81.0-99.0); Nucleated Red Blood Cells % 1.4 %; Platelet Count 75 10^3/uL (130-400); Red Blood Cell Count 2.73 10^6/uL (4.20-5.40); White Blood Cell Count 19.6 10^3/uL (4.8-10.8)
[2023-04-10 05:06] LABS: Blood Urea Nitrogen 19 mg/dl (7-17); Calcium 7.9 mg/dl (8.4-10.2); Carbon Dioxide 23 mmol/L (22-30); Chloride 97 mmol/L (98-107); Estimated Creatinine Clearance 13 ml/min; Glucose 261 mg/dl (70-99); Potassium 3.6 mmol/L (3.5-5.1); Sodium 128 mmol/L (135-145); Triglycerides 112 mg/dl (10-149); eGFR 18.97
[2023-04-10] MEDS: NOVOLOG FLEXPEN-MODERATE RESISTANCE 5 UNITS SC (05:50)
[2023-04-10] MEDS: DIPRIVAN 100 IV ×2 (05:50→17:08)
[2023-04-10] MEDS: PITRESSIN 100 IV ×2 (05:50→17:08)
[2023-04-10 06:00] VITALS: BMI 20.8
[2023-04-10] MEDS: HEPARIN 25000 UNITS/250 ML IV (06:14)
[2023-04-10] MEDS: CALCIUM CHLORIDE 10% SYRINGE 60 MG IV (06:32)
[2023-04-10 07:30] LABS: APTT 99.4 Sec (23.4-35.0)
--- NOTE | 2023-04-10 07:45 | PTCARENOTE ---
Addendum entered by Ivania Mejia RN 04/10/23 10:46:
Popliteal (not DP) by doppler.
Original Note:
Assumed care of patient. Pupils/2 and sluggish. Makes no purposeful movements...unrestrained. Does not follow commands. Occasionally grimaces. S1 S2 reg w/ + murmur...v-paced on monitor. +DP's by doppler...no edema. #8 ETT 24cm center
lip...current vent settings: AC 14/350/+5/40%...sats 100%. Lungs diminished w/ coarse crackles posteriorly throughout L>R. Suctioned via ETT for scant blood tinged clear sputum. Oral care done. Abdomen round...+BS. Left nare dhf w/ nepro @
25ml/hr...no water flushes. Incontinent small liquid brown BM. Anuric. Skin pale....intact optifoam...applied for protection. Right chest HD cath. Right radial lisa...correlates w/ manual cuff. Right midline capped. Left DL PICC w/ heparin,
levophed (double concentrated), vasopressin, and propofol gtts infusing...see interventions. VS documented. Will continue to monitor closely.
[2023-04-10] MEDS: LOW STRENGTH ASPIRIN 81 MG TUBE (08:20)
--- NOTE | 2023-04-10 08:53 | W.PN.INTV ---
Today's Communication / Plan
Recommendations
MV
Atbs
Pressor
HD
GOC
Assessment
-
Assessment:
Mrs Usha Tapia is an 82/W [place] 04[place]07 [place] with lethargy and severe cough after HD on DOA, and POx 80-83% on RA prior to transfer. PMH: CAD, CHF, HTN, NIDDM, CKD on HD, , reported recent adm to OSH where she was recommended coronary stenting
and TAVR but patient refused (not accepted in transfer to [facility] as was not a surgical candidate). On adm (first DH adm), hypoxemia, hypotension (received 1L NS at ER), developed pulmonary edema and worsening hypoxemia, intubated at ICU.
Impression:
Acute hypoxemic respiratory failure
Intubated at ICU 04-07
Pulmonary edema
Missed HD session 04-05 (last HD 04-03)
Suspected sepsis
Leukocytosis
Anemia
Thrombocytopenia
Metabolic/lactic acidosis
Elevated troponins and BNP: NSTEMI
Mild transaminitis
COVID/flu negative
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
CAD
CHF
PPM
HTN
NIDDM
CKD on HD
Reported recent adm to OSH where she was recommended coronary stenting and TAVR but patient refused
Plan:
Acute hypoxemic respiratory failure
Intubated at ICU 04-07
Pulmonary edema
Missed HD session 04-05
Last HD 04-07
Due to hypotension received 1U NS at ER
Continue ACV
Current settings: 16-350-5-0.4 (POx 100%)
Sedation/analgesia: propofol/fentanyl gtt
Daily sedation holiday for MS and SBT
Started inpatient HD 04-08, UF 2.5 L
R chest tunnelized HD cath
HD 04-09 ongoing: reported difficulty with UF due to hypotension
CXR post HD 04-09 with recurrent pulm edema pattern
Noted that due to hypotension and , volume removal with HD has been marginal
Continue pressor (NE)
Added vasopressin gtt
Keep MAP>=65
Holding outpatient a-HTN meds (amlodipine, metoprolol succinate XL)
Follow cxs: blood (so far negative), U (Ent sp)
MRSA screening positive
Added resp sec cxs 04-08: MRSA
Empiric atbs on adm: vanco/zosyn, continue
NSTEMI
Known h/o CAD, reportedly declined coronary stenting, also h/o declining TAVR
Started IV heparin gtt, ASA
Limited vascular access
IV team could not place RUE PICC 04-07, but put midline cath
IV team placed LUE PICC 04-08 but tip coiled and could not be repositioned, IRad repositioned PICC
DHT
Enteral feedings
RISS
Reportedly DNR/DNI at time of admission, now full code by son
Pending records from [facility]
Prognosis remains guarded
Continue GOC discussions
Critical care time: 35 min
Diagnostic tests:
CXR 04-07-23: no previous films. pulm vasc congestion. R chest tunnelized HD cath. RUE midline cath.
CXR 04-08-23: interim intubation, pulm edema, small bilateral pleural effusions
Subjective Dataa
Subjective Data
Date of Service:
Date of Service: April 10, 2023
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
Subjective:
No major events reported overnight
Continues on mechanical ventilation
So far, unable to remove volume easily given hypotension and severe as reported by nephrology
Review of Systems
General: Unobtainable - Sedation
Objective Data
Data Reviewed
Vital Signs / I&O / Oxygen:
Vital Signs
Temp Pulse Resp BP Pulse Ox
100.1 F 63 16 133/103 100
02/03/24 07:27 04/10/23 04:00 04/10/23 04:00 04/09/23 11:41 04/10/23 08:00
Intake and Output
04/09/23 04/10/23 04/11/23
06:59 06:59 06:59
Intake Total 1534.5 / 1572.9 1484.5 / 1541.1 173.2 / 173.2
Balance 1534.5 / 1572.9 1484.5 / 1541.1 173.2 / 173.2
SaO2 [A/C] 100
SaO2 98
Nasal Cannula flow liters per 55
minute
Physical Exam
General: Respiratory Distress (n)
HEENT: Normocephalic and Moist Mucous Membranes
Cardiovascular: Regular Rhythm and Murmur (AV)
Respiratory: Clear, Non-Labored Respirations and Stridor (n)
GI: Soft and Non Distended
Neurology: Other (sedated)
Skin: Dry
Labs/Micro/Reports
Lab Data
04/10/23 04:19
04/10/23 04:19
Laboratory Results
04/09/23 04/09/23 04/10/23
09:30 17:44 00:37
APTT 75.7 H 62.9 H 98.2 H
pH
pCO2
pO2
HCO3
O2 Delivery Level
04/10/23 04/10/23
04:19 07:06
APTT 99.4 H
pH 7.50 H
pCO2 30 L
pO2 148 H
HCO3 23.4
O2 Delivery Level
Microbiology
04/08/23 10:33 Tracheal Aspirate Respiratory Culture - Preliminary
Staphylococcus aureus
04/08/23 10:33 Tracheal Aspirate Gram Stain - Preliminary
04/07/23 17:37 Blood/Venous Blood Culture - Preliminary
No Growth in 48 hours- Final report to follow
04/07/23 15:50 Blood/Venous Blood Culture - Preliminary
No Growth in 48 hours- Final report to follow
04/07/23 17:36 Urine Urine Culture - Final
Enterococcus faecalis
04/08/23 05:05 Nose MRSA Screen - Final
Staph aureus MRSA
04/07/23 15:50 Nasal Swab Influenza Types A & B (BRIAN) - Final
Negative for Influenza A & B, NAAT
Negative results must be combined with clinical observations
and patient history.
Nucleic Acid Amplification test (NAAT)performed on the
[employer] platform.
--- NOTE | 2023-04-10 09:21 | W.PN.NEPH.PH ---
Today's Communication / Plan
-
await records
Assessment/Plan
-
IMP:
Acute Hypoxic respiratory failure
acute on chronic CHF exacerbation, unclear type
suspected Septic shock secondary to UTI/possible pneumonia
End-stage renal disease on hemodialysis-[facility]
ischemic coronary artery disease
severe aortic stenosis
Essential hypertension now hypotension
Hypercholesterolemia
Chronic anemia
PPM
Plan:
-HD wednesday
-unable to remove volume easily given hypotension and severe
-await records from OSH to determine cardiac plan
-keep MAP>65 with pressors
-prognosis is poor
-critical care time 31 minutes
-
-
Date of Service: April 10, 2023
CC / HPI / ROS
-
Chief Complaint:
ESRD
History of Present Illness:
remains on pressors, intubated FIo2 40% this am
no fever
WBC remains elevated
no issues with HD yesterday
critically ill in ICU
Review of Systems:
sedated and intubated
Labs
-
Labs:
WBC 19.6 10^3/uL (4.8-10.8) H 04/10/23 04:19
RBC 2.73 10^6/uL (4.20-5.40) L 04/10/23 04:19
Hgb 8.9 g/dL (12.0-16.0) L 04/10/23 04:19
Hct 26.0 % (37.0-47.0) L 04/10/23 04:19
Plt Count 75 10^3/uL (130-400) L 04/10/23 04:19
Sodium 128 mmol/L (135-145) L 04/10/23 04:19
Potassium 3.6 mmol/L (3.5-5.1) 04/10/23 04:19
Chloride 97 mmol/L (98-107) L 04/10/23 04:19
Carbon Dioxide 23 mmol/L (22-30) 04/10/23 04:19
BUN 19 mg/dl (7-17) H 04/10/23 04:19
Creatinine 2.5 mg/dL (0.6-1.0) H 04/10/23 04:19
eGFR 18.97 04/10/23 04:19
Glucose 261 mg/dl (70-99) H 04/10/23 04:19
Calcium 7.9 mg/dl (8.4-10.2) L 04/10/23 04:19
Uiw-R-Mhunkbedlbq Pept > 48844 pg/ml 04/07/23 20:02
Albumin 2.8 g/dl (3.5-5.0) L 04/08/23 05:05
Physical Exam
-
Vital Signs:
Vital Signs
Temp Pulse Resp BP Pulse Ox
100.1 F 63 16 133/103 100
04/10/23 07:27 04/10/23 04:00 04/10/23 04:00 04/09/23 11:41 04/10/23 08:00
Cardiovascular:: Regular rate and rhythm
Respiratory:: Bilateral: Coarse
Lung Excursion:: Normal
Abdomen:: Nontender and Soft
Bowel Sounds:: Normal
Extremity Edema:: None: Bilateral:
--- NOTE | 2023-04-10 09:54 | PHA.VAN.FU ---
Vancomycin Assessment / Plan
- Assessment
Hemodialysis Schedule: MWF
WBC's are: Trending Up
In the past 24 hrs, patient has been: Febrile (Tmax = 100.6)
- Dosing Plan
Continue: Dose by level
- Monitoring Plan
Random Level: 04/10/23 AM
- Follow Up
Pharmacy will continue to follow.
Vancomycin Follow UP
- -
Patient Age: 82
Patient Sex: Female
Vancomycin Day #: 4
Indication: Pulmonary/Respiratory
Requesting Provider: Dr. Kim
Pertinent Antimicrobial Allergies:
NKDA
Height / Weight:
Height 5 ft
Actual Weight 48.2 kg
Pertinent Past Medical History: ESRD on HD MWF
- Vital Signs / Lab Results
Temp Pulse Resp BP Pulse Ox
100.1 F 63 16 133/103 100
04/10/23 07:27 04/10/23 04:00 04/10/23 04:00 04/09/23 11:41 04/10/23 08:00
Lab Results - Hematology
04/07/23 04/08/23 04/08/23
15:36 05:05 14:36
WBC 10.2 21.8 H 19.2 H
04/09/23 04/10/23
05:24 04:19
WBC 11.3 H 19.6 H
Lab Results - Chemistry
04/07/23 04/07/23 04/08/23
15:36 17:37 05:05
BUN Cancelled 16 24 H
Creatinine Cancelled 2.9 H 3.5 H
Estimated Creat Clear Cancelled 11 9
Albumin Cancelled 3.0 L 2.8 L
04/09/23 04/10/23
05:24 04:19
BUN 33 H 19 H
Creatinine 3.9 H 2.5 H
Estimated Creat Clear 8 13
Albumin
04/07/23 04/07/23 04/08/23
15:50 20:02 05:05
Lactic Acid 3.4 H 6.1 H* 3.9 H
04/08/23 04/08/23 04/08/23
10:30 14:36 18:20
Lactic Acid 3.0 H 2.3 H 1.9
Microbiology Results
04/08/23 10:33 Respiratory Culture - Final
Tracheal Aspirate Staph aureus MRSA
Gram Stain - Final
04/07/23 17:37 Blood Culture - Preliminary
Blood/Venous No Growth in 48 hours- Final report to follow
04/07/23 15:50 Blood Culture - Preliminary
Blood/Venous No Growth in 48 hours- Final report to follow
04/07/23 17:36 Urine Culture - Final
Urine Enterococcus faecalis
04/08/23 05:05 MRSA Screen - Final
Nose Staph aureus MRSA
Therapeutic Drug Monitoring
Random Vancomycin 12.4 ug/ml 04/09/23 09:30
--- NOTE | 2023-04-10 10:01 | W.PN.CARDCBS ---
Today's Communication / Plan
-
Wean pressors tolerated
Negative fluid balance of possible
Goal of extubation
I have no objection to discontinuing heparin
Once extubation can consider goals of care discussion with patient and son as is apparent that the patient has refused PCI or TAVR evaluation recently
Currently she would not be in a clinical position to pursue that but hopefully if she improves can have ongoing discussions with patient and family
Discussed with nursing at bedside
Will follow with you
Impression / Plan
-
PCP: Dr. Taylor
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
Impression:
Acute hypoxic respiratory failure requiring intubation
Suspected septic shock
Acute on chronic HF unknown EF
NSTEMI with peak troponin of 8.5
Suspected sepsis, UTI
CAD
Severe
s/p PPM
HTN
HLD
ESRD on HD
Echo 04/08/2023: Ejection fraction 25%, septal akinesis, anterior and inferior acuna are severely hypokinetic mild concentric LVH, severe MR, severe AAS with mean gradient of 71 mmHg and arnav of 0.2 cm�
Plan:
Remains intubated and sedated.
Nephrology attempting to diurese with dialysis
Remains on Levophed and will try to wean off. We may have to tolerate a lower mean pressure given her critical aortic stenosis and would suggest goal of mean pressure of 68 mmHg if this allows us to come off of some or all of her pressors
Unable to give beta-rochelle with hypotension requiring pressors
Continue aspirin via tube
She had declined PCI and TAVR are on recent hospitalization. She would need some semblance of clinical stability even consider these interventions and she has declined intervention per my colleagues notes on recent hospitalizations. Hopefully she
can be extubated in the near term and goals of care can be discussed with patient and her family.
I have no objection to discontinuing heparin.
We need to review prior records but conservative/comfort care might be appropriate
HPI: Usha is an 82 year old female with PMH of CAD, severe , chronic heart failure, PPM, HTN, HLD, and ESRD on HD who presented to [facility] for evaluation of lethargy. She was reportedly recently admitted at an outside hospital where she underwent
cardiac catheterization and was recommended PCI and TAVR which was not performed for unclear reasons. She has been at [facility] after this hospitalization, however came to ER as she was noted to be lethargic and hypoxic with cough. She was
unable to provide history given respiratory distress and ultimately required intubation overnight. Evaluation in ER revealed evidence of acute heart failure with pulmonary edema and moderate b/l pleural effusions on chest xray. proBNP >27,000.
Labwork also revealed suspected sepsis with leukocytosis, elevated lactic acid, and UA consistent with possible UTI. She was admitted for further workup and evaluation and cardiology was consulted.
Progress Note - Rod Machine Operator
Subjective
Date of Service: April 10, 2023
intubated/sedated
Objective
Labs:
04/10/23 04:19
04/10/23 04:19
Labs
Hgb 8.9 g/dL (12.0-16.0) L 04/10/23 04:19
Hct 26.0 % (37.0-47.0) L 04/10/23 04:19
Plt Count 75 10^3/uL (130-400) L 04/10/23 04:19
PT 18.4 Sec (11.4-14.6) H 04/08/23 05:05
INR 1.52 04/08/23 05:05
APTT 99.4 Sec (23.4-35.0) H 04/10/23 07:06
Sodium 128 mmol/L (135-145) L 04/10/23 04:19
Potassium 3.6 mmol/L (3.5-5.1) 04/10/23 04:19
BUN 19 mg/dl (7-17) H 04/10/23 04:19
Creatinine 2.5 mg/dL (0.6-1.0) H 04/10/23 04:19
Glucose 261 mg/dl (70-99) H 04/10/23 04:19
Troponins
04/07/23 04/08/23 04/08/23
20:02 05:05 10:30
Troponin I 1.150 H* 4.780 H* 8.450 H* D
04/08/23
16:57
Troponin I 7.490 H*
Vital Signs and I&O:
Vital Signs
Temp Pulse Resp BP Pulse Ox
100.1 F 63 16 133/103 100
04/10/23 07:27 04/10/23 04:00 04/10/23 04:00 04/09/23 11:41 04/10/23 08:00
Vital Signs
Temp Pulse Resp BP Pulse Ox
100.1 F 63 16 133/103 100
04/10/23 07:27 04/10/23 04:00 04/10/23 04:00 04/09/23 11:41 04/10/23 08:00
Intake & Output
04/08/23 04/09/23 04/10/23 04/11/23
06:59 06:59 06:59 06:59
Intake Total 764.1 / 815.4 1534.5 / 1572.9 1484.5 / 1541.1 173.2 / 173.2
Balance 764.1 / 815.4 1534.5 / 1572.9 1484.5 / 1541.1 173.2 / 173.2
Physical Exam
Physical Exam
intubated/sedation
on pressor
cor 2/6 holosystolic murmur
lungs diminished
abd soft nt nd
no ext edema
aao x3
non focal neurologically
--- NOTE | 2023-04-10 11:10 | PTCARENOTE ---
[facility] [facility] called...confirmed that pt was rec'd from [facility]....records requested.
[2023-04-10 11:38] LABS: Glucose - Point of Care 216 mg/dl (70-99)
--- NOTE | 2023-04-10 12:00 | PTCARENOTE ---
Pt's two sisters and brother in room to visit. All questions answered and emotional support provided. Notified that pt would like update from MD. No major changes in physical assessment. Will continue to monitor closely.
[2023-04-10] MEDS: NOVOLOG FLEXPEN-MODERATE RESISTANCE 3 UNITS SC (12:39)
--- NOTE | 2023-04-10 12:59 | PTCARENOTE ---
at bedside to update famiily and answer all questions.
--- NOTE | 2023-04-10 13:10 | W.PN.HOSP.TC ---
Today's Communication/Plan
-
Wean pressors as tolerated
Continue with antibiotic
Ultrafiltration/HD per nephrology
Prognosis poor
Assessment / Plan
Assessment / Plan
Impression:
Acute hypoxic respiratory failure status post intubation mechanical ventilation
Acute CHF reduced EF
Non-STEMI with peak troponin 8.5
Acute pulmonary edema
Shock with severe hypotension requiring IV pressors, suspect cardiogenic versus sepsis
Lactic acidosis
Type II [place] secondary to demand ischemia
Severe sepsis secondary to MRSA pneumonia
Conditions prior to admission:
CHF unknown EF
CAD.
Cardiomyopathy
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
Severe aortic stenosis
End-stage renal disease on HD.
Right chest hemodialysis catheter.
Essential hypertension
Dyslipidemia
Plan:
Acute hypoxic respiratory failure.
Intubated on 04/07 in ED for severe respiratory distress and hypoxia
Chest x-ray with bilateral pulmonary edema and cardiomegaly.
Patient with history of CAD, suspected cardiomyopathy, severe aortic stenosis as well as end-stage renal disease.
Continue vent support.
Continue sedation with propofol
Hemodynamics/volume optimization with HD, attempt to wean off norepinephrine as tolerates.
Continue with tube feeds
Cardiovascular:
Acute CHF reduced EF.
Non-STEMI with peak troponin 8.5
Pulmonary edema
Patient with suspected CAD and cardiomyopathy, severe aortic stenosis, hypertension
Echocardiogram with severely reduced LVEF at 25% and critical aortic stenosis
Requested medical records from recent hospitalization at [facility]
With hypotension hold metoprolol and Norvasc.
Per patient sisters and brothers patient has refused surgery in the past for aortic valve.
Per cardiology okay to discontinue heparin drip.
ESRD on hemodialysis
Significant difficulty for volume removal/ultrafiltration due to hypotension
Nephrology on board
MRSA pneumonia
Abnormal urinalysis in patient with end-stage renal disease.
Follow blood cultures negative so far
Follow urine culture negative so far
Right chest HD catheter in place
Sputum sample with MRSA
Empiric antibiotics: Vancomycin/Zosyn
Trend fever curve and can discontinue Zosyn in the next 24 hours
Anemia, suspect anemia of chronic disease
Trend hemoglobin
Full code
DVT prophylaxis: Heparin.
N.p.o.
Discussed case in detail with 2 sisters and patient brother at bedside. Family states the patient has refused surgery in regards for the aortic valve in the past. Sisters stated patient had expressed her wishes in the past that she did not want to
live artificially and did not want intubation. However no living will. Patient hospitalization course was explained in detail with family members at bedside. Multiple questions were answered to their satisfaction. Family stated they will talk to
patient's son however they understand son would be hesitant to change CODE STATUS. Patient has total of 6 other siblings. 2 sisters and brothers appreciated the update however they would like more time over the weekend to discuss among other
relatives and patient's son. Significant amount of time was spent discussing and answering all questions regarding patient hospitalization so far.
Total Critical Care Time 65 minutes. I was immediately available to the patient and staff. I personally examined, reviewed labs, diagnostic images/reports, interpretations, treatment plans, discussed patient care with other providers and family
or caregivers (if patient is unable to make decisions), entered orders as appropriate and documented the medical record.
Prognosis guarded
Anticipated Discharge: > 48 hours
Subjective/Interval History
-
Date of Service: April 10, 2023
Pt is intubated and sedated
Currently on levophed and vasporessin
remains comfortable on vent
BP stable on 2 pressors
TF ongoing
Objective Data
-
Labs:
Laboratory Results
04/10/23 04/10/23
04:19 07:06
WBC 19.6 H
Hgb 8.9 L
Hct 26.0 L
Plt Count 75 L
APTT 99.4 H
HCO3 23.4
Sodium 128 L
Potassium 3.6
Chloride 97 L
Carbon Dioxide 23
BUN 19 H
Creatinine 2.5 H
Glucose 261 H
Calcium 7.9 L
Vital Signs:
Vital Signs
Temp Pulse Resp BP Pulse Ox
100.4 F H 66 14 133/103 100
04/10/23 11:04 04/10/23 12:30 04/10/23 12:30 04/09/23 11:41 04/10/23 12:30
I&O
04/09/23 04/10/23 04/11/23
06:59 06:59 06:59
Intake Total 1534.5 / 1572.9 1484.5 / 1541.1 414.6 / 414.6
Balance 1534.5 / 1572.9 1484.5 / 1541.1 414.6 / 414.6
Physical Exam
-
General: No Apparent Distress, Appears Chronically Ill and Cachectic
HEENT: Normocephalic, Atraumatic and Other (Right chest wall HD catheter noted)
Respiratory: Decreased Breath Sounds
Cardiac: Regular Rhythm and S1/S2; Negative Murmur, Rub or Gallop
GI: Soft, Nondistended, Normal Bowel Sounds and Other (ngt ); Negative Organomegaly
Rectal: Deferred by Provider
Musculoskeletal: No Clubbing, No Cyanosis and No Edema
Skin: Negative Rash
Neuro: Sedated
--- NOTE | 2023-04-10 16:00 | PTCARENOTE ---
Pt remains intubated and sedated. No major changes in physical assessment. Will continue to monitor.
[2023-04-10] MEDS: LIPITOR 40 MG TUBE (17:08)
[2023-04-10] MEDS: NOVOLOG FLEXPEN-MODERATE RESISTANCE 1 UNITS SC ×2 (17:17→23:51)
[2023-04-10 17:27] LABS: Glucose - Point of Care 185 mg/dl (70-99)
--- NOTE | 2023-04-10 20:00 | PTCARENOTE ---
Pt received this PM, intubated and sedated. All gtts checked, infusing per orders. Popliteal pulses noted only by doppler, Vpaced on tele. See VS flowsheet for all VS. # 8 ETT at 24cm, tolerating vent settings at this time. Lung sounds course B/L,
campos thick blood tinged secretions noted upon suctioning. Mouth care done. DHT in L nare with TF per orders. 305 of residual noted. abd soft, normal BS. Incont. of liquid brown stool. Anuric, on HD. Turned and repositioned.
[2023-04-10 23:58] LABS: Glucose - Point of Care 197 mg/dl (70-99)
[2023-04-11] MEDS: ZOSYN 50 IV ×3 (01:32→17:13)
[2023-04-11] MEDS: PITRESSIN 100 IV (02:41)
--- NOTE | 2023-04-11 02:45 | PTCARENOTE ---
Pt reassessed no changes at this time, turned and repositioned.
[2023-04-11 04:32] LABS: B.E. 1.7 mmol/L; HCO3 25.7 mmol/L (21-28); Ionized Calcium 1.21 mMOL/L (1.15-1.33); O2 Saturation % 97.3 % (94-98); PCO2 37 mmHg (32-35); PO2 93 mmHg (83-108); Potassium 3.2 mMOL/L (3.5-5.1); Sodium 128 mMOL/L (136-145); pH 7.45 (7.35-7.45)
[2023-04-11 04:52] LABS: Hematocrit 25.5 % (37.0-47.0); Hemoglobin 8.6 g/dL (12.0-16.0); Mean Corp Hgb Conc. 33.7 g/dL (33.0-37.0); Mean Corpuscular Hgb 32.8 pg (27.0-31.0); Mean Corpuscular Volume 97.3 fL (81.0-99.0); Mean Platelet Volume 13.8 fL (7.4-10.4); Platelet Count 64 10^3/uL (130-400); Red Blood Cell Count 2.62 10^6/uL (4.20-5.40); Red Cell Dist. Width 23.7 % (11.5-14.5); White Blood Cell Count 15.5 10^3/uL (4.8-10.8)
--- NOTE | 2023-04-11 05:10 | PTCARENOTE ---
pt reassessed. no changes at this time. Labs drawn via A-line per orders. CHG bath and mouth care done, sheets changed. turned and repositioned
[2023-04-11 05:14] LABS: Blood Urea Nitrogen 31 mg/dl (7-17); Calcium 8.6 mg/dl (8.4-10.2); Carbon Dioxide 27 mmol/L (22-30); Chloride 95 mmol/L (98-107); Estimated Creatinine Clearance 9 ml/min; Glucose 342 mg/dl (70-99); Magnesium 2.2 mg/dl (1.6-2.3); Potassium 3.4 mmol/L (3.5-5.1); Sodium 128 mmol/L (135-145); eGFR 12.67
[2023-04-11 05:25] LABS: Vancomycin Random 20.5 ug/ml
[2023-04-11] MEDS: KCL ELIXIR 10 MEQ TUBE (05:44)
[2023-04-11] MEDS: NOVOLOG FLEXPEN-HIGH RESISTANCE 10 UNITS SC (05:48)
[2023-04-11 06:00] VITALS: BMI 21.5
[2023-04-11] MEDS: DIPRIVAN 100 IV ×2 (06:00→17:55)
[2023-04-11] MEDS: LOW STRENGTH ASPIRIN 81 MG TUBE (07:38)
--- NOTE | 2023-04-11 08:06 | PTCARENOTE ---
Rec'd pt at 0700. Pt sedate on 15mcg/kg/min Propofol on vent. Grimaces with nursing care. Monitor V-paced, +murmur. SBP 110's via right radial a-line, pt remains on Vasopressin and Levophed gtts. Lungs rhonchi throughout, pox 100% on 40% fio2. +BS,
abd soft/nt. DHT with Nepro at 25mls/hr. Incont for small loose campos stool. Pericare performed. Pt turned and repositioned.
--- NOTE | 2023-04-11 09:00 | PHA.VAN.FU ---
Vancomycin Assessment / Plan
- Assessment
Hemodialysis Schedule: MWF
WBC's are: Trending Down
In the past 24 hrs, patient has been: Febrile (Tmax 100.4)
Concomitant Antimicrobials: Piperacillin-tazobactam
- Assessment - Therapeutic Drug Monitoring
Random Level: R = 20.5. Last Vanco 500mg 2/2 at 1324 post HD
- Dosing Plan
Continue: Dose by level
Dosing by Level: Hold off on dosing today
- Monitoring Plan
Random Level: 2/5 AM
- Follow Up
Pharmacy will continue to follow.
Vancomycin Follow UP
- -
Patient Age: 82
Patient Sex: Female
Vancomycin Day #: 5
Indication: Pulmonary/Respiratory
Requesting Provider: Dr. Kim
Pertinent Antimicrobial Allergies:
NKDA
Height / Weight:
Height 5 ft
Actual Weight 49.9 kg
Pertinent Past Medical History: ESRD on HD MWF
- Vital Signs / Lab Results
Temp Pulse Resp BP Pulse Ox
99.4 F 74 14 133/103 100
04/11/23 07:42 04/11/23 07:30 04/11/23 07:30 04/09/23 11:41 04/11/23 07:38
Lab Results - Hematology
04/08/23 04/09/23 04/10/23
14:36 05:24 04:19
WBC 19.2 H 11.3 H 19.6 H
04/11/23
04:26
WBC 15.5 H
Lab Results - Chemistry
04/09/23 04/10/23 04/11/23
05:24 04:19 04:26
BUN 33 H 19 H 31 H
Creatinine 3.9 H 2.5 H 3.5 H
Estimated Creat Clear 8 13 9
04/08/23 04/08/23 04/08/23
10:30 14:36 18:20
Lactic Acid 3.0 H 2.3 H 1.9
Microbiology Results
04/07/23 17:37 Blood Culture - Preliminary
Blood/Venous No Growth in 72 hours- Final report to follow
04/07/23 15:50 Blood Culture - Preliminary
Blood/Venous No Growth in 72 hours- Final report to follow
04/08/23 10:33 Respiratory Culture - Final
Tracheal Aspirate Staph aureus MRSA
Gram Stain - Final
04/07/23 17:36 Urine Culture - Final
Urine Enterococcus faecalis
04/08/23 05:05 MRSA Screen - Final
Nose Staph aureus MRSA
Therapeutic Drug Monitoring
Random Vancomycin 20.5 ug/ml 04/11/23 04:26
--- NOTE | 2023-04-11 09:16 | W.PN.CARDCBS ---
Today's Communication / Plan
-
Wean pressors as able
Fluid off with dialysis as able although likely will be limited by low blood pressure
Worsening platelet count and hemoglobin I do not understand the etiology of this but defer to internal medicine and critical care teams
Prognosis appears guarded to grim
Impression / Plan
-
PCP: Dr. Taylor
Arboriculture Instructor: Unknown
Impression:
Acute hypoxic respiratory failure requiring intubation
Suspected septic shock
Acute on chronic HF unknown EF
NSTEMI with peak troponin of 8.5
Suspected sepsis, UTI
CAD
Severe
s/p PPM
HTN
HLD
ESRD on HD
Echo 04/08/2023: Ejection fraction 25%, septal akinesis, anterior and inferior acuna are severely hypokinetic mild concentric LVH, severe MR, severe AAS with mean gradient of 71 mmHg and arnav of 0.2 cm�
Plan:
Remains intubated and sedated. Wean pressors as able
Nephrology attempting to diurese with dialysis
Blood pressures have been obtained relative stability
Unable to give beta-rochelle with hypotension requiring pressors
Continue aspirin via tube
She had declined PCI and TAVR are on recent hospitalization. She would need some semblance of clinical stability even consider these interventions and she has declined intervention per my colleagues notes on recent hospitalizations. Hopefully she
can be extubated in the near term and goals of care can be discussed with patient and her family.
I have no objection to discontinuing heparin.
We need to review prior records but conservative/comfort care might be appropriate
HPI: Usha is an 82 year old female with PMH of CAD, severe , chronic heart failure, PPM, HTN, HLD, and ESRD on HD who presented to [facility] for evaluation of lethargy. She was reportedly recently admitted at an outside hospital where she underwent
cardiac catheterization and was recommended PCI and TAVR which was not performed for unclear reasons. [facility], however came to ER as she was noted to be lethargic and hypoxic with cough. She was
unable to provide history given respiratory distress and ultimately required intubation overnight. Evaluation in ER revealed evidence of acute heart failure with pulmonary edema and moderate b/l pleural effusions on chest xray. proBNP >27,000.
Labwork also revealed suspected sepsis with leukocytosis, elevated lactic acid, and UA consistent with possible UTI. She was admitted for further workup and evaluation and cardiology was consulted.
Progress Note - Arboriculture Instructor
Subjective
Date of Service: April 11, 2023
Feels well
Objective
Labs:
04/11/23 04:26
04/11/23 04:
Labs
Hgb 8.6 g/dL (12.0-16.0) L 04/11/23 04:26
Hct 25.5 % (37.0-47.0) L 04/11/23 04:26
Plt Count 64 10^3/uL (130-400) L 04/11/23 04:26
PT 18.4 Sec (11.4-14.6) H 04/08/23 05:05
INR 1.52 04/08/23 05:05
APTT 99.4 Sec (23.4-35.0) H 04/10/23 07:06
Sodium 128 mmol/L (135-145) L 04/11/23 04:26
Potassium 3.4 mmol/L (3.5-5.1) L 04/11/23 04:26
BUN 31 mg/dl (7-17) H 04/11/23 04:26
Creatinine 3.5 mg/dL (0.6-1.0) H 04/11/23 04:26
Glucose 342 mg/dl (70-99) H 04/11/23 04:26
Troponins
04/08/23 04/08/23
10:30 16:57
Troponin I 8.450 H* D 7.490 H*
Vital Signs and I&O:
Vital Signs
Temp Pulse Resp BP Pulse Ox
99.4 F 74 14 133/103 100
04/11/23 07:42 04/11/23 07:30 04/11/23 07:30 04/09/23 11:41 04/11/23 07:38
Vital Signs
Temp Pulse Resp BP Pulse Ox
99.4 F 74 14 133/103 100
04/11/23 07:42 04/11/23 07:30 04/11/23 07:30 04/09/23 11:41 04/11/23 07:38
Intake & Output
04/09/23 04/10/23 04/11/23 04/12/23
06:59 06:59 06:59 06:59
Intake Total 1534.5 / 1572.9 1484.5 / 1541.1 1464.4 / 1514.0 129.2 / 129.2
Balance 1534.5 / 1572.9 1484.5 / 1541.1 1464.4 / 1514.0 129.2 / 129.2
Physical Exam
Physical Exam
HEENT normocephalic atraumatic
JVP 6
Intubated
Rhonchorous throughout both lung pena
2 out of 6 holosystolic murmur with blunted S2
Abdomen soft
Trace extremity edema
Sedated
--- NOTE | 2023-04-11 09:21 | W.PN.NEPH.PH ---
Today's Communication / Plan
-
HD tomorrow
Assessment/Plan
-
IMP:
Acute Hypoxic respiratory failure
acute on chronic CHF exacerbation, unclear type
suspected Septic shock secondary to UTI/possible pneumonia
End-stage renal disease on hemodialysis-[facility]
ischemic coronary artery disease
severe aortic stenosis
Essential hypertension now hypotension
Hypercholesterolemia
Chronic anemia
PPM
Plan:
-HD tomorrow
-difficult to remove volume easily given hypotension and severe
-await records from OSH
-keep MAP>65 with pressors
-Son is POA and driving goals of care. She had DNI/DNR at [facility] but was intubed here. Other family (siblings) have expressed preference for comfort.
-prognosis is poor
-critical care time 31 minutes
-
-
Date of Service: April 11, 2023
CC / HPI / ROS
-
Chief Complaint:
ESRD
History of Present Illness:
remains on pressors, intubated FIo2 40%
WBC remains elevated
no issues with HD wednesday
weights fairly stable
plts falling
critically ill in ICU
Review of Systems:
sedated and intubated
Labs
-
Labs:
WBC 15.5 10^3/uL (4.8-10.8) H 04/11/23 04:26
RBC 2.62 10^6/uL (4.20-5.40) L 04/11/23 04:26
Hgb 8.6 g/dL (12.0-16.0) L 04/11/23 04:26
Hct 25.5 % (37.0-47.0) L 04/11/23 04:26
Plt Count 64 10^3/uL (130-400) L 02/04/24 04:26
Sodium 128 mmol/L (135-145) L 04/11/23 04:26
Potassium 3.4 mmol/L (3.5-5.1) L 04/11/23 04:26
Chloride 95 mmol/L (98-107) L 04/11/23 04:26
Carbon Dioxide 27 mmol/L (22-30) 04/11/23 04:26
BUN 31 mg/dl (7-17) H 04/11/23 04:26
Creatinine 3.5 mg/dL (0.6-1.0) H 04/11/23 04:26
eGFR 12.67 04/11/23 04:26
Glucose 342 mg/dl (70-99) H 04/11/23 04:26
Calcium 8.6 mg/dl (8.4-10.2) 04/11/23 04:26
Zwl-I-Srvscvitiru Pept > 78882 pg/ml 04/07/23 20:02
Albumin 2.8 g/dl (3.5-5.0) L 04/08/23 05:05
Physical Exam
-
Vital Signs:
Vital Signs
Temp Pulse Resp BP Pulse Ox
99.4 F 74 14 133/103 100
04/11/23 07:42 04/11/23 07:30 04/11/23 07:30 04/09/23 11:41 04/11/23 07:38
Cardiovascular:: Regular rate and rhythm
Respiratory:: Bilateral: Coarse
Lung Excursion:: Normal
Abdomen:: Nontender and Soft
Bowel Sounds:: Normal
Extremity Edema:: +1: Bilateral: (UE)
--- NOTE | 2023-04-11 10:14 | W.PN.INTV ---
Today's Communication / Plan
Recommendations
MV
Sedation
Atbs
RELIGIOUS ACTIVITIES DIRECTOR
Assessment
-
Assessment:
Mrs Usha Tapia is an 82/W adm 04-07 from [facility] with lethargy and severe cough after HD on DOA, and POx 80-83% on RA prior to transfer. PMH: CAD, CHF, HTN, NIDDM, CKD on HD, , reported recent adm to OSH where she was recommended coronary stenting
and TAVR but patient refused (not accepted in transfer to [facility] as was not a surgical candidate). On adm (first DH adm), hypoxemia, hypotension (received 1L NS at ER), developed pulmonary edema and worsening hypoxemia, intubated at ICU.
Impression:
Acute hypoxemic respiratory failure
Intubated at ICU 04-07
Pulmonary edema
Missed HD session 04-05 (last HD 04-03)
MRSA bronchitis/pneumonia
Enterococcus UTI
Leukocytosis
Anemia
Thrombocytopenia
Metabolic/lactic acidosis
Elevated troponins and BNP: NSTEMI
Mild transaminitis
COVID/flu negative
Conditions TREE WORKER:
CAD
CHF
PPM
HTN
NIDDM
CKD on HD
Reported recent adm to OSH where she was recommended coronary stenting and TAVR but patient refused
Plan:
Acute hypoxemic respiratory failure
Intubated at ICU 04-07
Pulmonary edema
Missed HD session 04-05
Last HD 04-07
Due to hypotension received 1U NS at ER
Continue ACV
Current settings: 14-350-5-0.4 (POx 100%), pk pr 26
Sedation/analgesia: propofol/fentanyl
Daily sedation holiday for MS and SBT
Started inpatient HD 04-08, UF 2.5 L
R chest tunnelized HD cath
HD 04-09 ongoing: reported difficulty with UF due to hypotension
CXR post HD 04-09 with recurrent pulm edema pattern
Noted that due to hypotension and , volume removal with HD has been marginal
Continue pressor (NE)
Added vasopressin gtt
Keep MAP>=65
Holding outpatient a-HTN meds (amlodipine, metoprolol succinate XL)
Follow cxs: blood (so far negative), U (Ent sp)
MRSA screening positive
Added resp sec cxs 04-08: MRSA
Empiric atbs on adm: vanco/zosyn, continue
NSTEMI
Known h/o CAD, reportedly declined coronary stenting, also h/o declining TAVR
Started IV heparin gtt, ASA
Limited vascular access
IV team could not place RUE PICC 04-07, but put midline cath
IV team placed LUE PICC 04-08 but tip coiled and could not be repositioned, IRad repositioned PICC
DHT
Enteral feedings
RISS
Reportedly DNR/DNI at time of admission, now full code by son
Sister visited 04-10, she agreed with previous DNR status, will try to talk to son who is visiting 04-11
Pending records from [facility]
Prognosis remains guarded
Continue GOC discussions
Critical care time: 35 min
Diagnostic tests:
CXR 04-07-23: no previous films. pulm vasc congestion. R chest tunnelized HD cath. RUE midline cath.
CXR 04-08-23: interim intubation, pulm edema, small bilateral pleural effusions
Subjective Dataa
Subjective Data
Date of Service:
Date of Service: April 11, 2023
Chief Complaint: Crm Campaign Manager Follow Up
Subjective:
Continues on mechanical ventilation
Continues on vasopressors and sedation
Review of Systems
General: Unobtainable - Sedation
Objective Data
Data Reviewed
Vital Signs / I&O / Oxygen:
Vital Signs
Temp Pulse Resp BP Pulse Ox
99.4 F 74 14 133/103 100
04/11/23 07:42 04/11/23 07:30 04/11/23 07:30 04/09/23 11:41 04/11/23 07:38
Intake and Output
04/10/23 04/11/23 04/12/23
06:59 06:59 06:59
Intake Total 1484.5 / 1541.1 1464.4 / 1514.0 129.2 / 129.2
Balance 1484.5 / 1541.1 1464.4 / 1514.0 129.2 / 129.2
SaO2 [A/C] 100
SaO2 100
Nasal Cannula flow liters per 55
minute
Physical Exam
General: Respiratory Distress (n)
HEENT: Normocephalic and Moist Mucous Membranes
Cardiovascular: Regular Rhythm and Murmur (AV)
Respiratory: Clear, Non-Labored Respirations and Stridor (n)
GI: Soft, Non Distended and NG Tube
Neurology: Other (sedated)
Skin: Dry
Labs/Micro/Reports
Lab Data
04/11/23 04:26
04/11/23 04:26
Laboratory Results
04/11/23
04:26
pH 7.45
pCO2 37 H
pO2 93
HCO3 25.7
O2 Delivery Level
Microbiology
04/07/23 17:37 Blood/Venous Blood Culture - Preliminary
No Growth in 72 hours- Final report to follow
04/07/23 15:50 Blood/Venous Blood Culture - Preliminary
No Growth in 72 hours- Final report to follow
04/08/23 10:33 Tracheal Aspirate Respiratory Culture - Final
Staph aureus MRSA
04/08/23 10:33 Tracheal Aspirate Gram Stain - Final
04/07/23 17:36 Urine Urine Culture - Final
Enterococcus faecalis
04/08/23 05:05 Nose MRSA Screen - Final
Staph aureus MRSA
--- NOTE | 2023-04-11 10:24 | W.PN.HOSP.TC ---
Today's Communication/Plan
-
Monitor CBC
Dialysis tomorrow
Wean pressors as tolerated
Continue antibiotic
Continue tube feeds
Prognosis poor
Assessment / Plan
Assessment / Plan
Impression:
Acute hypoxic respiratory failure status post intubation mechanical ventilation
Acute CHF reduced EF
Non-STEMI with peak troponin 8.5
Acute pulmonary edema
Shock with severe hypotension requiring IV pressors, suspect cardiogenic versus sepsis
Lactic acidosis
Type II MD secondary to demand ischemia
Severe sepsis secondary to MRSA pneumonia
Thrombocytopenia likely secondary to severe sepsis
Anemia of chronic disease
Conditions prior to admission:
CHF unknown EF
CAD.
Cardiomyopathy
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
Severe aortic stenosis
End-stage renal disease on HD.
Right chest hemodialysis catheter.
Essential hypertension
Dyslipidemia
Plan:
Acute hypoxic respiratory failure.
Intubated on 04/07 in ED for severe respiratory distress and hypoxia
Chest x-ray with bilateral pulmonary edema and cardiomegaly.
Patient with history of CAD, suspected cardiomyopathy, severe aortic stenosis as well as end-stage renal disease.
Continue vent support.
Continue sedation with propofol
Hemodynamics/volume optimization with HD, attempt to wean off norepinephrine as tolerates.
Continue with tube feeds
Cardiovascular:
Acute CHF reduced EF.
Non-STEMI with peak troponin 8.5
Pulmonary edema
Patient with suspected CAD and cardiomyopathy, severe aortic stenosis, hypertension
Echocardiogram with severely reduced LVEF at 25% and critical aortic stenosis
Requested medical records from recent hospitalization at [facility]
With hypotension hold metoprolol and Norvasc.
Per patient sisters and brothers patient has refused surgery in the past for aortic valve.
Per cardiology okay to discontinue heparin drip.
ESRD on hemodialysis
Significant difficulty for volume removal/ultrafiltration due to hypotension
Nephrology on board
MRSA pneumonia
Abnormal urinalysis in patient with end-stage renal disease.
Follow blood cultures negative so far
Follow urine culture negative so far
Right chest HD catheter in place
Sputum sample with MRSA
Empiric antibiotics: Vancomycin/Zosyn
Trend fever curve and can discontinue Zosyn once afebrile >24h.
Last fever noted on 04/10 at 11am
Anemia, suspect anemia of chronic disease
Trend hemoglobin. No luminal bleeding noted. EPO and IV iron per nephrology
Thrombocytopenia
Unclear if chronic no prior labs.
Patient was on heparin drip however also with severe sepsis
Check heparin associated antiplatelet antibodies
Unclear certainly if patient exposed to heparin prior to admission during dialysis or at prior hospitalizations recently
Full code
DVT prophylaxis: Heparin.
N.p.o.
Discussed case in detail with 2 sisters and patient brother at bedside on 04/10/2023. Family states the patient has refused surgery in regards for the aortic valve in the past. Sisters stated patient had expressed her wishes in the past that she did
not want to live artificially and did not want intubation. However no living will. Patient hospitalization course was explained in detail with family members at bedside. Multiple questions were answered to their satisfaction. Family stated they
will talk to patient's son however they understand son would be hesitant to change CODE STATUS. Patient has total of 6 other siblings. 2 sisters and brothers appreciated the update however they would like more time over the weekend to discuss
among other relatives and patient's son. Significant amount of time was spent discussing and answering all questions regarding patient hospitalization so far.
Prognosis guarded
Total Critical Care Time_ 45 minutes. I was immediately available to the patient and staff. I personally examined, reviewed labs, diagnostic images/reports, interpretations, treatment plans, discussed patient care with other providers and family
or caregivers (if patient is unable to make decisions), entered orders as appropriate and documented the medical record.
Anticipated Discharge: > 48 hours
Subjective/Interval History
-
Date of Service: April 11, 2023
Remains intubated and sedated
Remains on pressors
Remains on antibiotic
Tolerating tube feeds
Objective Data
-
Labs:
Laboratory Results
04/11/23
04:26
WBC 15.5 H
Hgb 8.6 L
Hct 25.5 L
Plt Count 64 L
HCO3 25.7
Sodium 128 L
Potassium 3.4 L
Chloride 95 L
Carbon Dioxide 27
BUN 31 H
Creatinine 3.5 H
Glucose 342 H
Calcium 8.6
Vital Signs:
Vital Signs
Temp Pulse Resp BP Pulse Ox
99.4 F 74 14 133/103 100
04/11/23 07:42 04/11/23 07:30 04/11/23 07:30 04/09/23 11:41 04/11/23 07:38
I&O
04/10/23 04/11/23 04/12/23
06:59 06:59 06:59
Intake Total 1484.5 / 1541.1 1464.4 / 1514.0 129.2 / 129.2
Balance 1484.5 / 1541.1 1464.4 / 1514.0 129.2 / 129.2
Physical Exam
-
General: No Apparent Distress, Appears Chronically Ill and Cachectic
HEENT: Normocephalic, Atraumatic and Other (Right chest wall HD catheter noted)
Respiratory: Rhonchi
Cardiac: Regular Rhythm and S1/S2; Negative Murmur, Rub or Gallop
GI: Soft, Nondistended, Normal Bowel Sounds and Other (ngt ); Negative Organomegaly
Rectal: Deferred by Provider
Musculoskeletal: No Clubbing, No Cyanosis and No Edema
Skin: Negative Rash
Neuro: Sedated
[2023-04-11] MEDS: NOVOLOG FLEXPEN-HIGH RESISTANCE 4 UNITS SC ×2 (11:31→17:33)
[2023-04-11 11:35] LABS: Glucose - Point of Care 226 mg/dl (70-99)
--- NOTE | 2023-04-11 12:11 | PTCARENOTE ---
1100-SBP 120's, Vasopressin gtts turned off. Assessment unchanged.
--- NOTE | 2023-04-11 16:34 | PTCARENOTE ---
No changes in assessment. Remains off Vasopressin gtts.
[2023-04-11] MEDS: LIPITOR 40 MG TUBE (17:13)
[2023-04-11 17:42] LABS: Glucose - Point of Care 232 mg/dl (70-99)
[2023-04-11] MEDS: LEVOPHED 258 MG IV (18:31)
[2023-04-11 19:00] VITALS: BP_SYST 105
[2023-04-11] MEDS: TYLENOL ORAL SOLUTION 650 MG TUBE (22:03)
[2023-04-12] MEDS: ZOSYN 50 IV ×2 (03:47→10:18)
[2023-04-12] MEDS: NOVOLOG FLEXPEN-HIGH RESISTANCE 4 UNITS SC ×3 (03:56→11:56)
[2023-04-12 04:08] LABS: B.E. -3.4 mmol/L; HCO3 21.3 mmol/L (21-28); O2 Saturation % 97.5 % (94-98); PCO2 36 mmHg (32-35); PO2 92 mmHg (83-108); pH 7.38 (7.35-7.45)
[2023-04-12 04:09] LABS: Hematocrit 27.4 % (37.0-47.0); Hemoglobin 9.3 g/dL (12.0-16.0); Mean Corp Hgb Conc. 33.9 g/dL (33.0-37.0); Mean Corpuscular Hgb 33.1 pg (27.0-31.0); Mean Corpuscular Volume 97.5 fL (81.0-99.0); Platelet Count 65 10^3/uL (130-400); Red Blood Cell Count 2.81 10^6/uL (4.20-5.40); Red Cell Dist. Width 23.7 % (11.5-14.5); White Blood Cell Count 21.8 10^3/uL (4.8-10.8)
[2023-04-12 04:09] LABS: Glucose - Point of Care 239 mg/dl (70-99)
[2023-04-12 04:26] LABS: ALT (SGPT) 40 U/L (0-35); AST (SGOT) 24 U/L (14-36); Albumin 2.4 g/dl (3.5-5.0); Alkaline Phosphatase 99 U/L (38-126); Blood Urea Nitrogen 47 mg/dl (7-17); Calcium 8.8 mg/dl (8.4-10.2); Carbon Dioxide 22 mmol/L (22-30); Chloride 95 mmol/L (98-107); Estimated Creatinine Clearance 7 ml/min; Glucose 244 mg/dl (70-99); Potassium 3.5 mmol/L (3.5-5.1); Sodium 128 mmol/L (135-145); Total Bilirubin 1.1 mg/dl (0.2-1.3); Total Protein 4.8 g/dl (6.3-8.2); eGFR 9.89
[2023-04-12] MEDS: TYLENOL ORAL SOLUTION 650 MG TUBE ×3 (05:46→20:12)
[2023-04-12 06:00] VITALS: BMI 21.7
[2023-04-12 06:30] LABS: Glucose - Point of Care 201 mg/dl (70-99)
[2023-04-12] MEDS: LOW STRENGTH ASPIRIN 81 MG TUBE (07:37)
--- NOTE | 2023-04-12 07:46 | W.PN.INTV ---
Today's Communication / Plan
Recommendations
Antibiotics
Adjust ventilator
Spontaneous breathing trial once stabilized
Wean pressors
Hemodialysis
Assessment
-
Mrs Usha Tapia is an 82/W adm 04-07 from [place] with lethargy and severe cough after HD on DOA, and POx 80-83% on RA prior to transfer. PMH: CAD, CHF, HTN, NIDDM, CKD on HD, , reported recent adm to OSH where she was recommended coronary stenting
and TAVR but patient refused (not accepted in transfer to [facility] as was not a surgical candidate). On adm (first [facility] adm), hypoxemia, hypotension (received 1L NS at ER), developed pulmonary edema and worsening hypoxemia, intubated at ICU.
Acute hypoxemic respiratory failure
Intubated at ICU 04-07-23
Extubated
Pulmonary edema
Missed HD session 04-05-23 (last HD 04-03)
MRSA bronchitis/pneumonia
Enterococcus UTI
Leukocytosis
Anemia
Thrombocytopenia
Metabolic/lactic acidosis
Elevated troponins and BNP: NSTEMI
Mild transaminitis
COVID/flu negative
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
CAD
CHF-EF 25%
PPM
HTN
NIDDM
CKD on HD
Reported recent adm to OSH where she was recommended coronary stenting and TAVR but patient refused
Plan:
Remains critically ill on 2 pressors, intubated, sedated, minimally responsive
Ventilator settings reviewed
Wean FiO2
Follow ABG or VBG
Follow chest x-ray
VAP prevention protocol
Nebulizers if needed
Analgesia and sedatives as needed-monitor for oversedation
Cultures reviewed
Urine culture 04/07/2023-Enterococcus faecalis
MRSA screen positive
Sputum culture positive MRSA
Follow leukocytosis-still elevated at 21.8
Follow lactate
Pressors as needed-currently on norepinephrine and vasopressin
Hold antihypertensive medications-amlodipine and metoprolol as outpatient
Empiric antibiotics
Monitor renal function
Nephrology evaluation ongoing-correspondence reviewed
Hemodialysis as tolerated
Replace electrolytes
Monitor intake/output, lower extremity edema and weight
Monitor blood sugar
Insulin supplementation as needed
Cardiology following-correspondence reviewed-reviewed with Dr. Ramirez
Patient had declined PCI as well as TAVR
Trend troponin
Heparin drip discontinued
Follow hemoglobin and platelet count
Aspirin
Monitor blood sugar
Insulin supplementation as needed
DVT prophylaxis-on heparin
GI prophylaxis-on pantoprazole
Nutrition
Bedside range of motion
Dr. Sparrow call patient [id number] not answer, however, left detailed message on answering machine updating on current clinical situation, multiorgan dysfunction, ongoing supportive care and willingness to call again if additional questions need
to be answered
Critical care statement: A total of 40 minutes of critical care time was provided for this patient today. This includes management of unstable vital signs, evaluation of the patient at bedside, reviewing the patient's pertinent medical records
including radiographs, ventilator management, pressor management, microbiology, laboratory evaluations, and discussion with primary team, consultants, pharmacy, nutrition, physical therapy, case management, charge nurse, critical care nursing, and
respiratory therapy.
Diagnostic tests:
CXR 04-07-23: no previous films. pulm vasc congestion. R chest tunnelized HD cath. RUE midline cath.
CXR 04-08-23: interim intubation, pulm edema, small bilateral pleural effusions
Subjective Dataa
Subjective Data
Date of Service:
Date of Service: April 12, 2023
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
Subjective:
Sedated on a ventilator, review of systems unobtainable, mild secretions, decreased pulses
Review of Systems
General: Other (Per HPI)
Objective Data
Data Reviewed
Vital Signs / I&O / Oxygen:
Vital Signs
Temp Pulse Resp BP Pulse Ox
100.5 F H 88 18 133/103 100
04/11/23 19:20 04/12/23 07:00 04/12/23 07:00 04/09/23 11:41 04/12/23 04:37
Intake and Output
04/11/23 04/12/23 04/13/23
06:59 06:59 06:59
Intake Total 1464.4 / 1514.0 984.2 / 1027.2 85.4 / 85.4
Output Total 0 / 0
Balance 1464.4 / 1514.0 984.2 / 1027.2 85.4 / 85.4
SaO2 [A/C] 98
SaO2 100
Nasal Cannula flow liters per 55
minute
Physical Exam
General: Respiratory Distress (n) and Comfortable
HEENT: Normocephalic, Anicteric and Moist Mucous Membranes
Cardiovascular: Regular Rhythm, Murmur (AV) and Other ( decreased peripheral pulses)
Respiratory: Clear, Wheeze (n), Crackles (n), Rhonchi (nn), Non-Labored Respirations, Accessory Resp Muscle Use, Stridor (n) and ET Tube
GI: Soft, Non Distended and NG Tube
Neurology: Other (sedated on the ventilator)
Skin: Dry, Good Color and Cyanosis (n)
Labs/Micro/Reports
Lab Data
04/12/23 03:58
04/12/23 03:58
Laboratory Results
04/12/23
03:58
pH 7.38
pCO2 36 H
pO2 92
HCO3 21.3
O2 Delivery Level
Microbiology
04/07/23 17:37 Blood/Venous Blood Culture - Preliminary
No Growth in 4 days- Final report to follow
04/07/23 15:50 Blood/Venous Blood Culture - Preliminary
No Growth in 4 days- Final report to follow
04/08/23 10:33 Tracheal Aspirate Respiratory Culture - Final
Staph aureus MRSA
04/08/23 10:33 Tracheal Aspirate Gram Stain - Final
04/07/23 17:36 Urine Urine Culture - Final
Enterococcus faecalis
04/08/23 05:05 Nose MRSA Screen - Final
Staph aureus MRSA
--- NOTE | 2023-04-12 07:57 | W.PN.NEPH.PH ---
Today's Communication / Plan
-
HD today as hemodynamically tolerated
pressor support to keep MAP >60
Assessment/Plan
-
IMP:
Acute Hypoxic respiratory failure
acute on chronic CHF exacerbation, unclear type
suspected Septic shock secondary to UTI/possible pneumonia
End-stage renal disease on hemodialysis-[facility]
ischemic coronary artery disease
severe aortic stenosis
Essential hypertension now hypotension
Hypercholesterolemia
Chronic anemia
PPM
Plan:
-HD today
-difficult to remove volume easily given hypotension and severe
-await records from OSH
-keep MAP>65 with pressors
-Son is POA and driving goals of care. She had DNI/DNR at [facility] but was intubed here. Other family (siblings) have expressed preference for comfort.
-prognosis is poor
-critical care time 31 minutes
Total Time Spent with Patient (in minutes): 31
-
-
Date of Service: April 12, 2023
CC / HPI / ROS
-
Chief Complaint:
ESRD
History of Present Illness:
remains on pressors, intubated FIo2 40%
WBC remains elevated
no issues with HD wednesday
weights fairly stable
plts falling
critically ill in ICU
Review of Systems:
sedated and intubated
febrile
Labs
-
Labs:
WBC 21.8 10^3/uL (4.8-10.8) H 04/12/23 03:58
RBC 2.81 10^6/uL (4.20-5.40) L 04/12/23 03:58
Hgb 9.3 g/dL (12.0-16.0) L 04/12/23 03:58
Hct 27.4 % (37.0-47.0) L 04/12/23 03:58
Plt Count 65 10^3/uL (130-400) L 04/12/23 03:58
Sodium 128 mmol/L (135-145) L 04/12/23 03:58
Potassium 3.5 mmol/L (3.5-5.1) 04/12/23 03:58
Chloride 95 mmol/L (98-107) L 04/12/23 03:58
Carbon Dioxide 22 mmol/L (22-30) 04/12/23 03:58
BUN 47 mg/dl (7-17) H 04/12/23 03:58
Creatinine 4.3 mg/dL (0.6-1.0) H* 04/12/23 03:58
eGFR 9.89 04/12/23 03:58
Glucose 244 mg/dl (70-99) H 04/12/23 03:58
Calcium 8.8 mg/dl (8.4-10.2) 04/12/23 03:58
Tmo-J-Umhcwiemlml Pept > 38341 pg/ml 04/07/23 20:02
Albumin 2.4 g/dl (3.5-5.0) L 04/12/23 03:58
Physical Exam
-
Vital Signs:
Vital Signs
Temp Pulse Resp BP Pulse Ox
101.8 F H 88 18 133/103 100
04/12/23 07:20 04/12/23 07:00 04/12/23 07:00 04/09/23 11:41 04/12/23 04:37
Cardiovascular:: Regular rate and rhythm
Respiratory:: Bilateral: Coarse
Lung Excursion:: Normal
Abdomen:: Nontender and Soft
Bowel Sounds:: Decreased
Extremity Edema:: None: Bilateral:
Barcenas Catheter: No
Other Findings::
gen:intubated and sedated
--- NOTE | 2023-04-12 08:00 | PTCARENOTE ---
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 Patient is intubated and sedated, on levophed and propofol, through left double lumen PICC. RASS/CPOT documented in worklist. Patient is V-Paced on monitor, with murmur auscultated. Patient has #8 ETT, AC
settings 14/650/5/40%, oxygen saturation 100%, although intermittently picked up as extremities are cold. palpable Popliteal pulses only. Patient tolerating feeds, incontinent of bowel this morning. Nepro at 25ml/hr through dobhoff tube. Patient
is anuric. Will review orders and maintain safe environment.
--- NOTE | 2023-04-12 09:16 | PTCARENOTE ---
New Tube feed and tubing exchanged.
--- NOTE | 2023-04-12 09:27 | PHA.VAN.FU ---
Vancomycin Assessment / Plan
- Assessment
Hemodialysis Schedule: MWF
WBC's are: Trending Up
In the past 24 hrs, patient has been: Febrile (101.8)
Concomitant Antimicrobials: piperacillin, tazobactam
- Assessment - Therapeutic Drug Monitoring
Random Level: R=20, pre HD
- Dosing Plan
Continue: to dose by level
Dosing by Level: Re-dose today (500 mg post HD)
- Monitoring Plan
Random Level: 2/7 am
- Follow Up
Pharmacy will continue to follow.
Vancomycin Follow UP
- -
Patient Age: 82
Patient Sex: Female
Vancomycin Day #: 6
Indication: Pulmonary/Respiratory
Requesting Provider: Dr. Kim
Pertinent Antimicrobial Allergies:
NKDA
Height / Weight:
Height 5 ft
Actual Weight 50.3 kg
Pertinent Past Medical History: ESRD on HD MWF
- Vital Signs / Lab Results
Temp Pulse Resp BP Pulse Ox
101.8 F H 89 26 133/103 100
04/12/23 07:20 04/12/23 09:00 04/12/23 09:00 04/09/23 11:41 04/12/23 08:00
Lab Results - Hematology
04/10/23 04/11/23 04/12/23
04:19 04:26 03:58
WBC 19.6 H 15.5 H 21.8 H
Lab Results - Chemistry
04/10/23 04/11/23 04/12/23
04:19 04:26 03:58
BUN 19 H 31 H 47 H
Creatinine 2.5 H 3.5 H 4.3 H*
Estimated Creat Clear 13 9 7
Albumin 2.4 L
Microbiology Results
04/07/23 17:37 Blood Culture - Preliminary
Blood/Venous No Growth in 4 days- Final report to follow
04/07/23 15:50 Blood Culture - Preliminary
Blood/Venous No Growth in 4 days- Final report to follow
04/08/23 10:33 Respiratory Culture - Final
Tracheal Aspirate Staph aureus MRSA
Gram Stain - Final
Therapeutic Drug Monitoring
Random Vancomycin 20.0 ug/ml 04/12/23 03:58
[2023-04-12] MEDS: LEVOPHED 258 MG IV ×2 (11:41→21:58)
[2023-04-12 12:09] LABS: Glucose - Point of Care 236 mg/dl (70-99)
--- NOTE | 2023-04-12 12:12 | PTCARENOTE ---
Patient has had two bowel movements. Turned off propofol as patient remains minimally responsive. Will give PRN medication for ventilator dyssynchrony Patient has shown no non verbal signs of pain. HD here to start dialysis. Will titrate
levophed to maintain MAP>65.
[2023-04-12] MEDS: EPOGEN 10000 UNITS IV (12:26)
[2023-04-12] MEDS: HEPARIN 500 UNITS IV ×2 (12:27→12:58)
--- NOTE | 2023-04-12 12:42 | W.PN.NEPH.HD ---
Assessment
-
Patient seen on HD
sbp currently stable at 1kg u/f
Progress Note - Hemodialysis
-
Date of Service: April 12, 2023
Duration: 30 minutes and 3 hours
Potassium Bath: 3
Calcium Bath: 2.5
Opti-Dialyzer: 160
Ultrafiltration: Other (1kg)
Blood Flow: 400
Dialysate Flow: 600
Heparin: 500 times two
EPO: 10K
--- NOTE | 2023-04-12 13:17 | W.PN.CARDCBS ---
Today's Communication / Plan
-
Remains critically ill and intubated
Nephrology managing volume status
Remains on pressors for hypotension
Patient has refused intervention at [facility] and comfort care may be appropriate
Impression / Plan
-
PCP: Dr. Taylor
Mass Spectroscopist: Unknown
Impression:
Acute hypoxic respiratory failure requiring intubation
Suspected septic shock
Acute on chronic HF unknown EF
NSTEMI with peak troponin of 8.5
Suspected sepsis, UTI
CAD
Severe
s/p PPM
HTN
HLD
ESRD on HD
Echo 04/08/2023: Ejection fraction 25%, septal akinesis, anterior and inferior acuna are severely hypokinetic mild concentric LVH, severe MR, severe AAS with mean gradient of 71 mmHg and arnav of 0.2 cm�
Plan:
She remains critically ill
Remains intubated and requiring pressors for hypotension
Unable to give beta-rochelle hypotension requiring pressors
Continue aspirin through tube.
Nephrology managing volume status
She had declined PCI and TAVR are on recent hospitalization at [place].
Conservative/comfort care might be appropriate but power of insurance defense attorney not ready
HPI: Usha is an 82 year old female with PMH of CAD, severe , chronic heart failure, PPM, HTN, HLD, and ESRD on HD who presented to [facility] for evaluation of lethargy. She was reportedly recently admitted at an outside hospital where she underwent
cardiac catheterization and was recommended PCI and TAVR which was not performed for unclear reasons. She has been at [facility] after this hospitalization, however came to ER as she was noted to be lethargic and hypoxic with cough. She was
unable to provide history given respiratory distress and ultimately required intubation overnight. Evaluation in ER revealed evidence of acute heart failure with pulmonary edema and moderate b/l pleural effusions on chest xray. proBNP >27,000.
Labwork also revealed suspected sepsis with leukocytosis, elevated lactic acid, and UA consistent with possible UTI. She was admitted for further workup and evaluation and cardiology was consulted.
Progress Note - Mass Spectroscopist
Subjective
Date of Service: April 12, 2023
Intubated and sedated
Objective
Labs:
04/12/23 03:58
04/12/23 03:58
Labs
Hgb 9.3 g/dL (12.0-16.0) L 04/12/23 03:58
Hct 27.4 % (37.0-47.0) L 04/12/23 03:58
Plt Count 65 10^3/uL (130-400) L 04/12/23 03:58
PT 18.4 Sec (11.4-14.6) H 04/08/23 05:05
INR 1.52 04/08/23 05:05
APTT 99.4 Sec (23.4-35.0) H 04/10/23 07:06
Sodium 128 mmol/L (135-145) L 04/12/23 03:58
Potassium 3.5 mmol/L (3.5-5.1) 04/12/23 03:58
BUN 47 mg/dl (7-17) H 04/12/23 03:58
Creatinine 4.3 mg/dL (0.6-1.0) H* 04/12/23 03:58
Glucose 244 mg/dl (70-99) H 04/12/23 03:58
Vital Signs and I&O:
Vital Signs
Temp Pulse Resp BP Pulse Ox
102.4 F H 70 14 133/103 100
04/12/23 11:50 04/12/23 11:45 04/12/23 11:45 04/09/23 11:41 04/12/23 11:50
Vital Signs
Temp Pulse Resp BP Pulse Ox
102.4 F H 70 14 133/103 100
04/12/23 11:50 04/12/23 11:45 04/12/23 11:45 04/09/23 11:41 04/12/23 11:50
Intake & Output
04/10/23 04/11/23 04/12/23 04/13/23
06:59 06:59 06:59 06:59
Intake Total 1484.5 / 1541.1 1464.4 / 1514.0 984.2 / 1026.6 300.1 / 300.1
Output Total 0 / 0
Balance 1484.5 / 1541.1 1464.4 / 1514.0 984.2 / 1026.6 300.1 / 300.1
Physical Exam
Physical Exam
General: Intubated and sedate
Neck: Supple, no JVD, HJR, carotids +2 B/L, no bruits bilaterally.
Heart: Non displaced PMI, RRR, no murmurs, No S3, S4, no rubs.
Lungs: Scattered rhonchi
Abdomen: Normal bowel sounds, soft, non-tender, non-distended.
Extremities: No clubbing, cyanosis or edema bilaterally.
Neuro: Intubated and sedated
[2023-04-12] MEDS: VANCOCIN HCL 500 MG 100 IV (14:47)
[2023-04-12] MEDS: HEPARIN 3600 UNITS INTRACATH (15:28)
--- NOTE | 2023-04-12 15:29 | W.PN.HOSP.TC ---
Today's Communication/Plan
-
Continue vent support
Hemodialysis with support of vasopressors
Empiric antibiotics monitoring temperature curve.
Poor prognosis
Ongoing goals of care discussion
Assessment / Plan
Assessment / Plan
Impression:
Acute hypoxic respiratory failure status post intubation mechanical ventilation
Acute CHF reduced EF
Non-STEMI with peak troponin 8.5
Acute pulmonary edema
Shock with severe hypotension requiring IV pressors, suspect cardiogenic less likely sepsis
Lactic acidosis
Type II ID secondary to demand ischemia
Thrombocytopenia likely secondary to severe sepsis
Anemia of chronic disease
Conditions prior to admission:
CHF unknown EF
CAD.
Cardiomyopathy
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
Severe aortic stenosis
End-stage renal disease on HD.
Right chest hemodialysis catheter.
Essential hypertension
Dyslipidemia
Plan:
Acute hypoxic respiratory failure.
Intubated on 04/07 in ED for severe respiratory distress and hypoxia
Chest x-ray with bilateral pulmonary edema and cardiomegaly.
Patient with history of CAD, suspected cardiomyopathy, severe aortic stenosis as well as end-stage renal disease.
Continue vent support.
Continue sedation with propofol
Hemodynamics/volume optimization with HD, attempt to wean off norepinephrine as tolerates.
Continue with tube feeds
Cardiovascular:
Acute CHF reduced EF.
Non-STEMI with peak troponin 8.5
Pulmonary edema
Patient with suspected CAD and cardiomyopathy, severe aortic stenosis, hypertension
Echocardiogram with severely reduced LVEF at 25% and critical aortic stenosis
Requested medical records from recent hospitalization at [facility]
With hypotension hold metoprolol and Norvasc.
Per patient sisters and brothers patient has refused surgery in the past for aortic valve.
Per cardiology okay to discontinue heparin drip.
ESRD on hemodialysis
Significant difficulty for volume removal/ultrafiltration due to hypotension
Nephrology on board
MRSA screen positive with no clear evidence of pneumonia.
Initial chest x-ray with diffuse interstitial infiltrate consistent with pulmonary edema improved with hemodialysis.
Abnormal urinalysis in patient with end-stage renal disease.
Follow blood cultures negative so far
Follow urine culture negative so far
Right chest HD catheter in place
Sputum sample with MRSA
Empiric antibiotics: Vancomycin/Zosyn
Trend fever curve and can discontinue Zosyn once afebrile >24h.
Anemia, suspect anemia of chronic disease
Trend hemoglobin. No luminal bleeding noted. EPO and IV iron per nephrology
Thrombocytopenia
Unclear if chronic no prior labs.
Patient was on heparin drip however also with severe sepsis
Check heparin associated antiplatelet antibodies
Unclear certainly if patient exposed to heparin prior to admission during dialysis or at prior hospitalizations recently
Full code
DVT prophylaxis: Heparin.
N.p.o.
Discussed case in detail with 2 sisters and patient brother at bedside on 04/10/2023. Family states the patient has refused surgery in regards for the aortic valve in the past. Sisters stated patient had expressed her wishes in the past that she did
not want to live artificially and did not want intubation. However no living will. Patient hospitalization course was explained in detail with family members at bedside. Multiple questions were answered to their satisfaction. Family stated they
will talk to patient's son however they understand son would be hesitant to change CODE STATUS. Patient has total of 6 other siblings. 2 sisters and brothers appreciated the update however they would like more time over the weekend to discuss
among other relatives and patient's son. Significant amount of time was spent discussing and answering all questions regarding patient hospitalization so far.
Prognosis guarded
Total Critical Care Time_ 45 minutes. I was immediately available to the patient and staff. I personally examined, reviewed labs, diagnostic images/reports, interpretations, treatment plans, discussed patient care with other providers and family
or caregivers (if patient is unable to make decisions), entered orders as appropriate and documented the medical record.
Anticipated Discharge: 24 - 48 hours
Subjective/Interval History
-
Date of Service: April 12, 2023
Objective Data
-
Labs:
Laboratory Results
04/12/23
03:58
WBC 21.8 H
Hgb 9.3 L
Hct 27.4 L
Plt Count 65 L
HCO3 21.3
Sodium 128 L
Potassium 3.5
Chloride 95 L
Carbon Dioxide 22
BUN 47 H
Creatinine 4.3 H*
Glucose 244 H
Calcium 8.8
Total Bilirubin 1.1
AST 24
ALT 40 H
Alkaline Phosphatase 99
Vital Signs:
Vital Signs
Temp Pulse Resp BP Pulse Ox
102.4 F H 70 14 133/103 100
04/12/23 11:50 04/12/23 11:45 04/12/23 11:45 04/09/23 11:41 04/12/23 11:50
I&O
04/11/23 04/12/23 04/13/23
06:59 06:59 06:59
Intake Total 1464.4 / 1514.0 984.2 / 1026.6 300.1 / 300.1
Output Total 0 / 0
Balance 1464.4 / 1514.0 984.2 / 1026.6 300.1 / 300.1
Physical Exam
-
General: Well Developed and No Apparent Distress
HEENT: Normocephalic, Atraumatic and Moist Mucous Membranes
Respiratory: Clear to Auscultation
Cardiac: Regular Rhythm and S1/S2; Negative Murmur, Rub or Gallop
GI: Soft, Nontender, Nondistended and Normal Bowel Sounds; Negative Organomegaly
Rectal: Deferred by Provider
Musculoskeletal: No Clubbing, No Cyanosis and No Edema
Skin: Negative Rash
Neuro: Sedated and Nonfocal/Grossly Intact
--- NOTE | 2023-04-12 16:07 | CM ---
M following re: discharge planning.
Discussed in Rounds, reviewed pt's chart, met with pt. Per Rounds meeting, pt remains intubated, on ventilator, continue supportive care.
D/C plan: uncertain at this time.
CM will follow with discharge plan updates as hospitalization progresses
--- NOTE | 2023-04-12 16:41 | PTCARENOTE ---
Patient tolerated dialysis. Propofol has been off since 11:45 slightly prior to dialysis. Patient has been afebrile, minimally responsive and tolerated 1L off during dialysis. Continuing to turn and reposition. Awaiting further goals of care
discussions.
[2023-04-12] MEDS: LIPITOR 40 MG TUBE (17:12)
[2023-04-12] MEDS: NOVOLOG FLEXPEN-HIGH RESISTANCE 2 UNITS SC (17:45)
[2023-04-12 17:58] LABS: Glucose - Point of Care 159 mg/dl (70-99)
[2023-04-12] MEDS: NOVOLOG FLEXPEN-HIGH RESISTANCE 7 UNITS SC (23:16)
[2023-04-12 23:30] LABS: Glucose - Point of Care 261 mg/dl (70-99)
--- NOTE | 2023-04-12 23:47 | PTCARENOTE ---
Pt received this shift Intubated and on Levophed gtt. Lung sounds Rhonchi B/L. V paced on monitor. Sp02 100% on 40% fio2. Tolerating nepro 25cc/hr TF at this time. Abd soft, active BS. Pt with temp 101.4 rectal, tylenol given via DHT. perineal care
done and mouth care done. q2 turns and repositioning
[2023-04-13] MEDS: TYLENOL ORAL SOLUTION 650 MG TUBE (00:28)
--- NOTE | 2023-04-13 00:36 | PTCARENOTE ---
tmax 102.6, tylenol given via DHT per PRN orders. blood cultures drawn per orders
--- NOTE | 2023-04-13 01:05 | PTCARENOTE ---
Pt remains with precedex infusing, restrained in 4 point, emotional support given. Turns provided
[2023-04-13 04:04] LABS: % Basophils 0.2 % (0-2); % Eosinophils 0.1 % (0-6); % Immature Granulocytes 0.8 % (0-0.5); % Lymphocytes 3.3 % (20.5-51.1); % Monocytes 6.3 % (1.7-9.3); % Neutrophils 89.3 % (42.2-75.2); Absolute Basophils 0.1 10^3/uL (0-0.2); Absolute Immature Granulocytes 0.2 10^3/uL (0-0.05); Absolute Lymphocytes 0.8 10^3/uL (1.2-3.4); Absolute Monocytes 1.6 10^3/uL (0.1-0.6); Absolute Neutrophils 22.2 10^3/uL (1.4-6.5); Hematocrit 28.8 % (37.0-47.0); Hemoglobin 9.3 g/dL (12.0-16.0); Mean Corp Hgb Conc. 32.3 g/dL (33.0-37.0); Mean Corpuscular Hgb 32.1 pg (27.0-31.0); Mean Corpuscular Volume 99.3 fL (81.0-99.0); Nucleated Red Blood Cells % 3.1 %; Platelet Count 92 10^3/uL (130-400); Red Cell Dist. Width 23.8 % (11.5-14.5); White Blood Cell Count 24.9 10^3/uL (4.8-10.8)
--- NOTE | 2023-04-13 04:13 | PTCARENOTE ---
Pt with tmax 102.6, cooling blanket placed
[2023-04-13 04:19] LABS: Blood Urea Nitrogen 28 mg/dl (7-17); Calcium 7.8 mg/dl (8.4-10.2); Carbon Dioxide 22 mmol/L (22-30); Chloride 100 mmol/L (98-107); Estimated Creatinine Clearance 12 ml/min; Glucose 221 mg/dl (70-99); Potassium 3.3 mmol/L (3.5-5.1); Sodium 129 mmol/L (135-145); Triglycerides 100 mg/dl (10-149); eGFR 16.55
[2023-04-13] MEDS: KCL 50 IV (04:59)
[2023-04-13] MEDS: NOVOLOG FLEXPEN-HIGH RESISTANCE 4 UNITS SC (05:00)
[2023-04-13 05:55] LABS: Normal RBC Morphology No
[2023-04-13 05:56] LABS: Anisocytosis 2+
[2023-04-13 05:57] LABS: Macrocytosis 1+; Microcytosis 1+; Ovalocytes 1+; Poikilocytosis 1+; Target Cells Slight
[2023-04-13 05:58] LABS: Acanthocytes 1+; Schistocytes Slight
[2023-04-13 06:00] VITALS: BMI 21.8
--- NOTE | 2023-04-13 07:15 | PTCARENOTE ---
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 Patient remains intubated, off sedation, minimally responsive. Was able to follow command of opening mouth but nothing else. Pupils are equal and reactive. Vent settings remain the same AC 14/350/5/40%
saturation 100%. Bloody secretions through ETT. Sputum sample obtained. Patient is Vpaced on monitor. bilateral cold extremities, popliteal pulses only. Remains on 11mcg of levophed. BP obtained through right radial lisa, has been zero'ed to
atmospheric pressure and leveled at phlebostatic axis. Patient is NPO, tolerated tube feed through dobhoff, was incontinent of bowel this morning. Skin cleansed. Patient had temp overnight, was on cooling blanket. REctal temp probe. Will review
orders and awaiting family discussions ongoing regarding goals of care.
[2023-04-13] MEDS: LOW STRENGTH ASPIRIN 81 MG TUBE (07:19)
--- NOTE | 2023-04-13 07:42 | W.PN.INTV ---
Today's Communication / Plan
Recommendations
Ventilator adjusted
Spontaneous breathing trial once off pressors and perhaps after tomorrow's hemodialysis
Remove fluid as tolerated
Cardiology note suggest palliative care/hospice
Prognosis unfortunately quite poor
Assessment
-
Mrs Usha Tapia is an 82/W adm 04-07 from [place] with lethargy and severe cough after HD on DOA, and POx 80-83% on RA prior to transfer. PMH: CAD, CHF, HTN, NIDDM, CKD on HD, , reported recent adm to OSH where she was recommended coronary stenting
and TAVR but patient refused (not accepted in transfer to [facility] as was not a surgical candidate). On adm (first adm), hypoxemia, hypotension (received 1L NS at ER), developed pulmonary edema and worsening hypoxemia, intubated at ICU.
Acute hypoxemic respiratory failure
Intubated at ICU 04-07-23
Extubated
Pulmonary edema
Missed HD session 04-05-23 (last HD 04-03)
MRSA bronchitis/pneumonia
Enterococcus UTI
Leukocytosis
Anemia
Thrombocytopenia
Metabolic/lactic acidosis
Elevated troponins and BNP: NSTEMI
Mild transaminitis
COVID/flu negative
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
CAD
CHF-EF 25%
PPM
HTN
NIDDM
CKD on HD
Reported recent adm to OSH where she was recommended coronary stenting and TAVR but patient refused
Plan:
Critically ill on 2 pressors, intubated, sedated, minimally responsive
Ventilator settings reviewed
Wean FiO2
Continue to follow ABG or VBG
Spontaneous breathing trial once off pressors and fluid overload improved-will consider after dialysis 04/14/2023
Follow chest x-ray
VAP prevention protocol
Nebulizers if needed
Analgesia and sedatives as needed-monitor for oversedation
Cultures reviewed
Urine culture 04/07/2023-Enterococcus faecalis
MRSA screen positive
Sputum culture positive MRSA
Follow leukocytosis-still elevated at 21.8
Monitor lactate
Pressors as needed-currently on norepinephrine and vasopressin
Hold antihypertensive medications-amlodipine and metoprolol as outpatient
Empiric antibiotics continue
Follow-up renal function
Nephrology evaluation ongoing-correspondence reviewed
Hemodialysis tentatively scheduled for 04/14/2023
Continue to replace electrolytes
Monitor intake/output, lower extremity edema and weight
Monitor blood sugar
Insulin supplementation as needed
Cardiology following-correspondence reviewed-reviewed with Dr. Ramirez on 04/12/2023
Cardiology correspondence-Dr. Hatch 04/13/2023 reviewed-palliative care/hospice recommended
Patient had declined PCI as well as TAVR
Troponin trended
Heparin drip discontinued
Monitor hemoglobin and platelet count
Transfuse as needed
Aspirin
Follow blood sugar
Insulin supplementation as needed
DVT prophylaxis-on heparin
GI prophylaxis-on pantoprazole
Nutrition
Bedside range of motion
Dr. Sparrow call patient [id number] not answer, however, left detailed message on answering machine updating on current clinical situation, multiorgan dysfunction, ongoing supportive care and willingness to call again if additional questions need
to be answered
Critical care statement: A total of 38 minutes of critical care time was provided for this patient today. This includes management of unstable vital signs, evaluation of the patient at bedside, reviewing the patient's pertinent medical records
including radiographs, ventilator management, pressor management, microbiology, laboratory evaluations, and discussion with primary team, consultants, pharmacy, nutrition, physical therapy, case management, charge nurse, critical care nursing, and
respiratory therapy.
Diagnostic tests:
CXR 04-07-23: no previous films. pulm vasc congestion. R chest tunnelized HD cath. RUE midline cath.
CXR 04-08-23: interim intubation, pulm edema, small bilateral pleural effusions
Subjective Dataa
Subjective Data
Date of Service:
Date of Service: April 13, 2023
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
Subjective:
Opens eyes, noncommunicative, no distress, no obvious pain,
Review of Systems
General: Other (Per HPI)
Objective Data
Data Reviewed
Vital Signs / I&O / Oxygen:
Vital Signs
Temp Pulse Resp BP Pulse Ox
97.9 F 72 14 133/103 100
04/13/23 05:32 04/13/23 07:15 04/13/23 07:15 04/09/23 11:41 04/13/23 07:30
Intake and Output
04/12/23 04/13/23 04/14/23
06:59 06:59 06:59
Intake Total 984.2 / 1026.6 1099.7 / 1145.3 91.2 / 91.2
Output Total 0 / 0 0 / 0
Balance 984.2 / 1026.6 1099.7 / 1145.3 91.2 / 91.2
SaO2 [A/C] 100
SaO2 100
Nasal Cannula flow liters per 55
minute
Physical Exam
General: Respiratory Distress (n) and Comfortable
HEENT: Normocephalic, Anicteric and Moist Mucous Membranes
Cardiovascular: Regular Rhythm, Murmur (AV) and Other ( decreased peripheral pulses)
Respiratory: Clear, Wheeze (n), Crackles (n), Rhonchi (nn), Non-Labored Respirations, Accessory Resp Muscle Use, Stridor (n) and ET Tube
GI: Soft, Non Distended and NG Tube
Neurology: Other (sedated on the ventilator)
Skin: Dry, Good Color and Cyanosis (n)
Labs/Micro/Reports
Lab Data
04/13/23 03:38
04/13/23 03:38
Microbiology
04/07/23 17:37 Blood/Venous Blood Culture - Final
No Growth - Final Report
04/07/23 15:50 Blood/Venous Blood Culture - Final
No Growth - Final Report
04/08/23 10:33 Tracheal Aspirate Respiratory Culture - Final
Staph aureus MRSA
04/08/23 10:33 Tracheal Aspirate Gram Stain - Final
--- NOTE | 2023-04-13 08:00 | W.PN.NEPH.PH ---
Today's Communication / Plan
-
Maintain pressors to keep MAP greater than 65
Remains intubated
Dialysis tomorrow
replete potassium
Assessment/Plan
-
IMP:
Acute Hypoxic respiratory failure
acute on chronic CHF exacerbation, unclear type
suspected Septic shock secondary to UTI/possible pneumonia
End-stage renal disease on hemodialysis-[facility]
ischemic coronary artery disease
severe aortic stenosis
Essential hypertension now hypotension
Hypercholesterolemia
Chronic anemia
PPM
Plan:
-HD tomorrow, orders provided
-difficult to remove volume easily given hypotension and severe
-No real clear-cut endpoints here as patient would not undergo aortic valve surgery
-keep MAP>65 with pressors
-Son is POA and driving goals of care. She had DNI/DNR at [facility] but was intubated here. Other family (siblings) have expressed preference for comfort.
-prognosis is poor
-critical care time 31 minutes
-
-
Date of Service: April 13, 2023
CC / HPI / ROS
-
Chief Complaint:
ESRD
History of Present Illness:
remains on pressor, intubated FIo2 40%
WBC remains elevated
ESRD Wednesday
weights fairly stable
plts falling
critically ill in ICU
Review of Systems:
sedated and intubated
febrile
Labs
-
Labs:
WBC 24.9 10^3/uL (4.8-10.8) H 04/13/23 03:38
RBC 2.90 10^6/uL (4.20-5.40) L 04/13/23 03:38
Hgb 9.3 g/dL (12.0-16.0) L 04/13/23 03:38
Hct 28.8 % (37.0-47.0) L 04/13/23 03:38
Plt Count 92 10^3/uL (130-400) L D 04/13/23 03:38
Sodium 129 mmol/L (135-145) L 04/13/23 03:38
Potassium 3.3 mmol/L (3.5-5.1) L 04/13/23 03:38
Chloride 100 mmol/L (98-107) 04/13/23 03:38
Carbon Dioxide 22 mmol/L (22-30) 04/13/23 03:38
BUN 28 mg/dl (7-17) H 04/13/23 03:38
Creatinine 2.8 mg/dL (0.6-1.0) H 04/13/23 03:38
eGFR 16.55 04/13/23 03:38
Glucose 221 mg/dl (70-99) H 04/13/23 03:38
Calcium 7.8 mg/dl (8.4-10.2) L 04/13/23 03:38
Rqb-J-Icqomlupajr Pept > 54175 pg/ml 04/07/23 20:02
Albumin 2.4 g/dl (3.5-5.0) L 04/12/23 03:58
Physical Exam
-
Vital Signs:
Vital Signs
Temp Pulse Resp BP Pulse Ox
97 F 72 14 133/103 100
04/13/23 07:49 04/13/23 07:15 04/13/23 07:15 04/09/23 11:41 04/13/23 07:49
Cardiovascular:: Regular rate and rhythm
Respiratory:: Bilateral: Coarse
Lung Excursion:: Normal
Abdomen:: Nontender and Soft
Bowel Sounds:: Normal
Extremity Edema:: None: Bilateral:
Barcenas Catheter: No
Other Findings::
gen: intubated and sedated
--- NOTE | 2023-04-13 08:47 | PHA.VAN.FU ---
Vancomycin Assessment / Plan
- Assessment
Hemodialysis Schedule: MWF
WBC's are: Trending Up
- Dosing Plan
Dosing by Level: Hold off on dosing today
- Monitoring Plan
Random Level: 04/14 pre-HD
- Follow Up
Pharmacy will continue to follow.
Vancomycin Follow UP
- -
Patient Age: 82
Patient Sex: Female
Vancomycin Day #: 7
Indication: Pulmonary/Respiratory
Requesting Provider: Dr. Kim
Pertinent Antimicrobial Allergies:
NKDA
Height / Weight:
Height 5 ft
Actual Weight 50.7 kg
Pertinent Past Medical History: ESRD on HD MWF
- Vital Signs / Lab Results
Temp Pulse Resp BP Pulse Ox
97 F 72 14 133/103 100
04/13/23 07:49 04/13/23 07:15 04/13/23 07:15 04/09/23 11:41 04/13/23 07:49
Lab Results - Hematology
04/11/23 04/12/23 04/13/23
04:26 03:58 03:38
WBC 15.5 H 21.8 H 24.9 H
Lab Results - Chemistry
04/11/23 04/12/23 04/13/23
04:26 03:58 03:38
BUN 31 H 47 H 28 H
Creatinine 3.5 H 4.3 H* 2.8 H
Estimated Creat Clear 9 7 12
Albumin 2.4 L
Microbiology Results
04/07/23 17:37 Blood Culture - Final
Blood/Venous No Growth - Final Report
04/07/23 15:50 Blood Culture - Final
Blood/Venous No Growth - Final Report
Therapeutic Drug Monitoring
Random Vancomycin 20.0 ug/ml 04/12/23 03:58
--- NOTE | 2023-04-13 08:58 | W.PN.CARDCBS ---
Today's Communication / Plan
-
Prognosis grave.
Continue supportive care.
With critical aortic stenosis, cardiomyopathy, non-STEMI, and end-stage renal disease on hemodialysis there is no optimal treatment.
I would recommend palliative care and hospice.
Continue aspirin and atorvastatin.
Impression / Plan
-
PCP: Dr. Taylor
Ceramic Chemist: Unknown
Impression:
Acute hypoxic respiratory failure requiring intubation
Suspected septic shock
Acute on chronic HF unknown EF
NSTEMI with peak troponin of 8.5
Suspected sepsis, UTI
CAD
Severe
s/p PPM
HTN
HLD
ESRD on HD
Echo 04/08/2023: Ejection fraction 25%, septal akinesis, anterior and inferior acuna are severely hypokinetic mild concentric LVH, severe MR, severe AAS with mean gradient of 71 mmHg and arnav of 0.2 cm�
Plan:
She remains intubated and on high-dose Levophed. I reviewed her echo and her prognosis is grave.
Blood pressure remains marginal. For dialysis in a.m.
Continue volume removal as tolerated.
Patients with cardiomyopathy, critical aortic stenosis, coronary disease, and dialysis do not do well with transcatheter aortic valve replacement.
I would recommend supportive care and discussions with family and pursuing hospice.
She has multiorgan system failure.
Continue aspirin, and atorvastatin. No beta-rochelle or YURIY inhibitor due to hypotension.
CC time 35 min
HPI: Usha is an 82 year old female with PMH of CAD, severe , chronic heart failure, PPM, HTN, HLD, and ESRD on HD who presented to [facility] for evaluation of lethargy. She was reportedly recently admitted at an outside hospital where she underwent
cardiac catheterization and was recommended PCI and TAVR which was not performed for unclear reasons. [facility], however came to ER as she was noted to be lethargic and hypoxic with cough. She was
unable to provide history given respiratory distress and ultimately required intubation overnight. Evaluation in ER revealed evidence of acute heart failure with pulmonary edema and moderate b/l pleural effusions on chest xray. proBNP >27,000.
Labwork also revealed suspected sepsis with leukocytosis, elevated lactic acid, and UA consistent with possible UTI. She was admitted for further workup and evaluation and cardiology was consulted.
Progress Note - Ceramic Chemist
Subjective
Date of Service: April 13, 2023
remains intubated and sedated.
Objective
Labs:
04/13/23 03:38
04/13/23 03:38
Labs
Hgb 9.3 g/dL (12.0-16.0) L 04/13/23 03:38
Hct 28.8 % (37.0-47.0) L 04/13/23 03:38
Plt Count 92 10^3/uL (130-400) L D 04/13/23 03:38
PT 18.4 Sec (11.4-14.6) H 04/08/23 05:05
INR 1.52 04/08/23 05:05
APTT 99.4 Sec (23.4-35.0) H 04/10/23 07:06
Sodium 129 mmol/L (135-145) L 04/13/23 03:38
Potassium 3.3 mmol/L (3.5-5.1) L 04/13/23 03:38
BUN 28 mg/dl (7-17) H 04/13/23 03:38
Creatinine 2.8 mg/dL (0.6-1.0) H 04/13/23 03:38
Glucose 221 mg/dl (70-99) H 04/13/23 03:38
Vital Signs and I&O:
Vital Signs
Temp Pulse Resp BP Pulse Ox
97 F 72 14 133/103 100
04/13/23 07:49 04/13/23 07:15 04/13/23 07:15 04/09/23 11:41 04/13/23 07:49
Vital Signs
Temp Pulse Resp BP Pulse Ox
97 F 72 14 133/103 100
04/13/23 07:49 04/13/23 07:15 04/13/23 07:15 04/09/23 11:41 04/13/23 07:49
Intake & Output
04/11/23 04/12/23 04/13/23 04/14/23
06:59 06:59 06:59 06:59
Intake Total 1464.4 / 1514.0 984.2 / 1026.6 1099.7 / 1145.3 91.2 / 91.2
Output Total 0 / 0 0 / 0
Balance 1464.4 / 1514.0 984.2 / 1026.6 1099.7 / 1145.3 91.2 / 91.2
Physical Exam
Physical Exam
GEN: No distress, intubated/sedated
HEENT: supple, anicteric, mmm
LUNGS: scatt rhonchi
CV: Reg, S1/S2, 3/6 syst LSB, S3+
ABD: soft, BS+, NT/ND
EXT: No edema
NEURO: unabel to asssess
SKIN: No rash
--- NOTE | 2023-04-13 10:05 | W.PN.HOSP.TC ---
Today's Communication/Plan
-
Continue vent support.
Continue vasopressors
HD per schedule
Broad-spectrum antibiotics
Repeat chest x-ray.
Ongoing goals of care discussion
Prognosis poor. With multiple organ failure, age and frailty, situation comes close to futile care.
Assessment / Plan
Assessment / Plan
Impression:
Acute hypoxic respiratory failure status post intubation mechanical ventilation
Acute CHF reduced EF
Non-STEMI with peak troponin 8.5
Acute pulmonary edema
Shock with severe hypotension requiring IV pressors, suspect cardiogenic less likely sepsis
Lactic acidosis
Type II MD secondary to demand ischemia
Thrombocytopenia likely secondary to severe sepsis
Anemia of chronic disease
Conditions prior to admission:
CHF unknown EF
CAD.
Cardiomyopathy
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
Severe aortic stenosis
End-stage renal disease on HD.
Right chest hemodialysis catheter.
Essential hypertension
Dyslipidemia
Plan:
Acute hypoxic respiratory failure.
Intubated on 04/07 in ED for severe respiratory distress and hypoxia
Chest x-ray with bilateral pulmonary edema and cardiomegaly.
Patient with history of CAD, suspected cardiomyopathy, severe aortic stenosis as well as end-stage renal disease.
Continue vent support.
Continue sedation with propofol
Hemodynamics/volume optimization with HD, attempt to wean off norepinephrine as tolerates.
Continue with tube feeds
Cardiovascular:
Acute CHF reduced EF.
Non-STEMI with peak troponin 8.5
Pulmonary edema
Patient with suspected CAD and cardiomyopathy, severe aortic stenosis, hypertension
Echocardiogram with severely reduced LVEF at 25% and critical aortic stenosis
Requested medical records from recent hospitalization at [facility]
With hypotension hold metoprolol and Norvasc.
Per patient sisters and brothers patient has refused surgery in the past for aortic valve.
Per cardiology okay to discontinue heparin drip.
ESRD on hemodialysis
Significant difficulty for volume removal/ultrafiltration due to hypotension
Nephrology on board
Persistent fever
MRSA screen positive with no clear evidence of pneumonia.
Initial chest x-ray with diffuse interstitial infiltrate consistent with pulmonary edema improved with hemodialysis.
Abnormal urinalysis in patient with end-stage renal disease.
Follow blood cultures negative so far
Follow urine culture negative so far
Right chest HD catheter in place
Sputum sample with MRSA
Empiric antibiotics: Vancomycin/Zosyn
Trend fever curve and can discontinue Zosyn once afebrile >24h.
Anemia, suspect anemia of chronic disease
Trend hemoglobin. No luminal bleeding noted. EPO and IV iron per nephrology
Thrombocytopenia
Unclear if chronic no prior labs.
Patient was on heparin drip however also with severe sepsis
Check heparin associated antiplatelet antibodies
Unclear certainly if patient exposed to heparin prior to admission during dialysis or at prior hospitalizations recently
Full code
DVT prophylaxis: Heparin.
N.p.o.
Discussed case in detail with 2 sisters and patient brother at bedside on 04/10/2023. Family states the patient has refused surgery in regards for the aortic valve in the past. Sisters stated patient had expressed her wishes in the past that she did
not want to live artificially and did not want intubation. However no living will. Patient hospitalization course was explained in detail with family members at bedside. Multiple questions were answered to their satisfaction. Family stated they
will talk to patient's son however they understand son would be hesitant to change CODE STATUS. Patient has total of 6 other siblings. 2 sisters and brothers appreciated the update however they would like more time over the weekend to discuss
among other relatives and patient's son. Significant amount of time was spent discussing and answering all questions regarding patient hospitalization so far.
04/13: Attempted to speak with patient's son over the phone who refers all conversations to patient's sister. Spoke with patient's sister Nancy. She understands futility of situation. She plans to visit later today on 04/13 for further discussion.
Prognosis guarded
Total Critical Care Time_ 45 minutes. I was immediately available to the patient and staff. I personally examined, reviewed labs, diagnostic images/reports, interpretations, treatment plans, discussed patient care with other providers and family
or caregivers (if patient is unable to make decisions), entered orders as appropriate and documented the medical record.
Anticipated Discharge: > 48 hours
Subjective/Interval History
-
Date of Service: April 13, 2023
Objective Data
-
Labs:
Laboratory Results
04/13/23
03:38
WBC 24.9 H
Hgb 9.3 L
Hct 28.8 L
Plt Count 92 L D
Sodium 129 L
Potassium 3.3 L
Chloride 100
Carbon Dioxide 22
BUN 28 H
Creatinine 2.8 H
Glucose 221 H
Calcium 7.8 L
Vital Signs:
Vital Signs
Temp Pulse Resp BP Pulse Ox
97 F 72 14 133/103 100
04/13/23 07:49 04/13/23 07:15 04/13/23 07:15 04/09/23 11:41 04/13/23 07:49
I&O
04/12/23 04/13/23 04/14/23
06:59 06:59 06:59
Intake Total 984.2 / 1026.6 1099.7 / 1145.3 136.8 / 136.8
Output Total 0 / 0 0 / 0
Balance 984.2 / 1026.6 1099.7 / 1145.3 136.8 / 136.8
Physical Exam
-
General: Well Developed and No Apparent Distress
HEENT: Normocephalic, Atraumatic and Moist Mucous Membranes
Respiratory: Clear to Auscultation
Cardiac: Regular Rhythm and S1/S2; Negative Murmur, Rub or Gallop
GI: Soft, Nontender, Nondistended and Normal Bowel Sounds; Negative Organomegaly
Rectal: Deferred by Provider
Musculoskeletal: No Clubbing, No Cyanosis and No Edema
Skin: Negative Rash
Neuro: Nonfocal/Grossly Intact
[2023-04-13] MEDS: LEVOPHED 258 MG IV ×2 (10:24→21:09)
--- NOTE | 2023-04-13 11:43 | PN.CDI ---
Addendum entered and electronically signed by Willem Dill MD 04/13/23 16:44:
No additional comments, refer to the note
Original Note:
CDI
- -
CDI:
Physician Documentation Request
Admit Date: 04/07/23 20:52
Dear Doctor Aniyah,
Patient admitted for acute hypoxic respiratory failure.
2/5 Cardiology PN: 'NSTEMI with peak troponin of 8.5'
2/5 Hospitalist PN: 'Non-STEMI with peak troponin 8.5...Type II IL secondary to demand ischemia'
Please clarify the following regarding the documented myocardial infarction:
NSTEMI
Type II IL secondary to demand ischemia
Other
Use of terms such as suspected, likely, concern for, or probable (associated with a specific diagnosis that is being evaluated, monitored, or treated as if it exists) are acceptable and can be coded in the inpatient setting, when documented at the
time of discharge.
Thank you,
Tara Glass RN, BSN
CDI Specialist
Available via [place] text
Please use your independent medical judgment in providing your response.
[2023-04-13] MEDS: NOVOLOG FLEXPEN-HIGH RESISTANCE 2 UNITS SC (12:03)
[2023-04-13] MEDS: NOVOLOG FLEXPEN 4 UNITS SC ×2 (12:04→18:46)
[2023-04-13 12:05] LABS: Glucose - Point of Care 140 mg/dl (70-99)
[2023-04-13 12:11] LABS: Glycohemoglobin (HgbA1c) 6.6 % (4.0-5.6)
[2023-04-13 12:35] LABS: Glucose - Point of Care 154 mg/dl (70-99)
[2023-04-13 13:35] VITALS: BP 108/61
--- NOTE | 2023-04-13 13:44 | PTCARENOTE ---
arterial wave form has been dampening. Obtained BP of 108/61 with cuff on left forearm
[2023-04-13 17:47] LABS: Glucose - Point of Care 120 mg/dl (70-99)
[2023-04-13] MEDS: LIPITOR 40 MG TUBE (17:56)
[2023-04-13] MEDS: NOVOLOG FLEXPEN-HIGH RESISTANCE 1 UNITS SC (18:01)
--- NOTE | 2023-04-13 19:21 | W.PN.UPDATE ---
Addendum entered and electronically signed by MIMI Lindquist 04/13/23 20:51:
Edited time: 718 pm
Original Note:
Update Note
Progress Note Update
0718 Called to discussed goals of care with family. Sister and son decided to make patient comfort care with terminal extubation.
--- NOTE | 2023-04-13 22:15 | PTCARENOTE ---
04/13/23 -
received pt from adelso RN, prior to any assessments, i sat and spent time with patients son thalia because patients cousin was concerned about thalia and not being able to make decisions regarding his mom.
after spending time discussing his mother and her very poor prognosis, patients son needed reassurance that his mother would not be in any pain. i explained everything that would be done for his mother to ensure her utmost comfort. after prayer at
the bedside, the son, thalia decided to make his mother comfort care and terminal extubation.
the son requested not to be called when she passed, just call the cousin who was at the bedside as well. patients son spoke with thalia the DRUG SAFETY ASSOCIATE, patient was changed to comfort care.
prior to leaving the cousin anabelle asked if she could come back after dropping thalia off at home so she can be with Aruna, i told her of course and i will not stop meds or remove ETT until she arrived to be with her.
[2023-04-13] MEDS: MORPHINE SULFATE 2 MG IV (22:58)
--- NOTE | 2023-04-13 23:06 | RESPNOTE ---
Pt terminally extubated
--- NOTE | 2023-04-13 23:26 | W.PN.DEATH ---
Pronouncement of
-
Called to see patient to pronounce.
No spontaneous heart tones or respirations noted.
Patient not responsive to verbal stimuli.
Patient is pronounced .
Time of : 23:22
Date of : 04/13/23
Cause of : Acute respiratory failure due to acute congestive heart failure
Family Notified: Yes
--- NOTE | 2023-04-14 00:40 | PTCARENOTE ---
04/13/23 - family returned (not the son) to be with patient as she passed, when they arrived the terminal extubation took place, all gtts stopped. family and i stayed at patient bedside with music playing, patient passed peacefully at [id number], family
left at midnight. patient washed, all lines removed except for dialysis cath, belongings went with her to [place], [facility] called and patient is not a candidate, patient taken to [facility] [place], [place] at [address]30
== END 2023-04-13 23:22 | disposition expired ==
LOC: ICU 20:52
PROVIDERS: Emergency Medicine; Hospitalist; Internal Medicine Cardiovascular Disease; Nurse Practitioner; Nurse Practitioner Family; Nurse Practitioner Primary Care; Specialist; ADMITTING PHYSICIAN Hospitalist; ATTENDING PHYSICIAN Internal Medicine; CONSULT PHYSICIAN Internal Medicine; EMERGENCY PHYSICIAN Emergency Medicine; FAMILY PHYSICIAN Internal Medicine; OTHER PHYSICIAN Internal Medicine Cardiovascular Disease; OTHER PHYSICIAN Internal Medicine Pulmonary Disease
PROC: 5A1955Z Respiratory Ventilation, Greater than 96 Consecutive Hours (ICD-10-PCS; 2023-04-07)
PROC: 5A1D70Z Performance of Urinary Filtration, Intermittent, Less than 6 Hours Per Day (ICD-10-PCS; 2023-04-08)
DX: I13.2 Hypertensive heart and chronic kidney disease with heart failure and with stage 5 chronic kidney disease, or end stage renal disease (principal); A41.9 Sepsis, unspecified organism; I21.4 Non-ST elevation (NSTEMI) myocardial infarction; J96.01 Acute respiratory failure with hypoxia; R65.21 Severe sepsis with septic shock; N18.6 End stage renal disease; J18.9 Pneumonia, unspecified organism; I21.A1 Myocardial infarction type 2; N39.0 Urinary tract infection, site not specified; I50.9 Heart failure, unspecified; Z99.2 Dependence on renal dialysis; E11.22 Type 2 diabetes mellitus with diabetic chronic kidney disease; I25.10 Atherosclerotic heart disease of native coronary artery without angina pectoris; E78.00 Pure hypercholesterolemia, unspecified; D64.9 Anemia, unspecified; I08.0 Rheumatic disorders of both mitral and aortic valves; R57.0 Cardiogenic shock
CPT/HCPCS: 36584; 36600; 71045; 71046; 80048; 80053; 80202; 81003; 81015; 82330; 82805; 82962; 83036; 83605; 83735; 83880; 84132; 84302; 84478; 84484; 85025; 85027; 85610; 85730; 86022; 87040; 87070; 87077; 87086; 87147; 87186; 87205; 87502; 87811; 93005; 93306; 94002; 94003; 96361; 96365; 96366; 96375; 99285; C1751; C1769; G0257; J0885; P9047